=== PATIENT | female | born 1945 | race Caucasian/White ===

== ENCOUNTER → 2016-09-09 | Outpatient (REF) | payer MEDICARE, OTHER | LOC: M SFHCWAGY 13:25 | PROVIDERS: ATTEND Nurse Practitioner Women's Health | DX: Z12.4 Encounter for screening for malignant neoplasm of cervix (principal); Z12.12 Encounter for screening for malignant neoplasm of rectum; Z80.41 Family history of malignant neoplasm of ovary | CPT/HCPCS: 36415; 82270; 86304; G0101; G0123 ==

== ENCOUNTER → 2017-08-25 | Outpatient (CLI) | payer MEDICARE, OTHER | LOC: M WHC 11:07 | DX: Z80.41 Family history of malignant neoplasm of ovary (principal) | CPT/HCPCS: 76830 ==

== ENCOUNTER → 2017-12-23 | Outpatient (REF) | payer MEDICARE, OTHER | LOC: M SFHCWAGY 09:54 | DX: Z12.4 Encounter for screening for malignant neoplasm of cervix (principal); N95.2 Postmenopausal atrophic vaginitis ==

== ENCOUNTER → 2017-12-23 | Outpatient (CLI) | payer MEDICARE, OTHER ==
[2017-12-23 18:15] LABS: BASO # 0.1 10^3/uL (0.0-0.2); BASO % 0.7 % (0.0-1.0); EOS # 0.6 10^3/uL (0.0-0.50); EOS % 6.5 % (0.0-3.0); HEMATOCRIT 42.2 % (36.0-47.0); HEMOGLOBIN 13.3 g/dl (12.0-15.5); IMMATURE GRANULOCYTE % 0.3 % (0-3.0); LYMPH # 3.9 10^3/uL (1.5-4.5); LYMPH % 43.4 % (24.0-44.0); MEAN CORPUSCULAR HEMOGLOBIN 29.8 pg (27.0-33.0); MEAN CORPUSCULAR HGB CONC 31.5 g/dl (32.0-36.5); MEAN CORPUSCULAR VOLUME 94.4 fl (80.0-96.0); MONO # 0.8 10^3/uL (0.0-0.8); MONO % 8.7 % (0.0-5.0); NEUTROPHILS # 3.7 10^3/uL (1.8-7.7); NEUTROPHILS % 40.4 % (36.0-66.0); PLATELET COUNT, AUTOMATED 253 10^3/uL (150-450); RED BLOOD COUNT 4.47 10^6/uL (4.00-5.40); RED CELL DISTRIBUTION WIDTH 13.4 % (11.5-14.5); WHITE BLOOD COUNT 9.1 10^3/uL (4.0-10.0)
[2017-12-23 19:00] LABS: ALBUMIN 3.8 GM/DL (3.2-5.2); ALBUMIN/GLOBULIN RATIO 1.23 (1.00-1.93); ALKALINE PHOSPHATASE 81 U/L (45-117); ALT/SGPT 28 U/L (12-78); ANION GAP 6 MEQ/L (8-16); AST/SGOT 19 U/L (7-37); BILIRUBIN,TOTAL 0.2 MG/DL (0.2-1.0); BLOOD UREA NITROGEN 20 MG/DL (7-18); CALCIUM LEVEL 8.9 MG/DL (8.8-10.2); CARBON DIOXIDE LEVEL 28 MEQ/L (21-32); CHLORIDE LEVEL 107 MEQ/L (98-107); CREATININE FOR GFR 0.61 MG/DL (0.55-1.30); GLOMERULAR FILTRATION RATE > 60.0 (>39); GLUCOSE, FASTING 96 MG/DL (70-100); SODIUM LEVEL 141 MEQ/L (136-145); TOTAL PROTEIN 6.9 GM/DL (6.4-8.2)
== END ==
LOC: M RAD 16:30
DX: R22.42 Localized swelling, mass and lump, left lower limb (principal); M71.22 Synovial cyst of popliteal space [Baker], left knee (principal); M79.89 Other specified soft tissue disorders; E66.01 Morbid (severe) obesity due to excess calories; Z68.41 Body mass index [BMI] 40.0-44.9, adult; Z12.4 Encounter for screening for malignant neoplasm of cervix; N95.2 Postmenopausal atrophic vaginitis; E03.9 Hypothyroidism, unspecified; Z12.12 Encounter for screening for malignant neoplasm of rectum
CPT/HCPCS: 93971

== ENCOUNTER → 2018-01-06 | Outpatient (REF) | payer MEDICARE, OTHER ==
[2018-01-06 17:47] LABS: CHOLESTEROL LEVEL 233 MG/DL (<200); CHOLESTEROL RISK RATIO 5.177 (<5); HDL CHOLESTEROL 45 MG/DL (>40); LDL CHOLESTEROL 160 MG/DL (<100); NON-HDL-C 188 MG/DL; TRIGLYCERIDES LEVEL 142 MG/DL (<150)
[2018-01-06 18:39] LABS: TOTAL 25(OH) VITAMIN D 17.5 NG/ML (30.0-100.0)
[2018-01-08 10:47] LABS: CA 125 4.6 U/ML (<30.2)
== END ==
LOC: M SFHCCAPE 09:34
DX: E78.5 Hyperlipidemia, unspecified (principal); Z78.0 Asymptomatic menopausal state; M71.22 Synovial cyst of popliteal space [Baker], left knee; I83.10 Varicose veins of unspecified lower extremity with inflammation; M17.11 Unilateral primary osteoarthritis, right knee; Z68.41 Body mass index [BMI] 40.0-44.9, adult; Z80.41 Family history of malignant neoplasm of ovary
CPT/HCPCS: 86304

== ENCOUNTER → 2019-01-11 | Outpatient (REF) | payer MEDICARE, OTHER ==
[2019-01-13 14:07] LABS: HPV HYBRID CAPTURE II Negative (Negative)
== END ==
LOC: M SFHCWAGY 09:29
PROVIDERS: ATTEND Nurse Practitioner Women's Health
DX: Z12.4 Encounter for screening for malignant neoplasm of cervix (principal); Z80.41 Family history of malignant neoplasm of ovary; N95.8 Other specified menopausal and perimenopausal disorders
CPT/HCPCS: 36415; 86304; 87624; G0101; G0123

== ENCOUNTER → 2019-11-04 | Outpatient (CLI) | payer MEDICARE, OTHER ==
--- NOTE | 2020-01-02 08:19 | EEG ---
DATE: 11/04/2019 REFERRING PHYSICIAN: Dr. Rosendo Bazzi HISTORY: The patient is a 74-year-old woman with episodes of passing out. This EEG was done to rule out epileptic potential. MEDICATIONS: - Aspirin - Savanna - Albuterol - Multivitamin - Vitamin D3 TECHNICAL DESCRIPTION: This baseline EEG was recorded by 21-scalp, ear, and two EKG electrodes and was reviewed in bipolar and referential montages following reformatting in 10-20 international electrode placement system. INTERPRETATION: Patient was noted to be in awake and drowsy states during this EEG. Resting and awake background rhythm consisted of well-formed posterior dominant rhythm with anterior/posterior gradient comprising of 9 Hz alpha activity measuring 15-40 microvolts in amplitude which was symmetric and reactive to eye opening. Attenuation of posterior dominant rhythm was seen during transition to drowsiness. Stage 1 and 2 sleep were reviewed and were symmetric bilaterally. Hyperventilation with good effort remained unremarkable. Photic stimulation at 3-30 Hz elicited symmetric photic driving especially in mid frequencies. No focal, lateralizing, or epileptiform abnormalities were seen. No relevant clinical activity was noted. EKG lead revealed sinus rhythm with left bundle branch block and wide QRS complexes. CONCLUSION: This EEG in awake, drowsy states, stage 1 and 2 sleep is within normal limits. EKG revealed left bundle branch block pattern. Clinical correlation is recommended. MTDD
== END ==
LOC: M SLEEP 08:30
PROVIDERS: ATTEND Psychiatry & Neurology Clinical Neurophysiology
DX: R56.9 Unspecified convulsions (principal)

== ENCOUNTER → 2020-01-30 | Outpatient (REF) | payer MEDICARE, OTHER | LOC: M PLALAB 14:10 | PROVIDERS: ATTEND Nurse Practitioner Women's Health | DX: Z01.419 Encounter for gynecological examination (general) (routine) without abnormal findings (principal); Z80.41 Family history of malignant neoplasm of ovary | CPT/HCPCS: 36415; 86304; G0101; G0123 ==

== ENCOUNTER → 2020-02-02 | Outpatient (CLI) | payer MEDICARE, OTHER ==
--- NOTE | 2020-02-06 16:43 | ECWPNPC ---
PATIENT NAME: WOODROW CARNEY : 1945 GENDER: FEMALE VISIT DATE: 02/02/2020 DISCHARGE DATE: 02/02/20 1408 VISIT LOCKED DATE TIME: PHYSICIAN: MAEGAN PICKENS PHYSICIAN PAGER NO: ACTIVE RESOURCE: MAEGAN PICKENS REASON FOR APPOINTMENT 1. CHRONIC LOW BACK /KNEE HISTORY OF PRESENT ILLNESS DEPRESSION SCREENING: PHQ-2 (2015 EDITION) LITTLE INTEREST OR PLEASURE IN DOING THINGS?NOT AT ALL FEELING DOWN, DEPRESSED, OR HOPELESS?NOT AT ALL TOTAL SCORE0 GENERAL: 74-YEAR-OLD FEMALE REFERRED BY PRIMARY CARE AT [facility] TO EVALUATE CHRONIC LOW BACK PAIN. LONG HISTORY OF LOW BACK PAIN. PATIENT IS BASICALLY WHEELCHAIR DEPENDENT. STATES SHE IS FEARFUL OF WALKING DUE TO HISTORY OF SYNCOPAL EPISODES. SHE HAS A BAD RIGHT KNEE AND WAS OFFERED KNEE REPLACEMENT OR SURGERY AND PATIENT DID NOT WANT TO HAVE SURGERY. PAIN IN LOW BACK IS AGGRAVATED WITH STANDING OR LAYING DOWN. NO RECENT PHYSICAL THERAPY. DISCUSSED INTERVENTIONAL TREATMENT OPTIONS-. SHE REALLY ISN'T INTERESTED IN INJECTION THERAPY. SHE WAS HOPING WE COULD DO INJECTIONS INTO HER KNEE. IF SHE CHANGES HER MIND IN REGARDS TO INTERVENTIONAL THERAPY WE WOULD NEED AN MRI OF HER LUMBOSACRAL SPINE . I WOULD ONLY ORDER AN MRI IF SHE HAS ATTENDED PHYSICAL THERAPY FIRST.- -. FALL RISK SCREENING: SCREENING :ONE FALL WITHOUT INJURY IN THE PAST YEAR IN MAY PAIN SCREENING: PATIENT HAS A COMPLAINT OF ACUTE OR CHRONIC PAIN :YES LOCATION OF PAIN:LEFT HIP, KNEES INTENSITY OF PAIN (SCALE OF 1 TO 10):6 KNESS 5/6 WHEN WALKING BACK 5/6 WHEN WALKING WHAT DOES YOUR PAIN FEEL LIKE:ACHING DURATION:CONSTANT ONLY WHEN MOVING PAIN IS INCREASED BY:ACTIVITIES, PROLONGED STANDING PAIN IS DECREASED BY:USE OF PAIN MEDICATIONS, SITTING NURSING NOTE: - - -. PAIN CENTER INTAKE QUESTIONS: DO YOU HAVE A HISTORY OF MRSA? :NO DO YOU TAKE A BLOOD THINNERS? :YES DO YOU HAVE ANY BLEEDING DISORDERS? :NO ANY NEW NUMBNESS OR WEAKNESS IN YOUR LEGS OR ARMS? :NO ANY PACEMAKER,DEFIBRILLATOR, OR DORSAL COLUMN STIMULATOR? :NO DO YOU HAVE ANY RASHES OR OPEN SORES? :NO ARE YOU ALLERGIC TO IV DYE? :NO ARE YOU DIABETIC? :NO ANY NEW PROBLEMS WITH YOUR MEDICATIONS? :NO HAVE YOU RECEIVED A VACCINE IN THE PAST 30 DAYS? :NO DO YOU PLAN TO RECEIVE A VACCINE IN THE NEXT 21 DAYS? :YES FLU VAC IN THE NEXT FEW DAYS DO YOU NEED ANY PRESCRIPTION? :NO DO YOU TAKE ANY IMMUNOSUPPRESSIVE MEDICATIONS? :NO CURRENT MEDICATIONS TAKING FEXOFENADINE HCL 180MG TABLET 1 TAB(S) P.O. QHS TAKING ASPIRIN 325 MG TABLET 1 TABLET ORALLY ONCE A DAY TAKING CRANBERRY OTC TABLET 1 TAB ORALLY OCC TAKING IBUPROFEN 200 MG TABLET 1 TABLET NEEDED ORALLY EVERY 6 HRS TAKING MULTIVITAMINS - CAPSULE 1 CAP ORALLY DAILY TAKING KNEE BRACE - MISCELLANEOUS DIRECTED TAKING VITAMIN D 1000 UNIT TABLET 1 TABLET ORALLY ONCE A DAY TAKING WHEELCHAIR - MISCELLANEOUS DIRECTED TAKING KNEE BRACE - MISCELLANEOUS DIRECTED TAKING PROAIR HFA 108 (90 BASE) MCG/ACT AEROSOL SOLUTION 2 PUFFS NEEDED INHALATION QID PRN TAKING ALBUTEROL SULFATE (2.5 MG/3ML) 0.083% NEBULIZATION SOLUTION 3 ML NEEDED INHALATION FOUR TIMES A DAY NEEDED TAKING FISH OIL 1000 MG CAPSULE 1 CAPSULE ORALLY ONCE A DAY NOT-TAKING FLUCONAZOLE 150 MG TABLET 1 TABLET ORALLY DIRECTED NOT-TAKING CEPHALEXIN 500 MG TABLET 1 TABLET ORALLY EVERY 6 HRS NOT-TAKING HYDROCHLOROTHIAZIDE 25 25 MG TABLET 1 TAB(S) ORAL DAILY NOT-TAKING COQ10 10 MG CAPSULE 1 CAPSULE WITH A MEAL ORALLY ONCE A DAY NOT-TAKING AMOXICILLIN 500 MG TABLET 6 TABLETS (3 G) 1 HR PRIOR TO PROCEDURE AND 3 TABS (1.5 G) 6 HRS AFTER INITIAL DOSE ORALLY DIRECTED NOT-TAKING PROVENTIL HFA 108 (90 BASE) MCG/ACT AEROSOL SOLUTION 2 PUFFS NEEDED INHALATION EVERY 4 HRS NOT-TAKING COSAMIN ASU ADVANCED FORMULA CAPSULE ORALLY MEDICATION LIST REVIEWED AND RECONCILED WITH THE PATIENT PAST MEDICAL HISTORY ENVIROMENTAL ALLERGIES ASTHMA HIGH CHOLESTEROL ARTHRITIS HYPERTENSION VARICOSE VEINS ALLERGIES TETRACYCLINE HCL: CONFUSION HORSE SERUM: UNSURE TETANUS: UNSURE TYLENOL: RASH POLYSPORIN: RASH CELEBREX: RASH BANDAIDS: RASH SURGICAL HISTORY T&A BASAL CELL X2 LUMPECTOMY RIGHT BREAST-BENIGN 1991 ORAL SURGERY D + C X2 RIGHT HIP REPLACEMENT 01/10/10 1 UPPER AND 1 LOWER TOOTH EXTRACTION 02/24 FAMILY HISTORY FATHER: 49 YRS, [place] MOTHER: 58 YRS, CANCER ( OVARIAN) ; PASSED AFTER HER COLONOSCOPY SCREENING, AUTOPSY FOUND A LARGE ABDOMINAL MASS WITH METS TO HER BRAIN. PATERNAL GRAND MOTHER: BREAST CANCER MATERNAL GRAND MOTHER: OVARIAN CANCER 1 BROTHER(S) . 2DAUGHTER(S) - HEALTHY. SOCIAL HISTORY GENERAL: TOBACCO USE ARE YOU A:NONSMOKER LATEX QUESTIONNAIRE LATEX ALLERGY : HAVE YOU EVER DEVELOPED ANY TYPE OF REACTION AFTER HANDLING LATEX PRODUCTS SUCH RUBBER GLOVES, CONDOMS, DIAPHRAGMS, BALLOONS, SOCKS, OR UNDERWEAR?NO LATEX ALLERGY : HAVE YOU EVER DEVELOPED ANY TYPE OF REACTION DURING OR AFTER DENTAL APPOINTMENT, VAGINAL/RECTAL EXAMINATION, SURGICAL PROCEDURE, OR ANY OTHER EXPOSURE?NO LATEX RISK : HAVE YOU EVER HAD ANY DIFFICULTY BREATHING OR HIVES AFTER EATING OR HANDLING ANY FRUITS, OR VEGETABLES; SUCH KIWI, BANANAS, STONE FRUITS, OR CHESTNUTSNO LATEX RISK : DO YOU HAVE A PREVIOUS PERSONAL HISTORY OF MORE THAN NINE SURGERIES, SPINA BIFIDA, OR REPEATED CATHERIZATIONS? NO LATEX RISK : ARE YOU FREQUENTLY EXPOSED TO LATEX PRODUCTS IN YOUR OCCUPATION?NO DATE ASKED : 02/02/2020 BMI CARE GOAL FOLLOW-UP ABOVE NORMAL BMI FOLLOW-UPDIETARY MANAGEMENT EDUCATION, GUIDANCE, AND COUNSELING, WEIGHT MONITORING ALCOHOL SCREENING POINTS: 0, INTERPRETATION: NEGATIVE. RECREATIONAL DRUG USE DENIES. CAFFEINE 2-5/DAY. SEXUAL HX HAD SEX IN THE LAST 12 MONTHS (VAGINAL, ORAL, OR ANAL)?NO LMP:POST MENOPAUSE HAVE YOU EVER HAD AN STD?NO HIV / HEP-C SCREENING HIV TEST OFFERED TO PATIENT:YES DATE OFFERED:01/11/2019 TEST ACCEPTED:NO REASON:PATIENT DECLINED BROCHURE PROVIDED TO PATIENTNO FAITH ALEVISM. LANGUAGE AMERICAN. EDUCATION COLLEGE. LEARNING BARRIERS / SPECIAL NEEDS CHANGE FROM LAST VISIT?YES 05/26/2019 BARRIERS TO LEARNING?NO HEARING IMPAIRED?NO VISION IMPAIRED?YES FLOATERS COGNITIVELY IMPAIRED?NO :CORRECTIVE LENSES READINESS TO LEARN?YES LEARNING PREFERENCES?NO LEARNING CAPABILITIES PRESENT?YES EMOTIONAL BARRIERS?NO SPECIAL DEVICES?YES :CANE THIRD GRADE TEACHER NEEDED?NO DOMESTIC VIOLENCE DO YOU FEEL SAFE IN YOUR ENVIRONMENT?YES OCCUPATION: RETIRED. DIET: NO MILK, REGULAR. APPETITE GOOD. EXERCISE: NO REGULAR EXERCISE. MARITAL STATUS: . OTHERS AT HOME: CHILD. NEW PATIENT PAIN DIARY FROM 0-10, WHAT LEVEL IS YOUR PAIN TODAY? 08/20 PAIN CLINIC PFS, CLERGY, PUBLIC HEALTH REFERRALS HAS THE PATIENT BEEN EDUCATED REGARDING HIS/HER PLAN OF CARE?YES HAS THE PATIENT BEEN EDUCATED REGARDING PAIN, THE RISK FOR PAIN, THE IMPORTANCE OF EFFECTIVE PAIN MANAGEMENT, AND THE PAIN ASSESSMENT PROCESS?YES HOSPITALIZATION/MAJOR DIAGNOSTIC PROCEDURE SURGERIES REVIEW OF SYSTEMS CONSTITUTIONAL: ANY RECENT FEVER NO . CHILLS NO . WEIGHT CHANGE OF UNKNOWN REASONS NO . GASTROENTEROLOGY: NEW UNEXPLAINABLE CHANGES IN BOWEL CONTROL NO . CONSTIPATION NO . GENITOURINARY: ANY NEW CHANGE IN BLADDER CONTROL? NO . NEUROLOGY: NEW ONSET DIZZINESS OR NEUROLOGICAL CHANGES NOT MENTIONED NO . NEW NUMBNESS OR PAIN PATTERNS NOT MENTIONED AND PERTINENT TO TODAY'S VISIT NO . CARDIOLOGY: NEW CHEST PRESSURE NO . NEW CHEST PAIN NO . RESPIRATORY: UNEXPLAINABLE COUGH NO . NEW SHORTNESS OF BREATH NO . VITAL SIGNS WT 281.0 LBS, HT 65.5 IN, BMI 46.04 INDEX, BP 137/70 MM HG, HR 72 /MIN, RR 18 /MIN, TEMP 98.1 F, OXYGEN SAT % 98%, SAFE IN ENV? (Y/N) YES, NA INITIALS AW 1312, REVIEWED BY: BENJAMIN. EXAMINATION GENERAL EXAMINATION: GENERAL AWAKE,ALERT ,PLEASANT . PSYCH AFFECT NORMAL . LUNGS: LUNG DAVALOS ARE CLEAR TO AUSCULTATION BILATERALLY. GOOD MOVEMENT OF AIR . HEART: S1, S2 IN A REGULAR RATE AND RHYTHM. NO SIGNIFICANT MURMURS, RUBS OR GALLOPS NOTED . LUMBAR: PALPATION: + FOR PAIN OVER L/S SPINE. + FOR PAIN OVER L/S PARASPINALS . ASSESSMENTS LOW BACK PAIN AT MULTIPLE SITES - M54.5 (PRIMARY) TREATMENT LOW BACK PAIN AT MULTIPLE SITES NOTES: RECOMMEND PHYSICAL THERAPY 2 TIMES A WEEK X6 WEEKS. PATIENT IS ADVISED THAT SHE WOULD OBTAIN THIS PRESCRIPTION FROM PRIMARY CARE SHOULD SHE CHANGE HER MIND. I WILL SEE HER IN FOLLOW-UP IF SHE DECIDES ON PURSUING INTERVENTIONAL THERAPY. PROCEDURE CODES FA211 ESTABILISHED PATIENT [facility] CHARGE DISPOSITION & COMMUNICATION FOLLOW UP PATIENT WILL CALL US IF NEEDED (REASON: LOW BACK PAIN) ELECTRONICALLY SIGNED BY NARINDER HAWKINS ON 02/06/2020 AT 01:37 PM EDT DISCLAIMER : THIS IS A VISIT SUMMARY EXTRACTED FROM THE [employer] CHART. IT IS NOT A COPY OF THE [employer] PROGRESS NOTE. JARRED
== END ==
LOC: M PAIN 13:00
PROVIDERS: ATTEND Nurse Practitioner Family
DX: M54.5 Low back pain (principal); G89.29 Other chronic pain; J45.909 Unspecified asthma, uncomplicated; I10 Essential (primary) hypertension; Z96.641 Presence of right artificial hip joint; Z88.1 Allergy status to other antibiotic agents; Z88.6 Allergy status to analgesic agent; Z88.7 Allergy status to serum and vaccine; Z88.8 Allergy status to other drugs, medicaments and biological substances; Z91.09 Other allergy status, other than to drugs and biological substances; E66.01 Morbid (severe) obesity due to excess calories; Z68.42 Body mass index [BMI] 45.0-49.9, adult; Z79.82 Long term (current) use of aspirin; Z79.899 Other long term (current) drug therapy

== ENCOUNTER 2021-01-25 18:44 | Day surgery (SDC) | payer MEDICARE, OTHER ==
[~2021-01-25] VITALS: Ht 170.2 cm; Wt 136.4 kg
--- OUTSIDE RECORDS SUMMARY | 2021-01-25 18:49 | CCD | Continuity of Care Document ---
Author Author Emily SEPULVEDA F.N.P. Organization Unknown Address [address], [address] [place] [address] Phone [phone] Care Team Providers Care Marketing Analytics Analyst Name Role Phone Delmi Londono DO AUTM [phone] Problems Description No Information Available Social History Type Date Description Comments Sex Unknown Tobacco Use Start: Unknown Never Smoked Cigarettes ETOH Use Rarely consumes alcohol Tobacco Use Start: Unknown Patient has never smoked Sun Exposure moderate amount of sun exposure Sun Exposure Has experienced blistering from sunburns Sun Exposure Uses > 30 SPF Sun Exposure Has never used tanning bed Allergies, Adverse Reactions, Alerts Active Allergies Criticality Reaction | Severity Comments Date Tylenol Unable to assess criticality 06/23/2012 Celebrex Unable to assess criticality 06/23/2012 Tetracycline Unable to assess criticality 06/23/2012 Tape Unable to assess criticality 06/23/2012 Tetanus Toxoids Unable to assess criticality 06/23/2012 Horse Serum Unable to assess criticality 06/23/2012 Polysporin Unable to assess criticality 12/12/2019 Medications Active Medications SIG Qnty Indications Ordering Provide r Date Ciclopirox 8% Solution Apply to affected nail everyday, remove on Thursday with nail american remove and repeat 19.8ml B35.1 Soumya Akira'felecia, F.N.P. 12/05/2020 Nystatin 964427Nopd/GM Cream apply abdominal fold and inguinal folds twice a day x 2 weeks then prn for flares. 60gm B37.2 Soumya Akira'felecia, F.N.P. 12/05/2020 Fexofenadine HCL 90 MG Unknown Multivitamins Unknown Aspirin Unknown Ibuprofen Unknown Proair HFA Unknown Vitamin D Unknown Pulmicort Unknown Cranberry Unknown Immunizations Description No Information Available Vital Signs Date Vital Result Comment 12/05/2020 1:21pm BP Systolic 133 mmHg BP Diastolic 62 mmHg Weight 280.00 lb Height 67 inches 5'7" BMI (Body Mass Index) 43.8 kg/m2 12/28/2018 10:20am BP Systolic 160 mmHg BP Diastolic 62 mmHg Results Description No Information Available Procedures Date Code Description Status 12/05/2020 89281 Office/Outpatient Established Mo d MDM 30-39 Min Completed 12/05/2020 74839 Destruction Of Lesions 2-14 Comp leted 12/05/2020 12155 Destruction Of Lesion First Comp leted Medical Devices Description No Information Available Encounters Type Date Location Provider Dx Diagnosis Office Visit 12/05/2020 1:00p Main Office Soumya Champion'felecia, F.N.P. L57.0 Actinic keratosis R23.4 Changes in skin texture D23.72 Oth benign neoplasm skin/ le ft lower limb, including hip D18.01 Hemangioma of skin and subcu taneous tissue L82.1 Other seborrheic keratosis B35.1 Tinea unguium L21.8 Other seborrheic dermatitis B37.2 Candidiasis of skin and nail Z85.828 Personal history of other ma lignant neoplasm of skin Z08 Encntr for follow-up exam af ter trtmt for malignant neoplasm Assessments Date Code Description Provider 12/05/2020 L57.0 Actinic keratosis Soumya Champion'robert rivera, F.N.P. 12/05/2020 R23.4 Changes in skin texture Meenakshi Sepulveda, F.N.P. 12/05/2020 D23.72 Other benign neoplasm of skin of left lower limb, including Soumya Champion'felecia, F.N.P. 12/05/2020 D18.01 Hemangioma of skin and subcutane ous tissue Soumya Sepulveda, F.N.P. 12/05/2020 L82.1 Other seborrheic keratosis Digna Champion'felecia, F.N.P. 12/05/2020 B35.1 Tinea unguium Soumya Gallo n, F.N.P. 12/05/2020 L21.8 Other seborrheic dermatitis Hubert RosadoNGeraldineP. 12/05/2020 B37.2 Candidiasis of skin and nail Cat cassandra Hubert SepulvedaN.P. 12/05/2020 Z85.828 Personal history of other malign ant neoplasm of skin Ilan Smith 12/05/2020 Z08 Encounter for follow-up examinat ion after completed treatmen Precious Smith. Plan of Treatment Future Appointment(s):* 12/09/2021 1:00 pm - Precious Smith. at Main Office 12/05/2020 - Precious Smith.* L57.0 Actinic keratosis* Comments:* Discussed actinic keratoses are precancerous proliferations that occur within sun damaged skin. If untreated, a small subset of AK's can develop into SCC's. Discussed treatment options of [id number] LN2 in depth to include that the areas treated will get red, bubble up/blister, maybe get a little weepy, form a scab then heal. Discussed S/E to include scarring, risk of hypopigmentation, bleeding, infectionConsent signed todayLN2 to 2 AK's today. Wound care instructions given.Sunscreen use and sun protection discussed. Contact office if AK's fail to resolve despite treatment. Instructed to call with any problems * R23.4 Changes in skin texture* Comments:* See above. * D23.72 Other benign neoplasm of skin of left lower limb, including* Comments: * DF - Reassurance. Literature given on monthly self skin evaluations. Sunscreen and sun protection discussed. * D18.01 Hemangioma of skin and subcutaneous tissue* Comments:* Reassurance. * L82.1 Other seborrheic keratosis* Comments:* Reassurance Discussed seborrheic keratoses are benign warty growths on the skin that appear with age and that they are not contagious The precise cause of Simone K's is unknown although can run in families so genes may play a role Discussed if ever becomes irritated to call for a removal appointment * B35.1 Tinea unguium* New Medication:* Ciclopirox 8 % - Apply to affected nail everyday, remove on Thursday with nail american remove and repeat * Comments:* Discussed onychomycosis is a fungal infection of the nails that causes discoloration, thickening, and separation from the nail bed.Discussed treatment options (topical and oral antifungals, no treatment)Discussed Ciclopirox solution and that will need to use daily for 48 weeksStart Ciclopirox solution. Apply daily to affected toenails. Remove on Sundays with nail american remover and repeat for 48 weeksDiscussed to thoroughly dry feet and in between toes after showering/bathing because fungus thrives in dark, warm, moist places.Instructed to call with any problems * L21.8 Other seborrheic dermatitis* Comments:* Declines treatment at this time. * B37.2 Candidiasis of skin and nail* New Medication:* Nystatin [id number] Unit/GM - apply abdominal fold and inguinal folds twice a day x 2 weeks then prn for flares. * Comments:* Discussed diagnosis and treatment optionsWill apply Nystatin cream BID x 2 weeksDiscussed to be sure that drying thoroughly after showering Discussed to call if it does not resolve and I will send in a prescription for oral Diflucan. * Z85.828 Personal history of other malignant neoplasm of skin* Comments:* Continue to monitor for recurrence BCC's. * Z08 Encounter for follow-up examination after completed treatmen* Comments:* Reviewed sign and symptoms of skin cancer, including ABCDE's of melanoma.Discussed the importance of using a sunscreen with Zinc Oxide or Titanium Dioxide and to reapply every 2-3 hours.Discussed importance of avoidance of tanning beds and excessive UV exposure.Discussed the importance of monthly self skin examinations.Recommended a skin cancer screening on a yearly basis.Discussed increased risk of skin cancer due to sunburn. See above. * Follow up:* Yearly/PRN - [facility] Functional Status Description No Information Available Mental Status Description No Information Available Referrals Description No Information Available
--- OUTSIDE RECORDS SUMMARY | 2021-01-25 18:50 | CCD ---
Author Author [facility] Organization [facility] Address Unknown Phone Unavailable Care Team Providers [facility] Dean Name Role Phone Lobato, Charles PA Unavailable Unavailable Lobato, Charles PA Unavailable Unavailable Lobato, Charles PA Unavailable Unavailable Lobato, Charles PA Unavailable Unavailable Lobato, Charles PA Unavailable Unavailable Lobato, Charles PA Unavailable Unavailable Lobato, Charles PA Unavailable Unavailable Lobato, Charles PA Unavailable Unavailable Lobato, Charles PA Unavailable Unavailable Lobato, Charles PA Unavailable Unavailable Lobato, Charles PA Unavailable Unavailable Lobato, Charles PA Unavailable Unavailable Lobato, Charles PA Unavailable Unavailable Macsherry, Leatha COMMODITY SPECIALIST Unavailable Unavailable Macsherry, Leatha COMMODITY SPECIALIST Unavailable Unavailable Macsherry, Leatha COMMODITY SPECIALIST Unavailable Unavailable Macsherry, Leatha COMMODITY SPECIALIST Unavailable Unavailable Macsherry, Leatha COMMODITY SPECIALIST Unavailable Unavailable Macsherry, Leatha COMMODITY SPECIALIST Unavailable Unavailable Macsherry, Leatha COMMODITY SPECIALIST Unavailable Unavailable Macsherry, Leatha COMMODITY SPECIALIST Unavailable Unavailable Macsherry, Leatha COMMODITY SPECIALIST Unavailable Unavailable Macsherry, Leatha COMMODITY SPECIALIST Unavailable Unavailable Macsherry, Leatha COMMODITY SPECIALIST Unavailable Unavailable Macsherry, Leatha COMMODITY SPECIALIST Unavailable Unavailable Macsherry, Leatha COMMODITY SPECIALIST Unavailable Unavailable Macsherry, Leatha COMMODITY SPECIALIST Unavailable Unavailable Macsherry, Leatha COMMODITY SPECIALIST Unavailable Unavailable Macsherry, Leatha COMMODITY SPECIALIST Unavailable Unavailable Macsherry, Leatha COMMODITY SPECIALIST Unavailable Unavailable Macsherry, Leatha COMMODITY SPECIALIST Unavailable Unavailable Macsherry, Leatha COMMODITY SPECIALIST Unavailable Unavailable Macsherry, Leatha COMMODITY SPECIALIST Unavailable Unavailable Macsherry, Leatha COMMODITY SPECIALIST Unavailable Unavailable Macsherry, Leatha COMMODITY SPECIALIST Unavailable Unavailable Macsherry, Leatha COMMODITY SPECIALIST Unavailable Unavailable Macsherry, Leatha COMMODITY SPECIALIST Unavailable Unavailable Macsherry, Leatha COMMODITY SPECIALIST Unavailable Unavailable Rosendo Bazzi MD Unavailable Unavailable Rosendo Bazzi MD Unavailable Unavailable Rosendo Bazzi MD Unavailable Unavailable Rosendo Bazzi MD Unavailable Unavailable Rosendo Bazzi MD Unavailable Unavailable Rosendo Bazzi MD Unavailable Unavailable Rosendo Bazzi MD Unavailable Unavailable Rosendo Bazzi MD Unavailable Unavailable Rosendo Bazzi MD Unavailable Unavailable Rosendo Bazzi MD Unavailable Unavailable Rosendo Bazzi MD Unavailable Unavailable Rosendo Bazzi MD Unavailable Unavailable Rosendo Bazzi MD Unavailable Unavailable Rosendo Bazzi MD Unavailable Unavailable Rosendo Bazzi MD Unavailable Unavailable Rosendo Bazzi MD Unavailable Unavailable Rosendo Bazzi MD Unavailable Unavailable Rosendo Bazzi MD Unavailable Unavailable Rosendo Bazzi MD Unavailable Unavailable Rosendo Bazzi MD Unavailable Unavailable Rosendo Bazzi MD Unavailable Unavailable Rosendo Bazzi MD Unavailable Unavailable Rosendo Bazzi MD Unavailable Unavailable Rosendo Bazzi MD Unavailable Unavailable Rosendo Bazzi MD Unavailable Unavailable Rosendo Bazzi MD Unavailable Unavailable Rosendo Bazzi MD Unavailable Unavailable Rsoendo Bazzi MD Unavailable Unavailable Rosendo Bazzi MD Unavailable Unavailable Rosendo Bazzi MD Unavailable Unavailable Rosendo Bazzi MD Unavailable Unavailable Rosendo Bazzi MD Unavailable Unavailable Rosendo Bazzi MD Unavailable Unavailable Antonietta Rodriguez PA Unavailable Unavailable Antonietta Rodrigueze PA Unavailable Unavailable Antonietta Rodriguez Desiree PA Unavailable Unavailable Antonietta Rodriguez Desiree PA Unavailable Unavailable Rodriguez, Antonietta Desiree PA Unavailable Unavailable Rodriguez, Antonietta Desiree PA Unavailable Unavailable RodriguezAntonietta Desiree PA Unavailable Unavailable Michael Antonietta Desiree PA Unavailable Unavailable Rodriguez, Antonietta Desiree PA Unavailable Unavailable Rodriguez, Antonietta Desiree PA Unavailable Unavailable Rodriguez, Antonietta Desiree PA Unavailable Unavailable Rodriguez, Antonietta Desiree PA Unavailable Unavailable Rodriguez, Antonietta Desiree PA Unavailable Unavailable Rodriguez, Antonietta Desiree PA Unavailable Unavailable Rodriguez, Antonietta Desiree PA Unavailable Unavailable Rodriguez, Antonietta Desiree PA Unavailable Unavailable Rodriguez, Antonietta Desiree PA Unavailable Unavailable Rodriguez, Antonietta Desiree PA Unavailable Unavailable Rodriguez, Antonietta Desiree PA Unavailable Unavailable Rodriguez, Antonietta Desiree PA Unavailable Unavailable Rodriguez, Antonietta Desiree PA Unavailable Unavailable Rodriguez, Antonietta Desiree PA Unavailable Unavailable Rodriguez, Antonietta Desiree PA Unavailable Unavailable Rodriguez, Antonietta Desiree PA Unavailable Unavailable Rodriguez, Antonietta Desiree PA Unavailable Unavailable Rodriguez, Antonietta Desiree PA Unavailable Unavailable Rodriguez, Antonietta Desiree PA Unavailable Unavailable Rodriguez, Antonietta Desiree PA Unavailable Unavailable Rodriguez, Antnoietta Desiree PA Unavailable Unavailable Rodriguez, Antonietta Desiree PA Unavailable Unavailable Rodriguez, Antonietta Desiree PA Unavailable Unavailable Rodriguez, Antonietta Desiree PA Unavailable Unavailable Rodriguez, Antonietta Desiree PA Unavailable Unavailable Rodriguez, Antonietta Desiree PA Unavailable Unavailable Rodriguez, Antonietta Desiree PA Unavailable Unavailable Rodriguez, Antonietta Desiree PA Unavailable Unavailable Rodriguez, Antonietta Desiree PA Unavailable Unavailable Rodriguez, Antonietta Desiree PA Unavailable Unavailable Rodriguez, Antonietta Desiree PA Unavailable Unavailable Rodriguez, Antonietta Desiree PA Unavailable Unavailable Rodriguez, Antonietta Desiree PA Unavailable Unavailable Rodriguez, Antonietta Desiree PA Unavailable Unavailable Rodriguez, Antonietta Desiree PA Unavailable Unavailable Rodriguez, Antonietta Desiree PA Unavailable Unavailable Rodriguez, Antonietta Desiree PA Unavailable Unavailable Rodriguze, Antonietta Desiree PA Unavailable Unavailable Rodriguez, Antonietta Desiree PA Unavailable Unavailable Rodriguez, Antonietta Desiree PA Unavailable Unavailable Rodriguez, Antonietta Desiree PA Unavailable Unavailable CHRISTIANA, J APOLINAR PA Unavailable Unavailable CHRISTIANA, J APOLINAR PA Unavailable Unavailable CHRISTIANA, J APOLINAR PA Unavailable Unavailable CHRISTIANA, J APOLINAR PA Unavailable Unavailable CHRISTIANA, J APOLINAR PA Unavailable Unavailable CHRISTIANA, J APOLINAR PA Unavailable Unavailable CHRISTIANA, J APOLINAR PA Unavailable Unavailable CHRISTIANA, J APOLINAR PA Unavailable Unavailable CHRISTIANA, J APOLINAR PA Unavailable Unavailable CHRISTIANA, J APOLINAR PA Unavailable Unavailable CHRISTIANA, J APOLINAR PA Unavailable Unavailable CHRISTIANA, J APOLINAR PA Unavailable Unavailable CHRISTIANA, J APOLINAR PA Unavailable Unavailable CHRISTIANA, J APOLINAR PA Unavailable Unavailable CHRISTIANA, J APOLINAR PA Unavailable Unavailable CHRISTIANA, J APOLINAR PA Unavailable Unavailable CHRISTIANA, J APOLINAR PA Unavailable Unavailable CHRISTIANA, J APOLINAR PA Unavailable Unavailable CHRISTIANA, J APOLINAR PA Unavailable Unavailable CHRISTIANA, J APOLINAR PA Unavailable Unavailable CHRISTIANA, J APOLINAR PA Unavailable Unavailable CHRISTIANA, J APOLINAR PA Unavailable Unavailable CHRISTIANA, J APOLINAR PA Unavailable Unavailable CHRISTIANA, J APOLINAR PA Unavailable Unavailable CHRISTIANA, J APOLINAR PA Unavailable Unavailable CHRISTIANA, J APOLINAR PA Unavailable Unavailable CHRISTIANA, J APOLINAR PA Unavailable Unavailable CHRISTIANA, J APOLINAR PA Unavailable Unavailable CHRISTIANA, J APOLINAR PA Unavailable Unavailable CHRISTIANA, J APOLINAR PA Unavailable Unavailable CHRISTIANA, J APOLINAR PA Unavailable Unavailable CHRISTIANA, J APOLINAR PA Unavailable Unavailable CHRISTIANA, J APOLINAR PA Unavailable Unavailable CHRISTIANA, J APOLINAR PA Unavailable Unavailable Rosendo Bazzi MD Unavailable Unavailable Rosendo Bazzi MD Unavailable Unavailable Rosendo Bazzi MD Unavailable Unavailable Rosendo Bazzi MD Unavailable Unavailable Rosendo Bazzi MD Unavailable Unavailable Rosendo Bazzi MD Unavailable Unavailable Rosendo Bazzi MD Unavailable Unavailable Rosendo Bazzi MD Unavailable Unavailable Rosendo Bazzi MD Unavailable Unavailable Rosendo Bazzi MD Unavailable Unavailable Rosendo Bazzi MD Unavailable Unavailable Rosendo Bazzi MD Unavailable Unavailable Rosendo Bazzi MD Unavailable Unavailable Rosendo Bazzi MD Unavailable Unavailable Rosendo Bazzi MD Unavailable Unavailable Rosendo Bazzi MD Unavailable Unavailable Rosendo Bazzi MD Unavailable Unavailable Rosendo Bazzi MD Unavailable Unavailable Rosendo Bazzi MD Unavailable Unavailable Rosendo Bazzi MD Unavailable Unavailable Rosendo Bazzi MD Unavailable Unavailable Rosendo Bazzi MD Unavailable Unavailable Rosendo Bazzi MD Unavailable Unavailable Rosendo Bazzi MD Unavailable Unavailable Rosendo Bazzi MD Unavailable Unavailable Rosendo Bazzi MD Unavailable Unavailable Rosendo Bazzi MD Unavailable Unavailable Rosendo Bazzi MD Unavailable Unavailable Rosendo Bazzi MD Unavailable Unavailable Rosendo Bazzi MD Unavailable Unavailable Rosendo Bazzi MD Unavailable Unavailable Rosendo Bazzi MD Unavailable Unavailable Rosendo Bazzi MD Unavailable Unavailable [place], Sera SYSTEMS INTEGRATION ADVISOR Unavailable Unavailable [place], Sera SYSTEMS INTEGRATION ADVISOR Unavailable Unavailable [place], Sera SYSTEMS INTEGRATION ADVISOR Unavailable Unavailable [place], Sera SYSTEMS INTEGRATION ADVISOR Unavailable Unavailable [place], Sera SYSTEMS INTEGRATION ADVISOR Unavailable Unavailable [place], Sera SYSTEMS INTEGRATION ADVISOR Unavailable Unavailable [place], Sera SYSTEMS INTEGRATION ADVISOR Unavailable Unavailable [place], Sera SYSTEMS INTEGRATION ADVISOR Unavailable Unavailable [place], Sera SYSTEMS INTEGRATION ADVISOR Unavailable Unavailable [place], Sera SYSTEMS INTEGRATION ADVISOR Unavailable Unavailable [place], Sera SYSTEMS INTEGRATION ADVISOR Unavailable Unavailable [place], Sera SYSTEMS INTEGRATION ADVISOR Unavailable Unavailable [place], Sera SYSTEMS INTEGRATION ADVISOR Unavailable Unavailable [place], Sera SYSTEMS INTEGRATION ADVISOR Unavailable Unavailable [place], Sera SYSTEMS INTEGRATION ADVISOR Unavailable Unavailable [place], Sera SYSTEMS INTEGRATION ADVISOR Unavailable Unavailable [place], Sera SYSTEMS INTEGRATION ADVISOR Unavailable Unavailable [place], Sera SYSTEMS INTEGRATION ADVISOR Unavailable Unavailable [place], Sera SYSTEMS INTEGRATION ADVISOR Unavailable Unavailable [place], Sera SYSTEMS INTEGRATION ADVISOR Unavailable Unavailable [place], Sera SYSTEMS INTEGRATION ADVISOR Unavailable Unavailable [place], Sera SYSTEMS INTEGRATION ADVISOR Unavailable Unavailable [place], Sera SYSTEMS INTEGRATION ADVISOR Unavailable Unavailable [place], Sera SYSTEMS INTEGRATION ADVISOR Unavailable Unavailable [place], Sera SYSTEMS INTEGRATION ADVISOR Unavailable Unavailable [place], Sera SYSTEMS INTEGRATION ADVISOR Unavailable Unavailable [place], Sera SYSTEMS INTEGRATION ADVISOR Unavailable Unavailable [place], Sera SYSTEMS INTEGRATION ADVISOR Unavailable Unavailable [place], Sera SYSTEMS INTEGRATION ADVISOR Unavailable Unavailable [place], Sera SYSTEMS INTEGRATION ADVISOR Unavailable Unavailable [place], Sera SYSTEMS INTEGRATION ADVISOR Unavailable Unavailable [place], Sera SYSTEMS INTEGRATION ADVISOR Unavailable Unavailable [place], Inez Dooley SYSTEMS INTEGRATION ADVISOR Unavailable Unavailable [place], Inez Dooley SYSTEMS INTEGRATION ADVISOR Unavailable Unavailable [place], Inez Dooley SYSTEMS INTEGRATION ADVISOR Unavailable Unavailable [place], Inez Dooley SYSTEMS INTEGRATION ADVISOR Unavailable Unavailable Cristiano, M Alesha PA-C Unavailable Unavailable Cristiano, M Alesha PA-C Unavailable Unavailable Cristiano, M Alesha PA-C Unavailable Unavailable Cristiano, M Alesha PA-C Unavailable Unavailable Cristiano, M Alesha PA-C Unavailable Unavailable Cristiano, M Alesha PA-C Unavailable Unavailable Cristiano, M Alesha PA-C Unavailable Unavailable Cristiano, M Alesha PA-C Unavailable Unavailable Cristiano, M Alesha PA-C Unavailable Unavailable Cristiano, M Alesha PA-C Unavailable Unavailable Cristiano, M Alesha PA-C Unavailable Unavailable Cristiano, M Alesha PA-C Unavailable Unavailable Cristiano, M Alesha PA-C Unavailable Unavailable Cristiano, M Alesha PA-C Unavailable Unavailable Cristiano, M Alesha PA-C Unavailable Unavailable Cristiano, M Alesha PA-C Unavailable Unavailable Cristiano, M Alesha PA-C Unavailable Unavailable Cristiano, M Alesha PA-C Unavailable Unavailable Cristiano, M Alesha PA-C Unavailable Unavailable Cristiano, M Alesha PA-C Unavailable Unavailable Cristiano, M Alesha PA-C Unavailable Unavailable Cristiano, M Alesha PA-C Unavailable Unavailable Cristiano, M Alesha PA-C Unavailable Unavailable Cristiano, M Alesha PA-C Unavailable Unavailable Cristiano, M Alesha PA-C Unavailable Unavailable Cristiano, M Alesha PA-C Unavailable Unavailable Cristiano, M Alseha PA-C Unavailable Unavailable Cristiano, M Alesha PA-C Unavailable Unavailable Cristiano, M Alesha PA-C Unavailable Unavailable Cristiano, M Alesha PA-C Unavailable Unavailable Cristiano, M Alesha PA-C Unavailable Unavailable Cristiano, M Alesha PA-C Unavailable Unavailable Cristiano, M Alesha PA-C Unavailable Unavailable Cristiano, M Alesha PA-C Unavailable Unavailable Cristiano, M Alesha PA-C Unavailable Unavailable Marian AIKEN MD Unavailable Unavailable Marian AIKEN MD Unavailable Unavailable DARELL, S AYMAN MD Unavailable Unavailable DARELL, S AYMAN MD Unavailable Unavailable DARELL, S AYMAN MD Unavailable Unavailable DARELL, S AYMAN MD Unavailable Unavailable DARELL, S AYMAN MD Unavailable Unavailable DARELL, S AYMAN MD Unavailable Unavailable DARELL, S AYMAN MD Unavailable Unavailable DARELL, S AYMAN MD Unavailable Unavailable DARELL, S AYMAN MD Unavailable Unavailable DARELL, S AYMAN MD Unavailable Unavailable DARELL, S AYMAN MD Unavailable Unavailable DARELL, S AYMAN MD Unavailable Unavailable DARELL, S AYMAN MD Unavailable Unavailable DARELL, S AYMAN MD Unavailable Unavailable DARELL, S AYMAN MD Unavailable Unavailable DARELL, S AYMAN MD Unavailable Unavailable DARELL, S AYMAN MD Unavailable Unavailable DARELL, S AYMAN MD Unavailable Unavailable DARELL, S AYMAN MD Unavailable Unavailable DARELL, S AYMAN MD Unavailable Unavailable DARELL, S AYMAN MD Unavailable Unavailable DARELL, S AYMAN MD Unavailable Unavailable DARELL, S AYMAN MD Unavailable Unavailable DARELL, S AYMAN MD Unavailable Unavailable DARELL, S AYMAN MD Unavailable Unavailable DARELL, S AYMAN MD Unavailable Unavailable DARELL, S AYMAN MD Unavailable Unavailable DARELL, S AYMAN MD Unavailable Unavailable DARELL, S AYMAN MD Unavailable Unavailable DARELL, S AYMAN MD Unavailable Unavailable DARELL, S AYMAN MD Unavailable Unavailable DARELL, S AYMAN MD Unavailable Unavailable DARELL, S AYMAN MD Unavailable Unavailable DARELL, S AYMAN MD Unavailable Unavailable DARELL, S AYMAN MD Unavailable Unavailable DARELL, S AYMAN MD Unavailable Unavailable DARELL, S AYMAN MD Unavailable Unavailable DARELL, S AYMAN MD Unavailable Unavailable DARELL, S AYMAN MD Unavailable Unavailable DARELL, S AYMAN MD Unavailable Unavailable DARELL, S AYMAN MD Unavailable Unavailable DARELL, S AYMAN MD Unavailable Unavailable DARELL, S AYMAN MD Unavailable Unavailable DARELL, S AYMAN MD Unavailable Unavailable DARELL, S AYMAN MD Unavailable Unavailable DARELL, S AYMAN MD Unavailable Unavailable DARELL, S AYAILEEN VICENTE Unavailable Unavailable DARELL, S AYAILEEN VICENTE Unavailable Unavailable DARELL, S AYAILEEN VICENTE Unavailable Unavailable DARELL, S ALEJANDRO VICENTE Unavailable Unavailable DARELL, S AYAILEEN VICENTE Unavailable Unavailable DARELL, S AYAILEEN VICENTE Unavailable Unavailable DARELL, S AYAILEEN VICENTE Unavailable Unavailable DARELL, S AYAILEEN VICENTE Unavailable Unavailable DARELL, S ALEJANDRO VICENTE Unavailable Unavailable DARELL, S ALEJANDRO VICENTE Unavailable Unavailable DARELL, S ALEJANDRO VICENTE Unavailable Unavailable DARELL, S AYAILEEN VICENTE Unavailable Unavailable DARELL, S AYAILEEN VICENTE Unavailable Unavailable DARELL, S AYAILEEN VICENTE Unavailable Unavailable DARELL, S ALEJANDRO VICENTE Unavailable Unavailable DARELL, S ALEJANDRO VICENTE Unavailable Unavailable DARELL, S ALEJANDRO VICENTE Unavailable Unavailable DARELL, S ALEJANDRO VICENTE Unavailable Unavailable DARELL, S ALEJANDRO VICENTE Unavailable Unavailable DARELL S ALEJANDRO VICENTE Unavailable Unavailable DARELL, S ALEJANDRO VICENTE Unavailable Unavailable DARELL, S ALEJANDRO VICENTE Unavailable Unavailable DARELL, S ALEJANDRO VICENTE Unavailable Unavailable DARELL, S ALEJANDRO VICENTE Unavailable Unavailable DARELL, S ALEJANDRO VICENTE Unavailable Unavailable DARELL S ALEJANDRO VICENTE Unavailable Unavailable DARELL, S ALEJANDRO VICENTE Unavailable Unavailable DARELL, S ALEJANDRO VICENTE Unavailable Unavailable DARELL, S ALEJANDRO VICENTE Unavailable Unavailable DARELL, S ALEJANDRO VICENTE Unavailable Unavailable DARELL, S ALEJANDRO VICENTE Unavailable Unavailable DARELLMarian CEJA MD Unavailable Unavailable DARELL, S ALEJANDRO VICENTE Unavailable Unavailable DARELL, S ALEJANDRO VICENTE Unavailable Unavailable DARELL, S AYAILEEN VICENTE Unavailable Unavailable DARELL, S ALEJANDRO VICENTE Unavailable Unavailable DARELL, S AYAILEEN VICENTE Unavailable Unavailable DARELL, S ALEJANDRO VICENTE Unavailable Unavailable DARELL, S ALEJANDRO VICENTE Unavailable Unavailable NARAPUREDDY, LIZ Unavailable Unavailable HAMILTON, L MICHELLE PA Unavailable Unavailable HAMILTON, L MICHELLE PA Unavailable Unavailable HAMILTON, L MICHELLE PA Unavailable Unavailable HAMILTON, L MICHELLE PA Unavailable Unavailable HAMITLON, L MICHELLE PA Unavailable Unavailable HAMILTON, L MICHELLE PA Unavailable Unavailable HAMILTON, L MICHELLE PA Unavailable Unavailable HAMILTON, L MICHELLE PA Unavailable Unavailable HAMILTON, L MICHELLE PA Unavailable Unavailable HAMILTON, L IMCHELLE PA Unavailable Unavailable HAMILTON, L MICHELLE PA Unavailable Unavailable HAMILTON, L MICHELLE PA Unavailable Unavailable HAMILTON, L MICHELLE PA Unavailable Unavailable HAMILTON, L MICHELLE PA Unavailable Unavailable HAMILTON, L MICHELLE PA Unavailable Unavailable HAMILTON, L MICHELLE PA Unavailable Unavailable HAMILTON, L MICHELLE PA Unavailable Unavailable HAMILTON, L MICHELLE PA Unavailable Unavailable HAMILTON, L MICHELLE PA Unavailable Unavailable HAMILTON, L MICHELLE PA Unavailable Unavailable HAMILTON, L MICHELLE PA Unavailable Unavailable HAMILTON, L MICHELLE PA Unavailable Unavailable DARELLMarian CEJA MD Unavailable Unavailable DARELL, S ALEJANDRO VICENTE Unavailable Unavailable DARELL, S ALEJANDRO VICENTE Unavailable Unavailable DARELL S AYAILEEN VICENTE Unavailable Unavailable DARELL, S AYAILEEN VICENTE Unavailable Unavailable DARELL, S ALEJANDRO VICENTE Unavailable Unavailable DARELL, S ALEJANDRO VICENTE Unavailable Unavailable DARELL, S ALEJANDRO VICENTE Unavailable Unavailable DARELL, S ALEJANDRO VICENTE Unavailable Unavailable DARELL, S ALEJANDRO VICENTE Unavailable Unavailable DARELL, S ALEJANDRO VICENTE Unavailable Unavailable DARELL, S ALEJANDRO VICENTE Unavailable Unavailable DARELL, S ALEJANDRO VICENTE Unavailable Unavailable DARELL, S ALEJANDRO VICENTE Unavailable Unavailable DARELL, S ALEJANDRO VICENTE Unavailable Unavailable DARELL, S ALEJANDRO VICENTE Unavailable Unavailable DARELL, S ALEJANDRO VICENTE Unavailable Unavailable DARELL, S ALEJANDRO VICENTE Unavailable Unavailable DARELL, S ALEJANDRO VICENTE Unavailable Unavailable DARELL, S ALEJANDRO VICENTE Unavailable Unavailable DARELL, S ALEJANDRO VICENTE Unavailable Unavailable DARELL, S ALEJANDRO VICENTE Unavailable Unavailable DARELL, S ALEJANDRO VICENTE Unavailable Unavailable DARELL, S ALEJANDRO VICENTE Unavailable Unavailable DARELL, S ALEJANDRO VICENTE Unavailable Unavailable DARELL, S ALEJANDRO VICENTE Unavailable Unavailable DARELL, S ALEJANDRO VICENTE Unavailable Unavailable DARELL, S AYAILEEN VICENTE Unavailable Unavailable DARELL, S ALEJANDRO VICENTE Unavailable Unavailable DARELL, S ALEJANDRO VICENTE Unavailable Unavailable DARELL, S ALEJANDRO VICENTE Unavailable Unavailable DARELL, S AYAILEEN VICENTE Unavailable Unavailable DARELL, S AYAILEEN VICENTE Unavailable Unavailable DARELL, S AYAILEEN VICENTE Unavailable Unavailable DARELL, S ALEJANDRO VICENTE Unavailable Unavailable DARELL, S ALEJANDRO VICENTE Unavailable Unavailable DARELL, S AYMAN MD Unavailable Unavailable DARELL, S AYMAN MD Unavailable Unavailable DARELL, S AYMAN MD Unavailable Unavailable DARELL, S AYMAN MD Unavailable Unavailable DARELL, S AYMAN MD Unavailable Unavailable DARELL, S AYMAN MD Unavailable Unavailable DARELL, S AYMAN MD Unavailable Unavailable DARELL, S AYMAN MD Unavailable Unavailable DARELL, S AYMAN MD Unavailable Unavailable DARELL, S AYMAN MD Unavailable Unavailable DARELL, S AYMAN MD Unavailable Unavailable DARELL, S AYMAN MD Unavailable Unavailable DARELL, S AYMAN MD Unavailable Unavailable DARELL, S AYMAN MD Unavailable Unavailable DARELL, S AYMAN MD Unavailable Unavailable DARELL, S AYMAN MD Unavailable Unavailable DARELL, S AYMAN MD Unavailable Unavailable DARELL, S AYMAN MD Unavailable Unavailable DARELL, S AYMAN MD Unavailable Unavailable DARELL, S AYMAN MD Unavailable Unavailable DARELL, S AYMAN MD Unavailable Unavailable DARELL, S AYMAN MD Unavailable Unavailable DARELL, S AYMAN MD Unavailable Unavailable DARELL, S AYMAN MD Unavailable Unavailable DARELL, S AYMAN MD Unavailable Unavailable DARELL, S AYMAN MD Unavailable Unavailable DARELL, S AYMAN MD Unavailable Unavailable DARELL, S AYMAN MD Unavailable Unavailable DARELL, S AYMAN MD Unavailable Unavailable DARELL, S AYMAN MD Unavailable Unavailable DARELL, S AYMAN MD Unavailable Unavailable DARELL, S AYMAN MD Unavailable Unavailable DARELL, S AYMAN MD Unavailable Unavailable DARELL, S AYMAN MD Unavailable Unavailable DARELL, S AYMAN MD Unavailable Unavailable DARELL, S AYMAN MD Unavailable Unavailable DARELL, S AYMAN MD Unavailable Unavailable DARELL, S AYMAN MD Unavailable Unavailable DARELL, S AYMAN MD Unavailable Unavailable DARELL, S AYMAN MD Unavailable Unavailable DARELL, S AYMAN MD Unavailable Unavailable DARELL, S AYMAN MD Unavailable Unavailable DARELL, S AYMAN MD Unavailable Unavailable DARELL, S AYMAN MD Unavailable Unavailable DARELL, S AYMAN MD Unavailable Unavailable DARELL, S AYMAN MD Unavailable Unavailable DARELL, S AYMAN MD Unavailable Unavailable Marian AIKEN MD Unavailable Unavailable Marian AIKEN MD Unavailable Unavailable Marian AIKEN MD Unavailable Unavailable Marian AIKEN MD Unavailable Unavailable Re-disclosure Warning The records that you are about to access may contain information from federally-assisted alcohol or drug abuse programs. If such information is present, then the following federally mandated warning applies: This information has been disclosed to you from records protected by federal confidentiality rules (42 CFR part 2). The federal rules prohibit you from making any further disclosure of this information unless further disclosure is expressly permitted by the written consent of the person to whom it pertains or as otherwise permitted by 42 CFR part 2. A general authorization for the release of medical or other information is NOT sufficient for this purpose. The Federal rules restrict any use of the information to criminally investigate or prosecute any alcohol or drug abuse patient.The records that you are about to access may contain highly sensitive health information, the redisclosure of which is protected by Article 27-F of the [facility] Public Health law. If you continue you may have access to information: Regarding HIV / AIDS; Provided by facilities licensed or operated by the [facility] [facility]; or Provided by the [facility] Office for People With Developmental Disabilities. If such information is present, then the following [facility] mandated warning applies: This information has been disclosed to you from confidential records which are protected by state law. State law prohibits you from making any further disclosure of this information without the specific written consent of the person to whom it pertains, or as otherwise permitted by law. Any unauthorized further disclosure in violation of state law may result in a fine or fdc sentence or both. A general authorization for the release of medical or other information is NOT sufficient authorization for further disc losure. Allergies and Adverse Reactions Type Description Substance Reaction Status Data Source(s ) Propensity to adverse reactions ACETAMINOPHEN Acetaminophen Active [facility] Propensity to adverse reactions TETRACYCLINES & RELATED Tetracyc lines & Related Active [facility] Propensity to adverse reactions TETANUS TOXOIDS Tetanus Toxoids Active [facility] Propensity to adverse reactions BACITRACIN-POLYMYXIN B Bacitraci n-Polymyxin B Rash Low Active [facility] Low Propensity to adverse reactions CELECOXIB celecoxib Rash Low Acti ve [facility] Low Encounters Encounter Providers Location Date Indications Data Source(s ) Preadmit Attender: Charles DEE 01/25/2021 03:44:00 PM [facility] Outpatient Attender: Alesha Quinonez PA-C 01/16/2021 02:00 :00 PM [facility] Outpatient Attender: Soumya Ha [facility] Main Office 12/05/2020 01:00:00 PM EDT [facility] ([facility]) Outpatient Attender: Alesha Quinonez PA-C 06/07/2020 11:30 :00 AM [facility] Admission cancelled. Disregard status an d admitted date. Outpatient Attender: Alesha Stoneferrer: Alesha Quinonez PA-C 02/20/2020 11:10:00 AM [facility] - 02/20/2020 11:10:00 AM [facility] Outpatient [address] [facility] [id number] 02/02/2020 12:00:00 AM EDT eCW1 ([facility]) Outpatient Attender: Rosendo Bazzi MDReferrer: LIZ LEI 02/02/2020 12:00:00 AM EDT [facility] ( [facility]) 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 Outpatient Attender: ALEJANDRO AIKEN MDReferrer: Bonnie Quinonez PA-C EMERGENCY ROOM-LAB REF 12/28/2019 07:27:00 AM EDT - 12/28/2019 07:27:00 AM [facility] Admission cancelled. Disregard status an d admitted date. Outpatient Attender: Alesha Quinonez PA-C 12/15/2019 04:30 :00 PM [facility] Outpatient Attender: Alesha DEE-CReferrer: Desiree DEE EMERGENCY ROOM-LAB 12/02/2019 02:18:00 PM EDT - 12/02/2019 02:18:00 PM [facility] Outpatient Attender: APOLINAR VILLEDA PAReferrer: Tyshawn DEE EMERGENCY ROOM-LABOTHPROV 12/02/2019 02:10:00 PM EDT - 12/02/2019 02:10:00 PM [facility] Outpatient Attender: Alesha Quinonez PA-C 11/25/2019 03:00 :00 PM [facility] Outpatient Attender: Rosendo Bazzi MDConsultant: Leatha Rivera NP 11/08/2019 02:26:00 PM EDT - 11/08/2019 03:26:00 PM T [facility] Patient discharged. Emergency Attender: MICHELLE Bernsteiner: Tyshawn DEE EMERGENCY ROOM-ER 05/25/2019 11:14:00 AM EST - 05/25/2019 03:31:00 PM [facility] Patient discharged. Immunizations Vaccine Date Status Description Data Source(s) COVID-19 VACCINE Moderna 07/02/2020 12:00:00 AM EDT completed [facility] Vaccine Series Complete: YESThis Data wa s Submitted to [facility] Via [facility]. COVID-19 VACCINE, MRNA-1273, LNP-S (MODERNA)/PF 07/02/2020 1 2:00:00 AM EDT completed [facility] COVID-19 VACCINE, MRNA-1273, LNP-S (MODERNA)/PF 06/07/2020 1 2:00:00 AM EST completed [facility] Medications Medication Brand Name Start Date Product Form Dose Route Admi nistrative Instructions Pharmacy Instructions Status Indications Reaction Description Data Source(s) Nystatin 144909 UNT/ML Topical Cream Nystatin 12/05/2020 12:00:00 AM EDT active [facility] ([facility]) ciclopirox 80 MG/ML Topical Solution Ciclopirox 12/05/2020 12:00:00 A M EDT active [facility] ([facility]) 90 mcg/actuation 06/15/2020 12:00:00 AM EST aerosol powdr breath activated 3 INHALE TWO PUFFS BY MOUTH TWICE A DAY INHALE TWO PUFFS BY MO UTH TWICE A DAY SOLD: 06/18/2020 [facility] 20 mg 04/24/2020 12:00:00 AM EST tablet 10 TAKE TWO TABLETS BY MOUTH EVERY DAY IN THE MORNING WITH FOOD FOR 5 DAYS TAKE TWO TABLETS BY MOUTH EVERY DAY IN THE MORNING WITH FOOD FOR 5 DAYS SOLD: 04/24/2020 [facility] 875-125 mg 04/23/2020 12:00:00 AM EST tablet 14 TAKE ONE TABLET BY MOUTH EVERY 12 HOURS TAKE ONE TABLET BY MOUTH EVERY 12 HOURS SOLD: 04/24/2020 [facility] 20 mg 02/20/2020 12:00:00 AM EST tablet 14 TAKE TWO TABLETS BY MOUTH EVERY DAY IN THE MORNING WITH FOOD FOR 7 DAYS TAKE TWO TABLETS BY MOUTH EVERY DAY IN THE MORNING WITH FOOD FOR 7 DAYS SOLD: 02/21/2020 [facility] sodium chloride 0.9% (NS) infusion 9287-7775-33 01/02/2020 03:00:00 PM EDT 75 mL/h Intravenous active at 75 mL /hr, 75 mL/hr, Intravenous, Continuous, Starting Thu01/02/20 at 1500, For 2 hours, Post-op [facility] Medication administered onsite normal saline flush 0.9 % injection 3 mL [id number] 01/02/2020 02:00:00 PM EDT 3 mL Intravenous active 3 mL , Intravenous, Every 8 hours (scheduled), First dose on Thu01/02/20 at 1400, Pre-op
Rapid push positive pressure flushing shall be performed with a 10 cc normal saline syringe to check the PATENCY of a PIV site prior to any infusion therapy initiation unless resistance is met.
[facility] Medication administered onsite normal saline flush 0.9 % injection 3 mL [id number] 01/02/2020 02:00:00 PM EDT 3 mL Intravenous active 3 mL , Intravenous, PROTOCOL, First dose on Thu01/02/20 at 1400, Pre-op
flush per protocol, D/C Main IV fluid if appropriate
[facility] Medication administered onsite iopamidol (ISOVUE-370) 76 % 77701 01/02/2020 01:47:00 PM EDT active As needed, Starting 01/02/20 at 1347, Intra-Procedu re [facility] Medication administered onsite 1 ML heparin sodium, porcine 1000 UNT/ML Injection hep ara (porcine) injection heparin (porcine) injection 01/02/2020 01:41:31 PM EDT active As needed, Starting 01/02/20 at 1341, Intra-Procedure [facility] Medication administered onsite 4 ML Verapamil hydrochloride 2.5 MG/ML Injection verap akin (ISOPTIN) injection verapamil (ISOPTIN) injection 01/02/2020 01:41:22 PM EDT active As needed, Starting 01/02/20 at 1341, Intra-Procedure [facility] Medication administered onsite lidocaine 1 % injection 2257-4084-71 01/02/2020 01:40:38 PM EDT active As needed, Starting 01/02/20 at 1340, Intra-Procedure [facility] Medication administered onsite fentaNYL Citrate (PF) (SUBLIMAZE) injection 3456-9416-07 01/02/2020 01:30:55 PM EDT active As neede d, Starting Thu01/02/20 at 1330, Intra-Procedure [facility] Medication administered onsite 2 ML Midazolam 1 MG/ML Injection midazolam (VERSED) in jection midazolam (VERSED) injection 01/02/2020 01:30:41 PM EDT active As needed, Starting Thu01/02/20 at 1330, Intra-Procedure [facility] Medication administered onsite sodium chloride 0.9% (NS) infusion 1448-5170-03 01/02/2020 01:00:00 PM EDT 100 mL/h Intravenous active at 100 m L/hr, 100 mL/hr, Intravenous, Continuous, Starting Thu01/02/20 at 1300, Pre-op
Start two hours prior to scheduled start time
[facility] Medication administered onsite clopidogrel 75 MG Oral Tablet [Plavix] Plavix 12/14/2019 12:00:00 AM EDT ORAL completed [facility] ([facility]) Levetiracetam 1000 MG Oral Tablet levETIRAcetam 1000 M G Oral Tablet (KEPPRA) levETIRAcetam 1000 MG Oral Tablet (KEPPRA) 06/17/2019 12:00:00 AM EST Oral active Take 0.5 tablet s by mouth Two Times Daily for 7 days, THEN 1 tablet Two Times Daily.. [facility] clopidogrel 75 MG Oral Tablet clopidogrel (PLAVIX) 75 MG tablet clopidogrel (PLAVIX) 75 MG tablet 75 mg Oral aborted Take 75 mg by mouth daily 5 tabs pre procedure [facility] Insurance Providers Payer name Policy type / Coverage type Policy ID Covered libertarian ID Covered libertarian's relationship to potts Policy Potts Plan Information MEDICARE [id number] Christine [id number] U27 MEDICARE [id number] xxxxxxxxxxx [id number] MEDICARE A [id number] Self [id number] U27 Medicare P [id number] S [id number] A UMR [id number] Christine [id number] UMR U [id number] Self [id number] UMR [id number] xxxxxxxxx [id number] MEDICARE PART A -O/P [id number] 18 [id number] UMR -O/P [id number] 18 [id number] UMR -O/P [id number] 18 [id number] ANSI-Commercial [id number] ANSI-Medicare Part B [id number] ANSI-Medicare Part B [id number] ANSI-Commercial [id number] ANSI-Commercial [id number] ANSI-Medicare Part B [id number] ANSI-Commercial [id number] ANSI-Medicare Part B [id number] ANSI-Medicare Part B [id number] ANSI-Commercial [id number] ANSI-Medicare Part B [id number] ANSI-Commercial [id number] ANSI-Commercial [id number] ANSI-Medicare Part B [id number] R O [id number] S [id number] MEDICARE C [id number] S [id number] [id number] [employer] PPO O [id number] S [id number] MEDICARE C [id number] S [id number] A POMCO [id number] SP [id number] MEDICARE [id number] SP [id number] A Sliding Fee Scale P [id number] S [id number] POMCO [id number] SP [id number] UMR [id number] S [id number] Sliding Fee Scale P UNAVAILABLE S UNAVAILABLE [employer] [id number] S [id number] [place]ICARE - [place] [id number] S [id number] R [id number] S [id number] [employer] MED[employer] [id number] S [id number] [place]ICARE [place] [id number] S [id number] R [facility] [id number] SP [id number] MEDICARE [id number] SP [id number] U27 Problems, Conditions, and Diagnoses Code Display Name Description Problem Type Effective Dates Data Source(s) J45.20 Mild intermittent asthma, uncomplicated MILD INTERMITTENT ASTHMA, UNCOMPLICATED Diagnosis 06/07/2020 11:30:00 AM [facility] l R06.02 Shortness of breath SHORTNESS OF BREATH Diagnosis 1 04/21/2019 11:10:00 AM [facility] Z13.220 Encounter for screening for lipoid disor ders ENCOUNTER FOR SCREENING FOR LIPOID DISOR Diagnosis 02/20/2020 11:10:00 AM [facility] l R55 Syncope and collapse Syncope and collapse Diagnosis 01/02/2020 11:21:00 AM EDT [facility] R94.39 Abnormal result of other cardiovascular function study Abnormal result of other cardiovascular Diagnosis 01/02/2020 11:21:00 AM EDT [facility] Z01.818 Encounter for other preprocedural examin ation ENCOUNTER FOR OTHER PREPROCEDURAL EXAMIN Diagnosis 12/28/2019 [facility] Venous insufficiency (chronic) (peripher al) VENOUS INSUFFICIENCY (CHRONIC) (PERIPHERAL) Diagnosis 12/15/2019 04:30:00 [facility] Z11.59 Encounter for screening for other viral diseases ENCOUNTER FOR SCREENING FOR OTHER VIRAL DISEASES Diagnosis 12/15/2019 04:30:00 PM [facility] G89.29 Other chronic pain OTHER CHRONIC PAIN Diagnosis 06/2019 04:30:00 PM [facility] M54.5 Low back pain LOW BACK PAIN Diagnosis 12/15/2019 04:30:00 PM [facility] E55.9 Vitamin D deficiency, unspecified VITAMIN D DEFI CIENCY, UNSPECIFIED Diagnosis 12/02/2019 02:10:00 PM [facility] Z13.29 Encounter for screening for other suspec guillermo endocrine disorder ENCOUNTER FOR SCREENING FOR OTH SUSPECTED ENDOCRIN Diagnosis 12/02/2019 02:10:00 PM [facility] E78.49 OTHER HYPERLIPIDEMIA OTHER HYPERLIPIDEMIA Diagnosis 12/02/2019 02:10:00 PM [facility] Surgeries/Procedures Procedure Description Date Indications Data Source(s) DESTRUCTION PREMALIGNANT LESION 1ST 12/05/2020 12:00:0 0 AM EDT [facility] ([facility]) DESTRUCTION PREMALIGNANT LESION 2-14 EA 12/05/2020 12: 00:00 AM [facility] OFFICE OUTPATIENT VISIT 25 MINUTES 12/05/2020 12:00:00 AM [facility]) CARDIAC CATHETERIZATION <td>CARDIAC CATHETERIZATION</td><td>Routine</td><td>01/02/2020 1:46 PM EDT</td><td> Abnormal result of other cardiovascular function study Syncope</td><td> </td> 01/02/2020 05:46:50 PM EDT SyncopeAbnormal result of other cardiovascular functio n study [facility] Syncope Abnormal result of other cardiovascular function study ECG ROUTINE ECG W/LEAST 12 LDS TRCG ONLY W/O I&R <td>E CG 12- LEAD</td><td>Routine</td><td>01/02/2020 12:19 PM EDT</td><td></td><td></td> 01/02/2020 04:19:38 PM EDT [facility] BLOOD COUNT COMPLETE AUTOMATED <td>CBC</td><td>Routine </td><td>01/02/2020 12:00 PM EDT</td><td></td><td> </td> 01/02/2020 04:00:00 PM EDT [facility] Left Heart Cath W/Wo LV & Coronary Angiography 020 12:00:00 AM EDT [facility] ([facility]) LAB SCAN <td>LAB SCAN</td><td></td><td>12/28/2019 </td><td></td><td></td> 12/28/2019 12:00:00 AM EDT [facility] Results ID Date Data Source [id number] 02/22/2020 03:06:00 PM EST [facility] Name Value Range Interpretation Code Description Data Oksana rce(s) Supporting Document(s) SARS-CoV-2 Antibody, IgM Negative Negative [facility] This sample does not contain detectable SARS-CoV-2 IgM antibodies.This negative result does not rule out SARS-CoV-2 infection.Correlation with epidemiologic risk factors and other clinical andlaboratory findings is recommended. Serologic results should not beused as the sole basis to diagnose or exclude recent [id number]. ID Date Data Source [id number] 02/22/2020 03:06:00 PM EST [facility] Name Value Range Interpretation Code Description Data Oksana rce(s) Supporting Document(s) SARS-CoV-2 Antibody, IgG Negative [facility] See [employer] SARS-CoV-2 Ab, IgG ID Date Data Source [id number] 02/22/2020 03:06:00 PM EST [facility] Name Value Range Interpretation Code Description Data Oksana rce(s) Supporting Document(s) [employer] SARS-CoV-2 Ab, IgG Negative Negative [facility] This sample does not contain detectable SARS-CoV-2 IgG antibodies.This negative result does not rule out SARS-CoV-2 infection.Correlation with epidemiologic risk factors and other clinical andlaboratory findings is recommended. Serologic results should not beused as the sole basis to diagnose or exclude recent [id number].This assay was performed using the [employer] Liaison(R)SARS-CoV-2 S1/S2 IgG assay. ID Date Data Source [id number] 02/22/2020 03:06:00 PM EST [facility] Name Value Range Interpretation Code Description Data Oksana rce(s) Supporting Document(s) SARS-CoV-2 Antibody, IgA Negative Negative [facility] This sample does not contain detectable SARS-CoV-2 IgA antibodies.This negative result does not rule out SARS-CoV-2 infection.Correlation with epidemiologic risk factors and other clinical andlaboratory findings is recommended. Serologic results should not beused as the sole basis to diagnose or exclude recent [id number]. ID Date Data Source [id number] 02/20/2020 12:13:00 PM EST [facility] DATE OF EXAMINATION: 02/20/2020 11:54 EST CHEST 2 VIEWS HISTORY: Shortness of breath TECHNIQUE: PA and lateral radiographs of the chest COMPARISON: 05/25/2019 FINDINGS: No evidence of focal consolidation, pneumothorax or large pleural effusion.Lungs are clear. Mediastinal structures are unremarkable. No aggressive osseouslesions. IMPRESSION: No focal consolidation. Electronically signed in PS360 by: Stephen Stern M.D. 02/20/2020 12:08 EST Name Value Range Interpretation Code Description Data Oksana rce(s) Supporting Document(s) ID Date Data Source PAP REQUEST FOR SERVICE 01/31/2020 10:52:39 AM EDT eCW1 ([facility]) Name Value Range Interpretation Code Description Data Oksana rce(s) Supporting Document(s) Laboratory studies (set) PAP REQUEST FOR SERVICE eCW1 ([facility]) ID Date Data Source [id number] 01/31/2020 09:05:11 AM EDT eCW1 ([facility]) Name Value Range Interpretation Code Description Data Oksana rce(s) Supporting Document(s) 4.3 CA 125 eCW1 ([facility]) ID Date Data Source [id number] 01/02/2020 01:54:28 PM EDT [facility] Name Value Range Interpretation Code Description Data Oksana rce(s) Supporting Document(s) &PDF [facility] LWPATu3oRmIDQlPq03/MHLweQBDxt0ZrCTbyJUo5OZlpLPBwY4IdoKpxZQGUX3kIKygEUZKAAFGQYL1l oRX [file] UGKgBGupAFSZHo2D ID Date Data Source [id number] 01/02/2020 12:39:28 PM EDT [facility] Name Value Range Interpretation Code Description Data Oksana rce(s) Supporting Document(s) EKG [facility] GRUDAm3cVkZKPlTgq6DjUiDmOXLrRB4tgpg6Y9O4iLLoK0EvmQBgu0erP4WgF4GjFJWqNBDNRH6SkGVc jb2 [file] RDoyMDIwMDkyMTEyMzkpIAogICAgICAgICAgICAvVG a2vCOhHD0HN7BgXNHcFXGFKSVfweHiKv8gXPHDL8hCYjhwG4OETLvpWBFiOYOkIYz9SAKcE3QibcMpxU FwNNFAWLjdLwvlOLVmsJ4hlCjaD5BsBFQ8e7UwNV6XA6UtHXAbFNAEAVP2d8ZvPICbswlnohvtMhCtSK AzSYFqJJIqFF1Hyk5oaHKzwzNaQWCJCFlbUanoSB4n xHmpytgeW7OynLFsSJZ+GgRaZX9wwm4+DiEnQBHmHib5LLVdNZtmWQUsAQBvIMFmJ6dpQFAhWuZwLRQr WlTzLG4Ou8AdtRYuSz5figUdFtqJfWZoXbozHPAiQIDlWPCcEdHMGAQlHNHwTTWeTIQ9XLUbRJEmYAms SRHrLXO7HqrwFQXgUSBhIZ3iUnHpFIZxFMF2RAQjXO KbPGGwnaSMRDHpHLO0TbMmZBMpPMAjQQLuOJbsUTGpTAZkWYJaLKI6RWA7VLObWmTmAHJyPUDcGYOcDJ AmYSIihpCDVITaCBAzQZW8KERwEMDaNVDjXGxnLWLsEFJkXVbfRKPnMMQcKL6mVoMhJCItIXTtGMnsWR AwMDAgbiAKMDAwMDAwMDQwOSAwMDAwMCBuIAowMDAw NXKuJFLwHDXxYWKuKO7qFcItQPHeVKK5PNVzFZFbWJApxuGWAMXkDUNoLZu8QJOpKMAtCNVxCZasIGPu JPNdNUG2UMTyFPCnCG9fBjKlBNOjDMT9WbSoYUDuILWkeiRFHPVkTBOgBSN2GaRnGEMeIAQiFNgbMLXp EFRpGYohBNHcATRnIJ6qXaOoJKQeVCVhSBpcVANnFE LkmqNKXMYhLCHaVAIpCpLkUUUhGBEuMGrmNLEpQPE9HVZ2KPAlSRUvAB7hTwRbCICfPOH1MQitRPVaGS LsrjLMQWLqIXJqQReoCASrDRInCXVaINtnHXGuCIFzAZE0PTQrDXPyCL3qOtGzDIQtRAXwYWRqVeY8Ve LsCsQXcYPtsWaztpt6VGjvB5j3SOUfMYcsZQ8zeeLf MQEvYqlvBw1tyJD2FLLoYrvIZs0Ss6LjnhG6imDpGwM3DiK2MaKqFY9T ID Date Data Source [id number] 01/02/2020 12:26:41 PM EDT [facility] INFORMATIONPatient MRN Name Date of Age Gend*PT [id number] Woodrow Urban 1945 74 years F HOPPT Location Admission Date/Time Visit ID Attending [id number] 01/02/20 1121 --- Alejandro Aiken MD([id number]) EPI ID CSN Admitting Provider [id number] Alejandro Aiken MD([id number])Updated H&PPlease see the scanned/dictated outpatient note.I have reviewed the note, clinical history and physical exam findings. Therehave been no significant changes.Plan as outlined in the outpatient note.Risk/benifit/alternative of cardiac catheterization was discussed withpatient/family. Risks included, but not limited to; AR, CVA, , renalimpairment, vascular complication, and need for emergency surgery were discussedand accepted by patient.Alejandro Aiken MD, [facility]AI[facility] Organization Development Consultant Name Value Range Interpretation Code Description Data Oksana rce(s) Supporting Document(s) ID Date Data Source [id number] 01/02/2020 01:31:37 PM EDT [facility] Name Value Range Interpretation Code Description Data Oksana rce(s) Supporting Document(s) WBC 9.3 10*3/uL (4.1-11.0) [facility] RBC 4.68 10*6/uL (4.00-5.40) [facility] HGB 14.2 g/dL (12.0-16.0) [facility] HCT 43.9 % (36.0-47.0) [facility] [place] [address] [place] [address] MCV 93.8 fL (80.0-95.0) [facility] MCH 30.4 pg (27.0-32.0) [facility] MCHC 32.4 g/dL (32.0-36.0) [facility] RDW 14.1 % (10.5-14.5) [facility] PLT 230 10*3/uL (150-450) [facility]a MARVIN Y MPV 9.1 fL (7.1-10.7) Lab [facility] MARYELLEN ID Date Data Source [id number] 12/29/2019 02:05:00 PM EDT [facility] Name Value Range Interpretation Code Description Data Oksana rce(s) Supporting Document(s) SARS-CoV-2, NIXON Not Detected Not Detected [facility] This nucleic acid amplification test was developed and its performancecharacteristics determined by [facility]. Nucleic acidamplification tests include PCR and TMA. This test has not been FDAcleared or approved. This test has been authorized by FDA under anEmergency Use Authorization (EUA). This test is only authorized forthe duration of time the declaration that circumstances existjustifying the authorization of the emergency use of in vitrodiagnostic tests for detection of SARS-CoV-2 virus and/or diagnosisof COVID-19 infection under section 564(b)(1) of the Act, 21 U.S.C.360bbb-3(b) (1), unless the authorization is terminated or revokedsooner.When diagnostic testing is negative, the possibility of a falsenegative result should be considered in the context of a patient'srecent exposures and the presence of clinical signs and symptomsconsistent with COVID- 19. An individual without symptoms of COVID-19and who is not shedding SARS-CoV-2 virus would expect to have anegative (not detected) result in this assay. ID Date Data Source [id number] 12/28/2019 08:00:00 AM EDT [facility] Name Value Range Interpretation Code Description Data Oksana rce(s) Supporting Document(s) SARS coronavirus 2 RNA [facility] This lab was ordered by [facility] a nd reported by [facility]. ID Date Data Source [id number] 12/29/2019 02:05:00 PM EDT [facility] Name Value Range Interpretation Code Description Data Oksana rce(s) Supporting Document(s) Inpatient [facility] Received ID Date Data Source [id number] 12/29/2019 02:06:00 PM EDT [facility] Name Value Range Interpretation Code Description Data Oksana rce(s) Supporting Document(s) SARS COV2 Not Detected Not Detected [facility] This nucleic acid amplification test was developed and itsperformance characteristics determined by [facility]. Nucleic acid amplification tests include PCRand TMA. This test has not been FDA cleared or approved.This test has been authorized by FDA under an Emergency UseAuthorization (EUA). This test is only authorized forthe duration of time the declaration that circumstancesexist justifying the authorization of the emergency use ofin vitro diagnostic tests for detection of SARS-CoV-2 virusand/or diagnosis of COVID-19 infection under [id number](b)(1) of the Act, 21 U.S.C. 360bbb-3(b) (1), unless theauthorization is terminated or revoked sooner.When diagnostic testing is negative, the possibility of afalse negative result should be considered in the contextof a patient's recent exposures and the presence ofclinical signs and symptoms consistent with COVID-19. Anindividual without symptoms of COVID-19 and who is notshedding SARS-CoV-2 virus would expect to have a negative(not detected) result in this assay. ID Date Data Source [id number] 12/03/2019 08:06:00 AM EDT [facility] l Name Value Range Interpretation Code Description Data Oksana rce(s) Supporting Document(s) VITAMIN D, 25-HYDROXY 28.2 ng/mL 30.0-100.0 [facility] Vitamin D deficiency has been defined by the [place] of[employer] and an Endocrine Society practice guideline as alevel of serum 25-OH vitamin D less than 20 ng/mL (1,2).The Endocrine Society went on to further define vitamin Dinsufficiency as a level between 21 and 29 ng/mL (2).1. IOM ([place] of [employer]). 2010. Dietary reference intakes for calcium and D. [place]: The National Academies Press.2. Kristie MF, Gaby NC, Ilia SCHMIDT, et al. Evaluation, treatment, and prevention of vitamin D deficiency: an Endocrine Society clinical practice guideline. JCEM. 2010; 96(7):1911- 30.Performed at: - [facility] [address] [id number] Director: Radha Guadalupe MD, Phone: [phone] ID Date Data Source [id number] 12/03/2019 08:06:00 AM EDT [facility] Name Value Range Interpretation Code Description Data Oksana rce(s) Supporting Document(s) Vitamin D, 25-Hydroxy 28.2 ng/mL 30.0-100.0 Below low normal [facility] Vitamin D deficiency has been defined by the [place] [employer] and an Endocrine Society practice guideline as alevel of serum 25-OH vitamin D less than 20 ng/mL (1,2).The Endocrine Society went on to further define vitamin Dinsufficiency as a level between 21 and 29 ng/mL (2).1. IOM ([place] [employer]). 2010. Dietary reference intakes for calcium and D. [place]: The National Academies Press.2. Kristie MF, Gaby VILLATORO, Ilia SCHMIDT, et al. Evaluation, treatment, and prevention of vitamin D deficiency: an Endocrine Society clinical practice guideline. JCEM. 2010; 96(7):1911-30. ID Date Data Source [id number] 12/02/2019 03:41:00 PM EDT [facility] l Name Value Range Interpretation Code Description [facility] Supporting Document(s) GLUCOSE 89 mg/dL 74-106 [facility] BLOOD UREA NITROGEN 16 mg/dL 7-18 [facility] ital CREATININE 0.8 mg/dL 0.6-1.0 [facility] SODIUM 141 mmol/L 136-145 [facility] POTASSIUM 4.3 mmol/L 3.5-5.1 [facility] CHLORIDE 104 mmol/L 98-107 [facility] CO2 28 mmol/L 21-32 [facility] CALCIUM 9.0 mg/dL 8.5-10.1 [facility] ANION GAP 9.0 mmol/L 5-12 [facility] GLOMERULAR FILTRATION RATE 71 mL/min [facility] GFR IS CALCULATED IN mL/min/1.73m2 KUNAL L FUNCTION: >90MILDLY DECREASED: 60-89MILDY TO MODERATELY DECREASED: 45-59 MODERATELY TO SEVERELY DECREASED: 30-44SEVERELY DECREASED: 15-29RENAL FAILURE: <15 AST 21 U/L 15-37 [facility] ALT 29 U/L 12-78 [facility] ALKALINE PHOSPHATASE 74 U/L 46-116 [facility] pital TOTAL BILIRUBIN 0.4 mg/dL 0.2-1.0 [facility] TOTAL PROTEIN 6.8 g/dl 6.4-8.2 [facility] ALBUMIN 3.6 gm/dL 3.4-5.0 [facility] ID Date Data Source [id number] 12/02/2019 03:26:00 PM EDT [facility] Name Value Range Interpretation Code Description Data Oksana rce(s) Supporting Document(s) FREE T4 1.07 ng/dL 0.76-1.46 [facility] ID Date Data Source [id number] [facility]2019 [facility] Value Range Interpretation Code Description Data Oksana rce(s) Supporting Document(s) TSH 1.85 uIU/mL 0.36-3.74 [facility] ID Date Data Source [id number] 12/02/2019 02:37:00 PM EDT [facility] Name Value Range Interpretation Code Description Data Oksana rce(s) Supporting Document(s) WHITE BLOOD COUNT 8.4 K/mm3 4.0-10.0 [facility] al RED BLOOD COUNT 4.50 M/mm3 4.00-5.50 [facility] HEMOGLOBIN 13.6 gm/dL 12.0-16.0 [facility] HEMATOCRIT 42.0 % 36.0-48.8 [facility] MEAN CELL VOLUME 93.3 fl 80-96 [facility] MEAN CORPUSCULAR HEMOGLOBIN 30.2 pg 27.0-31.0 [facility] MEAN CORPUSCULAR HGB CONC 32.4 g/dl 32.0-36.0 [facility] RED CELL DISTRIBUTION WIDTH 13.3 % 10.0-14.5 [facility] PLATELET COUNT 236 K/mm3 172-450 [facility] ID Date Data Source [id number] 12/02/2019 03:17:00 PM EDT [facility] l FAX [phone] Name Value Range Interpretation Code Description Data Oksana rce(s) Supporting Document(s) CREATINE PHOSPHOKINASE 118 U/L 26-192 [facility] ospital ID Date Data Source [id number] 12/02/2019 03:17:00 PM EDT [facility] l FAX [phone] Name Value Range Interpretation Code Description Data Oksana rce(s) Supporting Document(s) CHOLESTEROL 235 mg/dL 0-200 H [facility] TRIGLYCERIDES 198 mg/dL 0-150 H [facility] LDL CHOLESTEROL 147 mg/dL 0-100 H [facility] HDL CHOLESTEROL 48 mg/dL 40-60 [facility] CHOL/HDL RATIO 4.9 0.0-5.0 [facility] Procedure Social History Code Duration Value Status Description Data Source(s ) Smoking 02/02/2020 12:00:00 AM EDT Never Smoker completed Never S moker eCW1 ([facility]) Smoking 02/02/2020 12:00:00 AM EDT Never Smoker completed Never S moker eCW1 ([facility]) Alcohol intake 01/02/2020 12:00:00 AM EDT Never completed [facility] Smoking 01/02/2020 12:00:00 AM EDT Never smoker completed Never [facility] Vital Signs ID Date Data Source UNK Name Value Range Interpretation Code Description Data Source(s) Systolic blood pressure 133 mm[Hg] 133 mm[Hg] M EDENT ([facility]) Diastolic blood pressure 62 mm[Hg] 62 mm[Hg] MEDENT ([facility]) Body weight 280.00 [lb_av] 280.00 [lb_av] MEDEN T ([facility]) Body height 67 [in_i] 67 [in_i] MEDENT ([facility]) 5'7" Body mass index (BMI) [Ratio] 43.8 kg/m2 43.8 k g/m2 MEDENT ([facility]) Body weight 281.0 [lb_av] 281.0 [lb_av] eCW1 ([facility]) Body height 65.5 [in_i] 65.5 [in_i] eCW1 ([facility]) Body mass index (BMI) [Ratio] 46.04 kg/m2 46.04 kg/m2 eCW1 ([facility]) Heart rate 72 /min 72 /min eCW1 ([facility]) Respiratory rate 18 /min 18 /min eCW1 ([facility]) Body temperature 98.1 [degF] 98.1 [degF] eCW1 ( [facility]) Systolic blood pressure 137 mm[Hg] 137 mm[Hg] e CW1 ([facility]) Diastolic blood pressure 70 mm[Hg] 70 mm[Hg] eCW1 ([facility]) Body weight 245 [lb_av] 245 [lb_av] eCW1 ([facility]) Body weight 111.13 kg 111.13 kg eCW1 ([facility]) Body height 65.5 [in_i] 65.5 [in_i] eCW1 ([facility]) Body mass index (BMI) [Ratio] 40.15 kg/m2 40.15 kg/m2 eCW1 ([facility]) Systolic blood pressure 148 mm[Hg] 148 mm[Hg] e CW1 ([facility]) Diastolic blood pressure 78 mm[Hg] 78 mm[Hg] eCW1 ([facility]) Heart rate 83 /min 83 /min MEDENT ([facility] Systolic blood pressure 130 mm[Hg] 130 mm[Hg] M EDENT ([facility]) Diastolic blood pressure 68 mm[Hg] 68 mm[Hg] MEDENT ([facility]) Body weight 270.00 [lb_av] 270.00 [lb_av] MEDEN T ([facility]) Body height 66 [in_i] 66 [in_i] MEDENT ([facility] 5'6" Body mass index (BMI) [Ratio] 43.6 kg/m2 43.6 k g/m2 MEDENT ([facility]) Oxygen saturation in Arterial blood by Pulse oximetry 98 % 98 % MEDENT ([facility]) Body surface area Derived from formula 2.27 m2 2.27 m2 MEDENT ([facility]) Systolic blood pressure 154 mm[Hg] 154 mm[Hg] [facility] Diastolic blood pressure 59 mm[Hg] 59 mm[Hg] [facility] Heart rate 82 /min 82 /min [facility] Body temperature 36.72 Sonya 36.72 Sonya [facility] Respiratory rate 18 /min 18 /min [facility] Oxygen saturation in Arterial blood by Pulse oximetry 97 % 97 % [facility] Body height 167.6 cm 167.6 cm [facility] Body weight 124.739 kg 124.739 kg [facility] Body mass index (BMI) [Ratio] 44.39 kg/m2 44.39 kg/m2 [facility] Patient Treatment Plan of Care Planned Activity Planned Date Details Description Data Source (s) Levetiracetam 1000 MG Oral Tablet 06/17/2019 12:00:00 AM [facility] clopidogrel 75 MG Oral Tablet [facility]
[2021-01-25] MEDS ORDERED: LIDOCAINE 1% SDV 30ML VIAL As Ordered ONE (18:58)
[2021-01-25] MEDS ORDERED: ISOVUE-300 61% 50ML VIAL As Ordered ONE (18:58)
[2021-01-25] MEDS ORDERED: AMIODARONE 150MG/3ML INJ (J0282) As Ordered ONE (18:59)
[2021-01-25] MEDS ORDERED: fentaNYL 100 MCG/2 ML INJECTION (J3010) As Ordered ONE (19:06)
[2021-01-25] MEDS ORDERED: LIDOCAINE 2% 100MG/5ML SDV (FOR ANES.) As Ordered ONE (19:06)
[2021-01-25] MEDS ORDERED: propofoL 200 MG/20 ML VIAL As Ordered ONE (19:06)
[2021-01-25] MEDS ORDERED: MIDAZOLAM INJ 2MG/2ML VIAL (J2250 PER 1MG) As Ordered ONE (19:06)
[2021-01-25] MEDS ORDERED: ceFAZolin 2 GM/D5W 50 ML IV BAG (J0690 PER 500MG) As Ordered ONE (19:13)
--- OUTSIDE RECORDS SUMMARY | 2021-01-25 19:13 | CCD ---
Author Author [facility] Organization [facility] Address Unknown Phone Unavailable Care Team Providers Care Lamination Operator Name Role Phone Lobato, Charles PA Unavailable [...] Lobato, Charles PA Unavailable Unavailable Macsherry, Leatha QUILTING MACHINE OPERATOR Unavailable Unavailable Macsherry, Leatha QUILTING MACHINE OPERATOR Unavailable Unavailable Macsherry, Leatha QUILTING MACHINE OPERATOR Unavailable Unavailable Macsherry, Leatha QUILTING MACHINE OPERATOR Unavailable Unavailable Macsherry, Leatha QUILTING MACHINE OPERATOR Unavailable Unavailable Macsherry, Leatha QUILTING MACHINE OPERATOR Unavailable Unavailable Macsherry, Leatha QUILTING MACHINE OPERATOR Unavailable Unavailable Macsherry, Leatha QUILTING MACHINE OPERATOR Unavailable Unavailable Macsherry, Leatha QUILTING MACHINE OPERATOR Unavailable Unavailable Macsherry, Leatha QUILTING MACHINE OPERATOR Unavailable Unavailable Macsherry, Leatha QUILTING MACHINE OPERATOR Unavailable Unavailable Macsherry, Leatha QUILTING MACHINE OPERATOR Unavailable Unavailable Macsherry, Leatha QUILTING MACHINE OPERATOR Unavailable Unavailable Macsherry, Leatha QUILTING MACHINE OPERATOR Unavailable Unavailable Macsherry, Leatha QUILTING MACHINE OPERATOR Unavailable Unavailable Macsherry, Leatha QUILTING MACHINE OPERATOR Unavailable Unavailable Macsherry, Leatha QUILTING MACHINE OPERATOR Unavailable Unavailable Macsherry, Leatha QUILTING MACHINE OPERATOR Unavailable Unavailable Macsherry, Leatha QUILTING MACHINE OPERATOR Unavailable Unavailable Macsherry, Leatha QUILTING MACHINE OPERATOR Unavailable Unavailable Macsherry, Leatha QUILTING MACHINE OPERATOR Unavailable Unavailable Macsherry, Leatha QUILTING MACHINE OPERATOR Unavailable Unavailable Macsherry, Leatha QUILTING MACHINE OPERATOR Unavailable Unavailable Macsherry, Leatha QUILTING MACHINE OPERATOR Unavailable Unavailable Macsherry, Leatha QUILTING MACHINE OPERATOR Unavailable Unavailable Rosendo Bazzi MD Unavailable Unavailable [...] Unavailable Rodriguez, Antonietta Desiree PA Unavailable Unavailable Ordriguez, Antonietta Desiree PA Unavailable Unavailable Rodriguez, Antonietta Desiree PA Unavailable Unavailable Rodriguez, Antonietta Desiree PA Unavailable Unavailable Rodriguez, Antonietta Desiree PA Unavailable Unavailable Rodriguez, Antonietta Desiree PA Unavailable Unavailable Rodriguez, Antonietta Desiree PA Unavailable Unavailable Rodriguez, Antonietta Desiree PA Unavailable Unavailable Rodriguez, Antonietta Desiree PA Unavailable Unavailable Rodriguez, Antonietta Desiree PA Unavailable Unavailable Rodrigeuz, Antonietta Desiree PA Unavailable Unavailable Rodriguez, Antonietta [...] Unavailable CHRISTIANA, J APOLINAR PA Unavailable Unavailable CHRISTIAAN, J APOLINAR PA Unavailable Unavailable CHRISTIANA, J [...] Unavailable Unavailable Rosendo Bazzi MD Unavailable Unavailable Rosnedo Bazzi MD Unavailable Unavailable Rosendo Bazzi MD Unavailable Unavailable Rosendo Bazzi MD Unavailable Unavailable Rosendo Bazzi MD Unavailable Unavailable Rosendo Bazzi MD Unavailable Unavailable Boardman, Sera SENIOR MARKET INTELLIGENCE CONSULTANT Unavailable Unavailable Boardman, Sera SENIOR MARKET INTELLIGENCE CONSULTANT Unavailable Unavailable Boardman, Sera SENIOR MARKET INTELLIGENCE CONSULTANT Unavailable Unavailable Boardman, Sera SENIOR MARKET INTELLIGENCE CONSULTANT Unavailable Unavailable Boardman, Sera SENIOR MARKET INTELLIGENCE CONSULTANT Unavailable Unavailable Boardman, Sera SENIOR MARKET INTELLIGENCE CONSULTANT Unavailable Unavailable Boardman, Sera SENIOR MARKET INTELLIGENCE CONSULTANT Unavailable Unavailable Boardman, Sera SENIOR MARKET INTELLIGENCE CONSULTANT Unavailable Unavailable Boardman, Sera SENIOR MARKET INTELLIGENCE CONSULTANT Unavailable Unavailable Boardman, Sera SENIOR MARKET INTELLIGENCE CONSULTANT Unavailable Unavailable Boardman, Sera SENIOR MARKET INTELLIGENCE CONSULTANT Unavailable Unavailable Boardman, Sera SENIOR MARKET INTELLIGENCE CONSULTANT Unavailable Unavailable Boardman, Sera SENIOR MARKET INTELLIGENCE CONSULTANT Unavailable Unavailable Boardman, Sera SENIOR MARKET INTELLIGENCE CONSULTANT Unavailable Unavailable Boardman, Sera SENIOR MARKET INTELLIGENCE CONSULTANT Unavailable Unavailable Boardman, Sera SENIOR MARKET INTELLIGENCE CONSULTANT Unavailable Unavailable Boardman, Sera SENIOR MARKET INTELLIGENCE CONSULTANT Unavailable Unavailable Boardman, Sera SENIOR MARKET INTELLIGENCE CONSULTANT Unavailable Unavailable Boardman, Sera SENIOR MARKET INTELLIGENCE CONSULTANT Unavailable Unavailable Boardman, Sera SENIOR MARKET INTELLIGENCE CONSULTANT Unavailable Unavailable Boardman, Sera SENIOR MARKET INTELLIGENCE CONSULTANT Unavailable Unavailable Boardman, Sera SENIOR MARKET INTELLIGENCE CONSULTANT Unavailable Unavailable Boardman, Sera SENIOR MARKET INTELLIGENCE CONSULTANT Unavailable Unavailable Boardman, Sera SENIOR MARKET INTELLIGENCE CONSULTANT Unavailable Unavailable Boardman, Sera SENIOR MARKET INTELLIGENCE CONSULTANT Unavailable Unavailable Boardman, Sera SENIOR MARKET INTELLIGENCE CONSULTANT Unavailable Unavailable Boardman, Sera SENIOR MARKET INTELLIGENCE CONSULTANT Unavailable Unavailable Boardman, Sera SENIOR MARKET INTELLIGENCE CONSULTANT Unavailable Unavailable Boardman, Sera SENIOR MARKET INTELLIGENCE CONSULTANT Unavailable Unavailable Boardman, Sera SENIOR MARKET INTELLIGENCE CONSULTANT Unavailable Unavailable Boardman, Sera SENIOR MARKET INTELLIGENCE CONSULTANT Unavailable Unavailable Boardman, Sera SENIOR MARKET INTELLIGENCE CONSULTANT Unavailable Unavailable Boardman, Inez Dooley SENIOR MARKET INTELLIGENCE CONSULTANT Unavailable Unavailable Boardman, Inez Dooley SENIOR MARKET INTELLIGENCE CONSULTANT Unavailable Unavailable Boardman, Inez Dooley SENIOR MARKET INTELLIGENCE CONSULTANT Unavailable Unavailable Boardman, Inez Dooley SENIOR MARKET INTELLIGENCE CONSULTANT Unavailable Unavailable Cristiano, M Alesha PA-C Unavailable [...] ALEJANDRO VICENTE Unavailable Unavailable DARELL, S ALEJANDRO IVCENTE Unavailable Unavailable DARELL, S ALEJANDRO VICENTE Unavailable [...] Unavailable HAMILTON, L IMCHELLE PA Unavailable Unavailable DARELLMarian CEJA MD Unavailable [...] is protected by Article 27-F of the [facility] Public Health law. If you continue you may have access to information: Regarding HIV / AIDS; Provided by facilities licensed or operated by the [facility] Office of Mental Health; or Provided by the [facility] Office for People With Developmental Disabilities. If such information is present, then the following [facility] mandated warning applies: This information has been [...] law may result in a fine or residential sentence or both. A general authorization for the release of medical or other information is NOT sufficient authorization for further disc losure. Allergies and Adverse Reactions Type Description Substance Reaction Status Data Source(s ) Propensity to adverse reactions ACETAMINOPHEN Acetaminophen Active [facility] Propensity to adverse reactions TETRACYCLINES & RELATED Tetracyc lines & Related Active [facility] Propensity to adverse reactions TETANUS TOXOIDS Tetanus Toxoids Active [facility] Propensity to adverse reactions BACITRACIN-POLYMYXIN B Bacitraci n-Polymyxin B Rash Low Active [facility] Low Propensity to adverse reactions CELECOXIB celecoxib Rash Low Acti ve [facility] Low Encounters Encounter Providers Location Date Indications Data Source(s ) Emergency Attender: Charles DEE 01/25/2021 03:44:00 PM [facility] Outpatient Attender: Alesha Quinonez PA-C 01/16/2021 02:00 :00 PM [facility] Outpatient Attender: Soumya Ha [facility] Main Office 12/05/2020 01:00:00 PM EDT [facility] ([facility]) Outpatient Attender: Alesha Quinonez PA-C 06/07/2020 11:30 :00 AM [facility] Admission cancelled. Disregard status an d admitted date. Outpatient Attender: Alesha Stoneferrer: Alesha Quinonez PA-C 02/20/2020 11:10:00 AM [facility] - 02/20/2020 11:10:00 AM [facility] Outpatient [address] [facility] [id number] 02/02/2020 12:00:00 AM EDT eCW1 ([facility]) Outpatient Attender: Rosendo Bazzi MDReferrer: LIZ LEI 02/02/2020 12:00:00 AM EDT [facility] ( [place]) [facility] Yearly [facility]UPOLA CHARGER Exam [address] [place] [address] 01/30/2020 12:00:00 AM EDT eCW1 (Critical access hospital) Outpatient Attender: APOLINAR DEE [facility] 01/17/2020 03:00:00 PM EDT [facility] ([facility]) Outpatient Attender: ALEJANDRO AIKEN MDAdmitter: ALEJANDRO AGUIRRE MD [email or web address].CVAU 01/02/2020 11:21:00 AM EDT - 01/02/2020 04:20:00 PM EDT [facility] Patient discharged. Outpatient Attender: ALEJANDRO AIKEN MDReferrer: Bonnie Quinonez PA-C EMERGENCY ROOM-LAB REF 12/28/2019 07:27:00 AM EDT - 12/28/2019 07:27:00 AM [facility] Admission cancelled. Disregard status an d admitted date. Outpatient Attender: Alesha Quinonez PA-C 12/15/2019 04:30 :00 PM [facility] Outpatient Attender: Alesha DEE-CReferrer: Desiree DEE EMERGENCY ROOM-LAB 12/02/2019 02:18:00 PM EDT - 12/02/2019 02:18:00 PM [facility] Outpatient Attender: APOLINAR VILLEDA PAReferrer: Tyshawn DEE EMERGENCY ROOM-LABOTHPROV 12/02/2019 02:10:00 PM EDT - 12/02/2019 02:10:00 PM [facility] Outpatient Attender: Alesha Quinonez PA-C 11/25/2019 03:00 :00 PM [facility] Outpatient Attender: Rosendo Bazzi MDConsultant: Leatha Rivera NP 11/08/2019 02:26:00 PM EDT - 11/08/2019 03:26:00 PM [facility] Patient discharged. Emergency Attender: MICHELLE Bernsteiner: Tyshawn DEE EMERGENCY ROOM-ER 05/25/2019 11:14:00 AM EST - 05/25/2019 03:31:00 PM [facility] Patient discharged. Immunizations Vaccine Date Status Description Data Source(s) COVID-19 VACCINE Moderna 07/02/2020 12:00:00 AM EDT completed [facility] Vaccine Series Complete: YESThis Data wa s Submitted to [facility] Via [facility]. COVID-19 VACCINE, MRNA-1273, LNP-S (MODERNA)/PF 07/02/2020 1 2:00:00 AM EDT completed [facility] COVID-19 VACCINE, MRNA-1273, LNP-S (MODERNA)/PF 06/07/2020 1 2:00:00 AM EST completed [facility] Medications Medication Brand Name Start Date Product Form Dose Route Admi nistrative Instructions Pharmacy Instructions Status Indications Reaction Description Data Source(s) Nystatin 899246 UNT/ML Topical Cream Nystatin 12/05/2020 12:00:00 AM [...] WITH FOOD FOR 5 DAYS SOLD: 04/24/2020 [facility] 875-125 mg 04/23/2020 12:00:00 AM EST tablet 14 TAKE ONE TABLET BY MOUTH EVERY 12 HOURS TAKE ONE TABLET BY MOUTH EVERY 12 HOURS SOLD: 04/24/2020 [facility] 20 mg 02/20/2020 12:00:00 AM EST tablet 14 TAKE TWO TABLETS BY MOUTH EVERY DAY IN THE MORNING WITH FOOD FOR 7 DAYS TAKE TWO TABLETS BY MOUTH EVERY DAY IN THE MORNING WITH FOOD FOR 7 DAYS SOLD: 02/21/2020 [facility] sodium chloride 0.9% (NS) infusion 9890-6162-56 01/02/2020 03:00:00 PM EDT 75 mL/h Intravenous active at 75 mL /hr, 75 mL/hr, Intravenous, Continuous, Starting Thu01/02/20 at 1500, For 2 hours, Post-op [facility] Medication administered onsite normal saline flush 0.9 % injection 3 mL 07603-298-47 01/02/2020 02:00:00 PM EDT 3 mL Intravenous active 3 mL , Intravenous, Every 8 hours (scheduled), First dose on Thu01/02/20 at 1400, Pre-op
Rapid push positive pressure flushing shall be performed with a 10 cc normal saline syringe to check the PATENCY of a PIV site prior to any infusion therapy initiation unless resistance is met.
[facility] Medication administered onsite normal saline flush 0.9 % injection 3 mL 09949-945-79 01/02/2020 02:00:00 PM EDT 3 mL Intravenous active 3 mL , Intravenous, PROTOCOL, First dose on Thu01/02/20 at 1400, Pre-op
flush per protocol, D/C Main IV fluid if appropriate
[facility] Medication administered onsite iopamidol (ISOVUE-370) 76 % 72628 01/02/2020 01:47:00 PM EDT active As needed, Starting 01/02/20 at 1347, Intra-Procedu re [facility] Medication administered onsite 1 ML heparin sodium, porcine 1000 UNT/ML Injection hep ara (porcine) injection heparin (porcine) injection 01/02/2020 01:41:31 PM EDT active As needed, Starting 01/02/20 at 1341, Intra-Procedure [facility] Medication administered onsite 4 ML Verapamil hydrochloride 2.5 MG/ML Injection verap akin (ISOPTIN) injection verapamil (ISOPTIN) injection 01/02/2020 01:41:22 PM EDT active As needed, Starting 01/02/20 at 1341, Intra-Procedure [facility] Medication administered onsite lidocaine 1 % injection 8360-4079-17 01/02/2020 01:40:38 PM EDT active As needed, Starting Thu01/02/20 at 1340, Intra-Procedure [facility] Medication administered onsite fentaNYL Citrate (PF) (SUBLIMAZE) injection 6550-4002-84 01/02/2020 01:30:55 PM EDT active As neede d, Starting Thu01/02/20 at 1330, Intra-Procedure [facility] Medication administered onsite 2 ML Midazolam 1 MG/ML Injection midazolam (VERSED) in jection midazolam (VERSED) injection 01/02/2020 01:30:41 PM EDT active As needed, Starting Thu01/02/20 at 1330, Intra-Procedure [facility] Medication administered onsite sodium chloride 0.9% (NS) infusion 7593-9731-76 01/02/2020 01:00:00 PM EDT 100 mL/h Intravenous active at 100 m L/hr, 100 mL/hr, Intravenous, Continuous, Starting Thu01/02/20 at 1300, Pre-op
Start two hours prior to scheduled start time
[facility] Medication administered onsite clopidogrel 75 MG Oral [...] days, THEN 1 tablet Two Times Daily.. [facility] clopidogrel 75 MG Oral Tablet clopidogrel (PLAVIX) 75 MG tablet clopidogrel (PLAVIX) 75 MG tablet 75 mg Oral aborted Take 75 mg by mouth daily 5 tabs pre procedure [facility] Insurance Providers Payer name Policy type / Coverage type Policy ID Covered democrat ID Covered democrat's relationship to potts Policy Potts Plan Information MEDICARE [id number] Christine [id number] U27 MEDICARE [id number] xxxxxxxxxxx [id number] MEDICARE A [id number] Self [id number] U27 Medicare P [id number] S [id number] A UMR [id number] Christine [id number] UMR U [id number] Self [id number] UMR [id number] xxxxxxxxx [id number] MEDICARE PART A -O/P [id number] 18 [id number] UMR -O/P [id number] 18 [id number] UMR -O/P [id number] 18 [id number] ANSI-Commercial [id number] ANSI-Medicare Part B [id number] ANSI-Medicare Part B [id number] ANSI-Commercial [id number] ANSI-Commercial [id number] ANSI-Medicare Part B [id number] ANSI-Commercial [id number] ANSI-Medicare Part B [id number] ANSI-Medicare Part B [id number] ANSI-Commercial [id number] ANSI-Medicare Part B [id number] ANSI-Commercial [id number] ANSI-Commercial [id number] ANSI-Medicare Part B [id number] R O [id number] S [id number] MEDICARE C [id number] S [id number] [employer] PPO O [id number] S [id number] MEDICARE C [id number] S [id number] A POMCO [id number] SP [id number] MEDICARE [id number] SP [id number] A Sliding Fee Scale P [id number] S [id number] [employer]OM[employer] [id number] SP [id number] UMR [id number] S [id number] Sliding Fee Scale P UNAVAILABLE S UNAVAILABLE [employer] [id number] S [id number] MEDICARE - [place] [id number] S [id number] R [id number] S [id number] [employer] MEDICARE DIVISION [id number] S [id number] [place]ICARE [place] [id number] S [id number] UMR [facility] [id number] SP [id number] MEDICARE [id number] SP [id number] U27 Problems, Conditions, and Diagnoses Code Display Name Description Problem Type Effective Dates Data Source(s) J45.20 Mild intermittent asthma, uncomplicated MILD INTERMITTENT ASTHMA, UNCOMPLICATED Diagnosis 06/07/2020 11:30:00 AM [facility] l R06.02 Shortness of breath SHORTNESS OF BREATH Diagnosis 1 04/21/2019 11:10:00 AM [facility] Z13.220 Encounter for screening for lipoid disor ders ENCOUNTER FOR SCREENING FOR LIPOID DISOR Diagnosis 02/20/2020 11:10:00 AM [facility] l R55 Syncope and collapse Syncope and collapse Diagnosis 01/02/2020 11:21:00 AM EDT [facility] R94.39 Abnormal result of other cardiovascular function study Abnormal result of other cardiovascular Diagnosis 01/02/2020 11:21:00 AM EDT [facility] Z01.818 Encounter for other preprocedural examin ation ENCOUNTER FOR OTHER PREPROCEDURAL EXAMIN Diagnosis [facility] Venous insufficiency (chronic) (peripher al) VENOUS INSUFFICIENCY (CHRONIC) (PERIPHERAL) Diagnosis 12/15/2019 04:30:[facility] Z[facility]59 Encounter for screening for other viral diseases ENCOUNTER FOR SCREENING FOR OTHER VIRAL DISEASES Diagnosis 12/15/2019 04:30:00 PM [facility] spital G89.29 Other chronic pain OTHER CHRONIC PAIN Diagnosis 06/2019 04:30:00 PM [facility] M54.5 Low back pain LOW BACK PAIN Diagnosis 12/15/2019 04:30:00 PM [facility] E55.9 Vitamin D deficiency, unspecified VITAMIN D DEFI CIENCY, UNSPECIFIED Diagnosis 12/02/2019 02:10:00 PM [facility] Z13.29 Encounter for screening for other suspec guillermo endocrine disorder ENCOUNTER FOR SCREENING FOR OTH SUSPECTED ENDOCRIN Diagnosis 12/02/2019 02:10:00 PM [facility] E78.49 OTHER HYPERLIPIDEMIA OTHER HYPERLIPIDEMIA Diagnosis 12/02/2019 02:10:00 PM [facility] Surgeries/Procedures Procedure Description Date Indications Data Source(s) DESTRUCTION PREMALIGNANT LESION 1ST 12/05/2020 12:00:[address] [facility] ([facility]) DESTRUCTION PREMALIGNANT LESION 2-14 EA 12/05/2020 12: [facility] OFFICE OUTPATIENT VISIT 25 MINUTES 12/05/2020 12:00:00 AM [facility] Nurse [facility]) CARDIAC CATHETERIZATION <td>CARDIAC CATHETERIZATION</td><td>Routine</td><td>01/02/2020 1:46 PM EDT</td><td> Abnormal result of other cardiovascular function study Syncope</td><td> </td> 01/02/2020 05:46:50 PM EDT SyncopeAbnormal result of other cardiovascular functio n study [facility] Syncope Abnormal result of other cardiovascular function study ECG ROUTINE ECG W/LEAST 12 LDS TRCG ONLY W/O I&R <td>E CG 12- LEAD</td><td>Routine</td><td>01/02/2020 12:19 PM EDT</td><td></td><td></td> 01/02/2020 04:19:38 PM EDT [facility] BLOOD COUNT COMPLETE AUTOMATED <td>CBC</td><td>Routine </td><td>01/02/2020 12:00 PM EDT</td><td></td><td> </td> 01/02/2020 04:00:00 PM EDT [facility] Left Heart Cath W/Wo LV & Coronary Angiography 020 12:00:00 AM EDT [facility] ([facility] LAB SCAN <td>LAB SCAN</td><td></td><td>12/28/2019 </td><td></td><td></td> 12/28/2019 12:00:00 AM EDT [facility] Results ID Date Data Source [id number] 02/22/2020 03:06:00 PM EST [facility] Name Value [...] sole basis to diagnose or exclude recent ILRQ-HnP-2loetszbvx. ID Date Data Source [id number] 02/22/2020 03:06:00 PM EST [facility] Name Value Range Interpretation Code Description Data Oksana rce(s) Supporting Document(s) SARS-CoV-2 Antibody, IgG Negative [facility] See [employer] SARS-CoV-2 Ab, IgG ID Date Data Source [id number] 02/22/2020 03:06:00 PM EST [facility] Name Value [...] sole basis to diagnose or exclude recent VNKW-[id number].This assay was performed using the [employer] Liaison(R)SARS-CoV-2 S1/S2 IgG assay. ID Date Data Source [id number] 02/22/2020 03:06:00 PM EST [facility] Name Value [...] sole basis to diagnose or exclude recent [id number]. ID Date Data Source [id number] 02/20/2020 12:13:00 PM EST [facility] [...] FOR SERVICE 01/31/2020 10:52:39 AM EDT eCW1 ([facility]) Name Value Range Interpretation Code Description Data Oksana rce(s) Supporting Document(s) Laboratory studies (set) PAP REQUEST FOR SERVICE eCW1 ([facility]) ID Date Data Source CA [id number] 01/31/2020 09:05:11 AM EDT eCW1 ([facility]) Name Value Range Interpretation Code Description Data Oksana rce(s) Supporting Document(s) 4.3 CA 125 eCW1 (Critical access hospital) ID Date Data Source [id number] 01/02/2020 01:54:28 PM EDT [facility] Name Value Range Interpretation Code Description Data Oksana rce(s) Supporting Document(s) &PDF [facility] QYTTOh1mIhEXBoTd79/HBXwgVVMcr0XbJLjyTCw7NUbqLHEhX2BzjPggBINGO6gKNflBGULKABTWFF8v oRX [file] ULJqGIzfRCDQHh5W ID Date Data Source [id number] 01/02/2020 12:39:28 PM EDT [facility] Name Value Range Interpretation Code Description Data Oksana rce(s) Supporting Document(s) EKG [facility] YGUILg0dPoQWOdRoi5AvPxEfAPWgBQ9dqau5O4Z6fOEaB1IglGVlq3asX0YvQ1FaSQGrCUCVMK7SyRVh jb2 [file] RDoyMDIwMDkyMTEyMzkpIAogICAgICAgICAgICAvVG b9lWZzFW8OE9TcCDHdFGEWZLStlsPsXk7qALAZC8zXEbxuF0TKRGiaCAKxRSGkYMp7JMGyI5SyzgTekE BsVFFGTDycPxoeDAFpxI9siWjwD3WuTPE9a0GnIJ2BX7JqOGXtVNTSDPA1h3GpXCNhwdmirslvOaEeOJ XlOSKfSPXwCW3Qxw2ozRYbytLzPCVYWBckTxmqBA9y iSbtocnmN5NvnPHsFBK+WrNqJC3ktn8+LmFzMSHaKzh0HXNmVGdfDXIkXRUyADFqG9mgHWFjNzIzPVLw PkIoEE2Lp6YntOTzKz6nqnSaDhrDsMKeYcsyRXAdKHLlKMVtJuGLNPSbQRIwELXlVZG2NYXwNISfFZpi IGDhQTO6ZptxKVZaNGTeEQ3vNiKhMUYjQMB3IMFrEF MkRTNvsbSYHAPuPLU7CoCxQVZzMXPcGTFjUKgyLEUvRRYwOVHaSLY4XDE7STCtHwPhQAIgRQByJGIdMR SaHFSfslIRNDBvMMPaBHG6IBQwIUBpPTJzVDodQBEhATRtVZzmMSBiZUFcXV3rMfGrWUOiLKXfXFpkOH AwMDAgbiAKMDAwMDAwMDQwOSAwMDAwMCBuIAowMDAw SHEgTEUjMETgVQZxIO1lEzEgIALjXTL4NYUiDCXaZJXjdxOHKGPrUNCkGVd1DIIeZCEuUZQwEOxeJOOc QNPsNEK0ARWiQCMeKY8mJtKbSYKwKTG1FlVoQGYhEYJadvTHMXHxYIAzWJK1TmGxXOLhSTAfKKvjUALh BZTwMYztQTIpPQGmKG7xXcFhPDUtPJNwBReqIYQwZC BgbqXWJQLbJDGzKDVbYaPjDVBaAFKtRMlrYRRsBNF9NZE8DWVwWXOrAA5hQhYqLXUxAOB8ATznYPWeWN GwtkFGEMHeBSSzMNcpWNNaPSRiXLCcPSwwYDSvASVbSON9EXYaJTBsCB7hVdFkWBQgCKOjGTFgOuA7Zh DiSsTYkXTtsZudftp3EBzoK7x3CYIqHLwvPH8xvqZx YJZoNgrzVz1mfRB9JFGtKuqXEh7Um6LahkI1plPnTlO2ViL5RpTlZU6R ID Date Data Source [id number] 01/02/2020 12:26:41 PM EDT [facility] INFORMATIONPatient MRN Name Date of Age Gend*PT [id number] Woodrow Urban 1945 74 years F HOPPT Location Admission Date/Time Visit ID Attending ProviderCV-[id number] 01/02/20 1121 --- Alejandro Aiken MD([id number]) EPI ID CSN Admitting Provider [id number] Alejandro Aiken MD([id number])Updated H&PPlease see the scanned/dictated outpatient note.I have reviewed the note, clinical history and physical exam findings. Therehave been no significant changes.Plan as outlined in the outpatient note.Risk/benifit/alternative of cardiac catheterization was discussed withpatient/family. Risks included, but not limited to; AK, CVA, , renalimpairment, vascular complication, and need for emergency surgery were discussedand accepted by patient.Alejandro Aiken MD, [facility] C[facility] Name Value Range Interpretation Code Description Data Oksana rce(s) Supporting Document(s) ID Date Data Source [id number] 01/02/2020 01:31:37 PM EDT [facility] Name Value Range Interpretation Code Description Data Oksana rce(s) Supporting Document(s) WBC 9.3 10*3/uL (4.1-11.0) [facility] RBC 4.68 10*6/uL (4.00-5.40) [facility] HGB 14.2 g/dL (12.0-16.0) [facility] HCT 43.9 % (36.0-47.0) [facility] [place]FORMED [place] [address] [place] [address] MCV 93.8 fL (80.0-95.0) [facility] MCH 30.4 pg (27.0-32.0) [facility] MCHC 32.4 g/dL (32.0-36.0) [facility] RDW 14.1 % (10.5-14.5) [facility] PLT 230 10*3/uL (150-450) [facility] MPV 9.1 fL (7.1-10.7) Lab [facility] MARYELLEN ID Date Data Source [id number] 12/29/2019 02:05:00 PM EDT [facility] Name Value [...] in this assay. ID Date Data Source [id number] 12/28/2019 08:00:00 AM EDT [facility] Name Value Range Interpretation Code Description Data Oksana rce(s) Supporting Document(s) SARS coronavirus 2 RNA [facility] This lab was ordered by [facility] a nd reported by [facility]. ID Date Data Source [id number] 12/29/2019 02:05:00 PM EDT [facility] Name Value Range Interpretation Code Description Data Oksana rce(s) Supporting Document(s) Inpatient [facility] Received ID Date Data Source [id number] 12/29/2019 02:06:00 PM EDT [facility] Name Value Range Interpretation Code Description Data Oksana rce(s) Supporting Document(s) SARS COV2 Not Detected Not Detected [facility] This nucleic acid amplification test was developed and itsperformance characteristics determined by [facility]. Nucleic acid amplification tests include PCRand TMA. This test has not been FDA cleared or approved.This test has been authorized by FDA under an Emergency UseAuthorization (EUA). This test is only authorized forthe duration of time the declaration that circumstancesexist justifying the authorization of the emergency use ofin vitro diagnostic tests for detection of SARS-CoV-2 virusand/or diagnosis of COVID-19 infection under [id number](b)(1) of the Act, 21 U.S.C. 360bbb-3(b) (1), [...] in this assay. ID Date Data Source [id number] 12/03/2019 08:06:00 AM EDT [facility] l Name Value Range Interpretation Code Description Data Oksana rce(s) Supporting Document(s) VITAMIN D, 25-HYDROXY 28.2 ng/mL 30.0-100.0 [facility] Vitamin D deficiency has been defined by the [place] of[place] and an Endocrine Society practice guideline as alevel of serum 25-OH vitamin D less than 20 ng/mL (1,2).The Endocrine Society went on to further define vitamin Dinsufficiency as a level between 21 and 29 ng/mL (2).1. IOM ([place] of [employer]). 2010. Dietary reference intakes for calcium and D. [place]: The National Academies Press.2. Kristie MF, Gaby [place], Ilia SCHMIDT, et al. Evaluation, treatment, and prevention of vitamin D deficiency: an Endocrine Society clinical practice guideline. JCEM. 2010; 96(7):1911- 30.Performed at: - [facility] [id number] Director: Radha Guadalupe MD, Phone: [phone] ID Date Data Source [id number] 12/03/2019 08:06:00 AM EDT [facility] Name Value Range Interpretation Code Description Data Oksana rce(s) Supporting Document(s) Vitamin D, 25-Hydroxy 28.2 ng/mL 30.0-100.0 Below low normal [facility] Vitamin D deficiency has been defined by the [place] of[place] and an Endocrine Society practice guideline as alevel of serum 25-OH vitamin D less than 20 ng/mL (1,2).The Endocrine Society went on to further define vitamin Dinsufficiency as a level between 21 and 29 ng/mL (2).1. IOM ([place] of [place]). 2010. Dietary reference intakes for calcium and D. [place]: The National Academies Press.2. Kristie MF, Gaby VILLATORO, Ilia SCHMIDT, et al. Evaluation, treatment, and prevention of vitamin D deficiency: an Endocrine Society clinical practice guideline. JCEM. 2010; 96(7):1911-30. ID Date Data Source [id number] 12/02/2019 03:41:00 PM EDT [facility] l Name Value Range Interpretation Code Description Data [facility] Supporting Document(s) GLUCOSE 89 mg/dL 74-106 [facility] BLOOD UREA NITROGEN 16 mg/dL 7-18 [facility] ital CREATININE 0.8 mg/dL 0.6-1.0 [facility] SODIUM 141 mmol/L 136-145 [facility] POTASSIUM 4.3 mmol/L 3.5-5.1 [facility] CHLORIDE 104 mmol/L 98-107 [facility] CO2 28 mmol/L 21-32 [facility] CALCIUM 9.0 mg/dL 8.5-10.1 [facility] ANION GAP 9.0 mmol/L 5-12 [facility] GLOMERULAR FILTRATION RATE 71 mL/min [facility] GFR IS CALCULATED IN mL/min/1.73m2 KUNAL L FUNCTION: >90MILDLY DECREASED: 60-89MILDY TO MODERATELY DECREASED: 45-59 MODERATELY TO SEVERELY DECREASED: 30-44SEVERELY DECREASED: 15-29RENAL FAILURE: <15 AST 21 U/L 15-37 [facility] ALT 29 U/L 12-78 [facility] ALKALINE PHOSPHATASE 74 U/L 46-116 [facility] pital TOTAL BILIRUBIN 0.4 mg/dL 0.2-1.0 [facility] TOTAL PROTEIN 6.8 g/dl 6.4-8.2 [facility] ALBUMIN 3.6 gm/dL 3.4-5.0 [facility] ID Date Data Source [id number] 12/02/2019 03:26:00 PM EDT [facility] Name Value Range Interpretation Code Description Data Oksana rce(s) Supporting Document(s) FREE T4 1.07 ng/dL 0.76-1.46 [facility] ID Date Data Source [id number] 12/02/2019 03:26:00 PM EDT [facility] Name Value Range Interpretation Code Description Data Oksana rce(s) Supporting Document(s) TSH 1.85 uIU/mL 0.36-3.74 [facility] ID Date Data Source [id number] 12/02/2019 02:37:00 PM EDT [facility] Name Value Range Interpretation Code Description Data Oksana rce(s) Supporting Document(s) WHITE BLOOD COUNT 8.4 K/mm3 4.0-10.0 [facility] al RED BLOOD COUNT 4.50 M/mm3 4.00-5.50 [facility] HEMOGLOBIN 13.6 gm/dL 12.0-16.0 [facility] HEMATOCRIT 42.0 % 36.0-48.8 [facility] MEAN CELL VOLUME 93.3 fl 80-96 [facility] MEAN CORPUSCULAR HEMOGLOBIN 30.2 pg 27.0-31.0 [facility] MEAN CORPUSCULAR HGB CONC 32.4 g/dl 32.0-36.0 [facility] RED CELL DISTRIBUTION WIDTH 13.3 % 10.0-14.5 [facility] PLATELET COUNT 236 K/mm3 172-450 [facility] ID Date Data Source [id number] 12/02/2019 03:17:00 PM EDT [facility] FAX [phone] Name Value Range Interpretation Code Description Data Oksana rce(s) Supporting Document(s) CREATINE PHOSPHOKINASE 118 U/L 26-192 [facility] ospital ID Date Data Source [id number] 12/02/2019 03:17:00 PM EDT [facility] l FAX [phone] Name Value Range Interpretation Code Description Data Oksana rce(s) Supporting Document(s) CHOLESTEROL 235 mg/dL 0-200 [facility] TRIGLYCERIDES 198 mg/dL 0-150 [facility] LDL CHOLESTEROL 147 mg/dL 0-100 [facility] HDL CHOLESTEROL 48 mg/dL 40-60 [facility] CHOL/HDL RATIO 4.9 0.0-5.0 [facility] Procedure Social History Code Duration Value Status Description Data Source(s ) Smoking 02/02/2020 12:00:00 AM EDT Never Smoker completed Never S moker eCW1 ([facility]) Smoking 02/02/2020 12:00:00 AM EDT Never Smoker completed Never S moker eCW1 ([facility]) Alcohol intake 01/02/2020 12:00:00 AM EDT Never completed [facility] Smoking 01/02/2020 12:00:00 AM EDT Never smoker completed Never [facility] Vital Signs ID Date Data Source UNK Name Value Range Interpretation Code Description Data Source(s) Systolic blood pressure 133 mm[Hg] 133 mm[Hg] M EDENT ([facility]) Diastolic blood pressure 62 mm[Hg] 62 mm[Hg] MEDENT ([facility]) Body weight 280.00 [lb_av] 280.00 [lb_av] MEDEN T ([facility]) Body height 67 [in_i] 67 [in_i] MEDENT ([facility]) 5'7" Body mass index (BMI) [Ratio] 43.8 kg/m2 43.8 k g/m2 MEDENT ([facility]) Body weight 281.0 [lb_av] 281.0 [lb_av] eCW1 ([facility]) Body height 65.5 [in_i] 65.5 [in_i] eCW1 ([facility]) Body mass index (BMI) [Ratio] 46.04 kg/m2 46.04 kg/m2 eCW1 ([facility]) Heart rate 72 /min 72 /min eCW1 ([facility]) Respiratory rate 18 /min 18 /min eCW1 ([facility]) Body temperature 98.1 [degF] 98.1 [degF] eCW1 ( [facility]) Systolic blood pressure 137 mm[Hg] 137 mm[Hg] e CW1 ([facility]) Diastolic blood pressure 70 mm[Hg] 70 mm[Hg] eCW1 ([facility]) Body weight 245 [lb_av] 245 [lb_av] eCW1 ([facility]) Body weight 111.13 kg 111.13 kg eCW1 [facility] Body height 65.5 [in_i] 65.5 [in_i] eCW1 ([facility]) Body mass index (BMI) [Ratio] 40.15 kg/m2 40.15 kg/m2 eCW1 ([facility]) Systolic blood pressure 148 mm[Hg] 148 mm[Hg] e CW1 ([facility]) Diastolic blood pressure 78 mm[Hg] 78 mm[Hg] eCW1 ([facility]) Heart rate 83 /min 83 /min MEDENT ([facility] Systolic blood pressure 130 mm[Hg] 130 mm[Hg] M EDENT ([facility]) Diastolic blood pressure 68 mm[Hg] 68 mm[Hg] MEDENT ([facility] Body weight 270.00 [lb_av] 270.00 [lb_av] MEDEN T ([facility] Body height 66 [in_i] 66 [in_i] MEDENT ([facility] 5'6" Body mass index (BMI) [Ratio] 43.6 kg/m2 43.6 k g/m2 MEDENT ([facility]) Oxygen saturation in Arterial blood by Pulse oximetry 98 % 98 % MEDENT ([facility]) Body surface area Derived from formula 2.27 m2 2.27 m2 MEDENT ([facility]) Systolic blood pressure 154 mm[Hg] 154 mm[Hg] [facility] Diastolic blood pressure 59 mm[Hg] 59 mm[Hg] [facility] Heart rate 82 /min 82 /min [facility] Body temperature 36.72 Sonya 36.72 Sonya [facility] Respiratory rate 18 /min 18 /min [facility] Oxygen saturation in Arterial blood by Pulse oximetry 97 % 97 % [facility] Body height 167.6 cm 167.6 cm [facility] Body weight 124.739 kg 124.739 kg [facility] Body mass index (BMI) [Ratio] 44.39 kg/m2 44.39 kg/m2 [facility] Patient Treatment Plan of Care Planned Activity Planned Date Details Description Data Source (s) Levetiracetam 1000 MG Oral Tablet 06/17/2019 12:00:00 AM [facility] clopidogrel 75 MG Oral Tablet [facility]
--- OUTSIDE RECORDS SUMMARY | 2021-01-25 19:14 | CCD ---
Author Author [facility] Organization [facility] Address Unknown Phone Unavailable Care Team Providers Care Cd Reactor Operator Name Role Phone Lobato, Charles PA [...] Lobato, Charles PA Unavailable Unavailable Macsherry, Leatha CARTRIDGE ASSEMBLER Unavailable Unavailable Macsherry, Leatha CARTRIDGE ASSEMBLER Unavailable Unavailable Macsherry, Leatha CARTRIDGE ASSEMBLER Unavailable Unavailable Macsherry, Leatha CARTRIDGE ASSEMBLER Unavailable Unavailable Macsherry, Leatha CARTRIDGE ASSEMBLER Unavailable Unavailable Macsherry, Leatha CARTRIDGE ASSEMBLER Unavailable Unavailable Macsherry, Leatha CARTRIDGE ASSEMBLER Unavailable Unavailable Macsherry, Leatha CARTRIDGE ASSEMBLER Unavailable Unavailable Macsherry, Leatha CARTRIDGE ASSEMBLER Unavailable Unavailable Macsherry, Leatha CARTRIDGE ASSEMBLER Unavailable Unavailable Macsherry, Leatha CARTRIDGE ASSEMBLER Unavailable Unavailable Macsherry, Leatha CARTRIDGE ASSEMBLER Unavailable Unavailable Macsherry, Leatha CARTRIDGE ASSEMBLER Unavailable Unavailable Macsherry, Leatha CARTRIDGE ASSEMBLER Unavailable Unavailable Macsherry, Leatha CARTRIDGE ASSEMBLER Unavailable Unavailable Macsherry, Leatha CARTRIDGE ASSEMBLER Unavailable Unavailable Macsherry, Leatha CARTRIDGE ASSEMBLER Unavailable Unavailable Macsherry, Leatha CARTRIDGE ASSEMBLER Unavailable Unavailable Macsherry, Leatha CARTRIDGE ASSEMBLER Unavailable Unavailable Macsherry, Leatha CARTRIDGE ASSEMBLER Unavailable Unavailable Macsherry, Leatha CARTRIDGE ASSEMBLER Unavailable Unavailable Macsherry, Leatha CARTRIDGE ASSEMBLER Unavailable Unavailable Macsherry, Leatha CARTRIDGE ASSEMBLER Unavailable Unavailable Macsherry, Leatha CARTRIDGE ASSEMBLER Unavailable Unavailable Macsherry, Leatha CARTRIDGE ASSEMBLER Unavailable Unavailable Rosendo Bazzi MD Unavailable Unavailable [...] J APOLINAR PA Unavailable Unavailable CHRISTIANA, J APOLINRA PA Unavailable Unavailable CHRISTIANA, J APOLINAR PA [...] Unavailable Unavailable Rosendo Bazzi MD Unavailable Unavailable Roesndo Bazzi MD Unavailable Unavailable Rosendo Bazzi MD Unavailable Unavailable Rosendo Bazzi MD Unavailable Unavailable Rosendo Bazzi MD Unavailable Unavailable Oglesby, Sera ANIMAL GENETICIST Unavailable Unavailable Oglesby, Sera ANIMAL GENETICIST Unavailable Unavailable Oglesby, Sera ANIMAL GENETICIST Unavailable Unavailable Oglesby, Sera ANIMAL GENETICIST Unavailable Unavailable Oglesby, Sera ANIMAL GENETICIST Unavailable Unavailable Oglesby, Sera ANIMAL GENETICIST Unavailable Unavailable Oglesby, Sera ANIMAL GENETICIST Unavailable Unavailable Oglesby, Sera ANIMAL GENETICIST Unavailable Unavailable Oglesby, Sera ANIMAL GENETICIST Unavailable Unavailable Oglesby, Sera ANIMAL GENETICIST Unavailable Unavailable Oglesby, Sera ANIMAL GENETICIST Unavailable Unavailable Oglesby, Sera ANIMAL GENETICIST Unavailable Unavailable Oglesby, Sera ANIMAL GENETICIST Unavailable Unavailable Oglesby, Sera ANIMAL GENETICIST Unavailable Unavailable Oglesby, Sera ANIMAL GENETICIST Unavailable Unavailable Oglesby, Sera ANIMAL GENETICIST Unavailable Unavailable Oglesby, Sera ANIMAL GENETICIST Unavailable Unavailable Oglesby, Sera ANIMAL GENETICIST Unavailable Unavailable Oglesby, Sera ANIMAL GENETICIST Unavailable Unavailable Oglesby, Sera ANIMAL GENETICIST Unavailable Unavailable Oglesby, Sera ANIMAL GENETICIST Unavailable Unavailable Oglesby, Sera ANIMAL GENETICIST Unavailable Unavailable Oglesby, Sera ANIMAL GENETICIST Unavailable Unavailable Oglesby, Sera ANIMAL GENETICIST Unavailable Unavailable Oglesby, Sera ANIMAL GENETICIST Unavailable Unavailable Oglesby, Sera ANIMAL GENETICIST Unavailable Unavailable Oglesby, Sera ANIMAL GENETICIST Unavailable Unavailable Oglesby, Sera ANIMAL GENETICIST Unavailable Unavailable Oglesby, Sera ANIMAL GENETICIST Unavailable Unavailable Oglesby, Sera ANIMAL GENETICIST Unavailable Unavailable Oglesby, Sera ANIMAL GENETICIST Unavailable Unavailable Oglesby, Sera ANIMAL GENETICIST Unavailable Unavailable Oglesby, Inez Dooley ANIMAL GENETICIST Unavailable Unavailable Oglesby, Inez Dooley ANIMAL GENETICIST Unavailable Unavailable Oglesby, Inez Dooley ANIMAL GENETICIST Unavailable Unavailable Oglesby, Inez Dooley ANIMAL GENETICIST Unavailable Unavailable Cristiano, M Alesha PA-C Unavailable Unavailable Cristiano, M Alesha PA-C Unavailable Unavailable Cristiano, M Alesha PA-C Unavailable Unavailable Cristiano, M Alesha PA-C Unavailable Unavailable Cristiano, M Alesha PA-C Unavailable Unavailable Cristiano, M Alesha PA-C Unavailable Unavailable Cristiano, M Alesha PA-C Unavailable Unavailable Cristiano, M Alesha PA-C Unavailable Unavailable Cristiano, M Alesha PA-C Unavailable Unavailable Cristiano, M Alesha PA-C Unavailable Unavailable Crsitiano, M Alesha PA-C Unavailable Unavailable Cristiano, M [...] M Alesha PA-C Unavailable Unavailable Cristiano, M Alehsa PA-C Unavailable Unavailable Cristiano, M Alesha PA-C [...] is protected by Article 27-F of the [facility] Public Health law. If you continue you may have access to information: Regarding HIV / AIDS; Provided by facilities licensed or operated by the [facility] Office of Mental Health; or Provided by the [facility] Office for People With Developmental Disabilities. If such information is present, then the following [facility] mandated warning applies: This information has [...] law may result in a fine or long-term sentence or both. A general authorization for the release of medical or other information is NOT sufficient authorization for further disc losure. Allergies and Adverse Reactions Type Description Substance Reaction Status Data Source(s ) Propensity to adverse reactions ACETAMINOPHEN Acetaminophen Active [facility] Propensity to adverse reactions TETRACYCLINES & RELATED Tetracyc lines & Related Active [facility] Propensity to adverse reactions TETANUS TOXOIDS Tetanus Toxoids Active [facility] Propensity to adverse reactions BACITRACIN-POLYMYXIN B Bacitraci n-Polymyxin B Rash Low Active [facility] Low Propensity to adverse reactions CELECOXIB celecoxib Rash Low Acti ve [facility] Low Encounters Encounter Providers Location Date Indications Data Source(s ) Emergency Attender: Charles DEE 01/25/2021 03:44:00 PM [facility] Outpatient Attender: Alesha Quinonez PA-C 01/16/2021 02:00 :00 PM [facility] Outpatient Attender: Soumya Ha [facility] Main Office 12/05/2020 01:00:00 PM EDT [facility]) Outpatient Attender: Alesha Quinonez PA-C 06/07/2020 11:30 :00 AM [facility] Admission cancelled. Disregard status an d admitted date. Outpatient Attender: Alesha Stoneferrer: Alesha Quinonez PA-C 02/20/2020 11:10:00 AM [facility] - 02/20/2020 11:10:00 AM [facility] [address] [facility] [address] 02/02/2020 12:00:00 AM EDT eCW1 ([facility]) Outpatient Attender: Rosendo Bazzi MDReferrer: LIZ LEI 02/02/2020 12:00:00 AM EDT [facility] ( [facility] Yearly HVAC SERVICE TECHNICIAN Exam [address] [place] [address] 01/30/2020 12:00:00 AM EDT eCW1 ([facility]) Outpatient Attender: APOLINAR DEE [facility] 01/17/2020 03:00:00 PM EDT [facility] ([facility]) Outpatient Attender: ALEJANDRO AIKEN MDAdmitter: ALEJANDRO AGUIRRE MD [email or web address].CVAU 01/02/2020 11:21:00 AM EDT - 01/02/2020 04:20:[address] [facility] Patient discharged. Outpatient Attender: ALEJANDRO AIKEN MDReferrer: Bonnie Quinonez PA-C EMERGENCY ROOM-LAB REF 12/28/2019 07:27:00 AM EDT - 12/28/2019 07:27:00 AM [facility] Admission cancelled. Disregard status an d admitted date. Outpatient Attender: Alesha Quinonez PA-C 12/15/2019 04:30 :00 PM [facility] Outpatient Attender: Alesha DEE-CReferrer: Desiree DEE EMERGENCY ROOM-LAB 12/02/2019 02:18:00 PM EDT - 12/02/2019 02:18:00 PM [facility] Outpatient Attender: APOLINAR VILLEDA PAReferrer: Tyshawn DEE EMERGENCY ROOM-LABOTHPROV 12/02/2019 02:10:00 PM EDT - 12/02/2019 02:10:00 PM [facility] Outpatient Attender: Alesha Quinonez PA-C 11/25/2019 03:00 :00 PM [facility] Outpatient Attender: Rosendo Bazzi MDConsultant: Leatha Rivera NP 11/08/2019 02:26:00 PM EDT - 11/08/2019 03:26:00 PM [facility] Patient discharged. Emergency Attender: MICHELLE Bernsteiner: Tyshawn DEE EMERGENCY ROOM-ER 05/25/2019 11:14:00 AM EST - 05/25/2019 03:31:00 PM [facility] Patient discharged. Immunizations Vaccine Date Status Description Data Source(s) COVID-19 VACCINE Moderna 07/02/2020 12:00:00 AM EDT completed [employer] Vaccine Series Complete: YESThis Data wa s Submitted to [facility] Via [employer]. COVID-19 VACCINE, MRNA-1273, LNP-S (MODERNA)/PF 07/02/2020 1 2:00:00 AM EDT completed [facility] COVID-19 VACCINE, MRNA-1273, LNP-S (MODERNA)/PF 06/07/2020 1 2:00:00 AM EST completed [facility] Medications Medication Brand Name Start Date Product Form Dose Route Admi nistrative Instructions Pharmacy Instructions Status Indications Reaction Description Data Source(s) Nystatin 212066 UNT/ML Topical Cream Nystatin 12/05/2020 12:00:00 AM [...] WITH FOOD FOR 7 DAYS SOLD: 02/21/2020 [facility] sodium chloride 0.9% (NS) infusion 8630-1725-45 01/02/2020 03:00:00 PM EDT 75 mL/h Intravenous active at 75 mL /hr, 75 mL/hr, Intravenous, Continuous, Starting Thu01/02/20 at 1500, For 2 hours, Post-op [facility] Medication administered onsite normal saline flush 0.9 % injection 3 mL [id number] 01/02/2020 02:00:00 PM EDT 3 mL Intravenous active 3 mL , Intravenous, Every 8 hours (scheduled), First dose on Thu01/02/20 at 1400, Pre-op
Rapid push positive pressure flushing shall be performed with a 10 cc normal saline syringe to check the PATENCY of a PIV site prior to any infusion therapy initiation unless resistance is met.
[facility] Medication administered onsite normal saline flush 0.9 % injection 3 mL [id number] 01/02/2020 02:00:00 PM EDT 3 mL Intravenous active 3 mL , Intravenous, PROTOCOL, First dose on Thu01/02/20 at 1400, Pre-op
flush per protocol, D/C Main IV fluid if appropriate
[facility] Medication administered onsite iopamidol (ISOVUE-370) 76 % 26058 01/02/2020 01:47:00 PM EDT active As needed, Starting 01/02/20 at 1347, Intra-Procedu re [facility] Medication administered onsite 1 ML heparin sodium, porcine 1000 UNT/ML Injection hep ara (porcine) injection heparin (porcine) injection 01/02/2020 01:41:31 PM EDT active As needed, Starting 01/02/20 at 1341, Intra-Procedure [facility] Medication administered onsite 4 ML Verapamil hydrochloride 2.5 MG/ML Injection verap akin (ISOPTIN) injection verapamil (ISOPTIN) injection 01/02/2020 01:41:22 PM EDT active As needed, Starting 01/02/20 at 1341, Intra-Procedure [facility] Medication administered onsite lidocaine 1 % injection [id number] 01/02/2020 01:40:38 PM EDT active As needed, Starting Thu01/02/20 at 1340, Intra-Procedure [facility] Medication administered onsite fentaNYL Citrate (PF) (SUBLIMAZE) injection 1112-8467-80 01/02/2020 01:30:55 PM EDT active As neede d, Starting Thu01/02/20 at 1330, Intra-Procedure [facility] Medication administered onsite 2 ML Midazolam 1 MG/ML Injection midazolam (VERSED) in jection midazolam (VERSED) injection 01/02/2020 01:30:41 PM EDT active As needed, Starting Thu01/02/20 at 1330, Intra-Procedure [facility] Medication administered onsite sodium chloride 0.9% (NS) infusion 9171-4805-32 01/02/2020 01:00:00 PM EDT 100 mL/h Intravenous active at 100 m L/hr, 100 mL/hr, Intravenous, Continuous, Starting Thu01/02/20 at 1300, Pre-op
Start two hours prior to scheduled start time
[facility] Medication administered onsite clopidogrel 75 MG Oral [...] days, THEN 1 tablet Two Times Daily.. [facility]op[facility]rel 75 MG Oral Tablet clopidogrel (PLAVIX) 75 MG tablet clopidogrel (PLAVIX) 75 MG tablet 75 mg Oral aborted Take 75 mg by mouth daily [address] [facility] Insurance Providers Payer name Policy type / Coverage type Policy ID Covered libertarian ID Covered libertarian's relationship to potts Policy Potts Plan Information MEDICARE [id number] Christine [id number] U27 MEDICARE [id number] xxxxxxxxxxx [id number] MEDICARE A [id number] Self [id number] U27 Medicare P [id number] S [id number] A UMR [id number] Christine [id number] UMR U [id number] Self [id number] UMR [id number] xxxxxxxxx [id number] MEDICARE PART A -O/P [id number] 18 [id number] UMR -O/P [id number] 18 [id number] UMR -O/P [id number] 18 [id number] ANSI-Commercial [id number] ANSI-Medicare Part B [id number] ANSI-Medicare Part B [id number] ANSI-Commercial [id number] ANSI-Commercial [id number] ANSI-Medicare Part B [id number] ANSI-Commercial [id number] ANSI-Medicare Part B [id number] ANSI-Medicare Part B [id number] ANSI-Commercial [id number] ANSI-Medicare Part B [id number] ANSI-Commercial [id number] ANSI-Commercial [id number] ANSI-Medicare Part B [id number] R O [id number] S [id number] MEDICARE C [id number] S [id number] [employer] PPO O [id number] S [id number] MEDICARE C [id number] S [id number] A POMCO [id number] SP [id number] MEDICARE [id number] SP [id number] A Sliding Fee Scale P [id number] S [id number] POMCO [id number] SP [id number] UMR [id number] S [id number] Sliding Fee Scale P UNAVAILABLE S UNAVAILABLE [place] MED[employer]ARE DIVISION [id number] S [id number] MEDICARE - [place] [id number] S [id number] R [id number] S [id number] [employer] MEDICARE DIVISION [id number] S [id number] MEDICARE - [place] [id number] S [id number] UMR [facility] [id number] SP [id number] MEDICARE [id number] SP [id number] Problems, Conditions, and Diagnoses Code Display Name Description Problem Type Effective Dates Data Source(s) J45.20 Mild intermittent asthma, uncomplicated MILD INTERMITTENT ASTHMA, UNCOMPLICATED Diagnosis 06/07/2020 11:30:00 AM [facility] l R06.02 Shortness of breath SHORTNESS OF BREATH Diagnosis 1 04/21/2019 11:10:00 AM [facility] Z13.220 Encounter for screening for lipoid disor ders ENCOUNTER FOR SCREENING FOR LIPOID DISOR Diagnosis 02/20/2020 11:10:00 AM [facility] l R55 Syncope and collapse Syncope and collapse Diagnosis 01/02/2020 11:21:[address] [facility] R94.39 Abnormal result of other cardiovascular function study Abnormal result of other cardiovascular Diagnosis 01/02/2020 11:21:00 AM EDT [facility] Z01.818 Encounter for other preprocedural examin ation ENCOUNTER FOR OTHER PREPROCEDURAL EXAMIN Diagnosis 12/28[facility]2019 [facility] Venous insufficiency (chronic) (peripher al) VENOUS INSUFFICIENCY (CHRONIC) (PERIPHERAL) Diagnosis 12/15/2019 04:30:[facility].59 Encounter for screening for other viral diseases ENCOUNTER FOR SCREENING FOR OTHER VIRAL DISEASES Diagnosis 12/15/2019 04:30:00 PM [facility] G89.29 Other chronic pain OTHER CHRONIC PAIN Diagnosis 06/2019 04:30:00 PM [facility] M54.5 Low back pain LOW BACK PAIN Diagnosis 12/15/2019 04:30:00 PM [facility] E55.9 Vitamin D deficiency, unspecified VITAMIN D DEFI CIENCY, UNSPECIFIED Diagnosis 12/02/2019 02:10:00 PM [facility] Z13.29 Encounter for screening for other suspec guillermo endocrine disorder ENCOUNTER FOR SCREENING FOR OTH SUSPECTED ENDOCRIN Diagnosis 12/02/2019 02:10:00 PM [facility] E78.49 OTHER HYPERLIPIDEMIA OTHER HYPERLIPIDEMIA Diagnosis 12/02/2019 02:10:00 PM [facility] Surgeries/Procedures Procedure Description Date Indications Data Source(s) DESTRUCTION PREMALIGNANT LESION 1ST 12/05/2020 12:00:0 0 AM EDT [facility] ([facility]) DESTRUCTION PREMALIGNANT LESION 2-14 EA [facility] OFFICE OUTPATIENT VISIT 25 MINUTES 12/05[facility] CARDIAC CATHETERIZATION <td>CARDIAC CATHETERIZATION</td><td>Routine</td><td>01/02/2020 1:46 PM EDT</td><td> Abnormal result of other cardiovascular function study Syncope</td><td> </td> 01/02/2020 05:46:50 PM EDT SyncopeAbnormal result of other cardiovascular functio n study [facility] Syncope Abnormal result of other cardiovascular function study ECG ROUTINE ECG W/LEAST 12 LDS TRCG ONLY W/O I&R <td>E CG 12- LEAD</td><td>Routine</td><td>01/02/2020 12:19 PM EDT</td><td></td><td></td> 01/02/2020 04:19:38 PM EDT [facility] BLOOD COUNT COMPLETE AUTOMATED <td>CBC</td><td>Routine </td><td>01/02/2020 12:00 PM EDT</td><td></td><td> </td> 01/02/2020 04:00:[address] [facility] Left Heart Cath W/Wo LV & Coronary Angiography 020 12:00:00 AM EDT [facility] ([facility]) LAB SCAN <td>LAB SCAN</td><td></td><td>12/28/2019 </td><td></td><td></td> 12/28/2019 12:00:00 AM EDT [facility] Results ID Date Data Source [id number] 02/22/2020 03:06:00 PM EST [facility] Name Value [...] sole basis to diagnose or exclude recent TXLB-JbR-0xdnsoegna. ID Date Data Source [id number] 02/22/2020 03:06:00 PM EST [facility] Name Value Range Interpretation Code Description Data Oksana rce(s) Supporting Document(s) SARS-CoV-2 Antibody, IgG Negative [facility] See [employer] SARS-CoV-2 Ab, IgG ID Date Data Source [id number] 02/22/2020 03:06:00 PM EST [facility] Name Value [...] sole basis to diagnose or exclude recent YNWK-RsU-9epweeonab.This assay was performed using the [employer] Liaison(R)SARS-CoV-2 S1/S2 IgG assay. ID Date Data Source [id number] 02/22/2020 03:06:00 PM EST [facility] Name Value [...] sole basis to diagnose or exclude recent CKIJ-SkT-1gixbfoqde. ID Date Data Source [id number] 02/20/2020 12:13:00 PM EST [facility] [...] FOR SERVICE 01/31/2020 10:52:39 AM EDT eCW1 ([facility]) Name Value Range Interpretation Code Description Data Oksana rce(s) Supporting Document(s) Laboratory studies (set) PAP REQUEST FOR SERVICE eCW1 ([facility]) ID Date Data Source [id number] 01/31/2020 09:05:11 AM EDT eCW1 ([facility]) Name Value Range Interpretation Code Description Data Oksana rce(s) Supporting Document(s) 4.3 CA 125 [facility] ID Date Data Source [id number] 01/02/2020 01:54:[address] [facility] Name Value Range Interpretation Code Description Data Oksana rce(s) Supporting Document(s) &PDF [facility] LNRRLy5dOhBMPpNp03/IEKeeKOBty9AuYQqwTTz1IErcSBNmR3OyyMrlPWIJR4vFBqzRYQKGXPJJFW4n oRX [file] WDIrLChxAQDERz0V ID Date Data Source [id number] 01/02/2020 12:39:[address] [facility] Name Value Range Interpretation Code Description Data Oksana rce(s) Supporting Document(s) EKG [facility] ZJCWYl5gNnGWMaAag1KyTbAkPWRxJF2ccfs4T2X6fSNrY0StrVJcb4ucE1SkZ3CiFYOhEBOBHC1LcSRb jb2 [file] RDoyMDIwMDkyMTEyMzkpIAogICAgICAgICAgICAvVG s8uICgKI0RU5KdTTWsVCDBRKOcjfFoYs8wTDQPK8eBLtaiF7SRFYegUESmURZcDGv0REGwG2XabyRpsX SbTPRRPAyfGpbeZZUidA8alNtoA5ZjFAJ5y5CiCM9RJ4YaSURcMKDNKHH6p6DeBBThwbhnlnyeMtSgLU LaMHMtEWQeOL1Jdj6ulLBasbPkOCBHYKtuVgdeEQ6a vSygaduyH1RsdONyLDA+FhCbYZ5qvn9+BhOxODUsRab7KLPjJLbcYIEzPCHmRACvF2fbJBHaFvBrZHLt LpQeIM6Lj3FvvANvWg1bdpBqNnmNgVZaIiqkVOLvELAdRQGnHqGOSWQuGHDzNVGnAIZ8HTAqGJNmGEyc VURtVCN2CxhoPDFeKGXjRA5sXbAuILNrNWX7SMTwYJ GnHIOvvhPHNEQyHYT0EtSlOIHoZNQuQVGyCLccUVVzVTCfVRUqAJZ6KMM6FRXpShKsZHDeNHEwLNUhFZ RdKDThnkMTOZDvYUZdOTR0EJOnCXDvYYFbPXaxRDXkSWYuBThpRDFtENHdIM9iZoOyMURqMIPkGOfhCP AwMDAgbiAKMDAwMDAwMDQwOSAwMDAwMCBuIAowMDAw YUWoURFlFZLgQKGhIF5zYeHwZQTuRDO5VRFfVLZvRROyauWNRLWeAGFrHLg2YNInHWMqXJGpZXbpXXKf QZGmZTQ9ISIoBLXqWG4jXdZeYFAtTHK9RjEiFCIbHRBdqnPIONWoGSLrHMD8SwEaYAPdFTCkISwqSYLh TCMjVOjkSBRgOVVrTI9gZeWfTOEvHVEmQNmkKQHjWZ UjlqLAZXNeHYLzLFZgMjYdGHHkUYUpKRwmFMUlYHH1SHD1UWKiILWxFQ9mAmTnVKUfLMJ3TTsvZWKiMW ZhckJFLVKoKXHeBHxaZMVhOXJaCBJgXCxwISRkVPArSSY1XQXxXPVvEO0hGtRyNTRxBZYuZZZcTgQ7Ci IaSzTTlXXscNqzfss2ZSaqT7t8FHQxMIguDQ1ajpSf MENxTcwlVq1jkRQ7YIIbHbnQKd1Rf9KeukC0cxAkTyT5ReX6HwZyMZ0F ID Date Data Source [id number] 01/02/2020 12:26:41 PM [facility]T [facility] INFORMATIONPatient MRN Name Date of Age Gend*PT [id number] Woodrow Urban 1945 74 years F HOPPT Location Admission Date/Time Visit ID Attending ProviderCV-[id number] 01/02/20 1121 --- Alejandro Aiken MD([id number]) EPI ID CSN Admitting Provider [id number] Alejandro Aiken MD([id number])Updated H&PPlease see the scanned/dictated outpatient note.I have reviewed the note, clinical history and physical exam findings. Therehave been no significant changes.Plan as outlined in the outpatient note.Risk/benifit/alternative of cardiac catheterization was discussed withpatient/family. Risks included, but not limited to; AK, CVA, , renalimpairment, vascular complication, and need for emergency surgery were discussedand accepted by patient.Alejandro Aiken MD, [facility], [facility] Care Advocate Name Value Range Interpretation Code Description Data Oksana rce(s) Supporting Document(s) ID Date Data Source [id number] 01/02/2020 01:31:37 PM EDT [facility] Name Value Range Interpretation Code Description Data Oksana rce(s) Supporting Document(s) WBC 9.3 10*3/uL (4.1-11.0) [facility] RBC 4.68 10*6/uL (4.00-5.40) [facility] HGB 14.2 g/dL (12.0-16.0) [facility] HCT 43.9 % (36.0-47.0) [facility] [place]FOR[place] [address] [place] [address] MCV 93.8 fL (80.0-95.0) [facility] MCH 30.4 pg (27.0-32.0) [facility] MCHC 32.4 g/dL (32.0-36.0) [facility] RDW 14.1 % (10.5-14.5) [facility] PLT 230 10*3/uL (150-450) [facility] MPV 9.1 fL (7.1-10.7) Lab [facility] MARYELLEN ID Date Data Source [id number] 12/29/2019 02:05:00 PM EDT [facility] Name Value [...] in this assay. ID Date Data Source [id number] 12/28/2019 08:00:00 AM EDT [facility] Name Value Range Interpretation Code Description Data Oksana rce(s) Supporting Document(s) SARS coronavirus 2 RNA [facility] This lab was ordered by [facility] a nd reported by [facility]. ID Date Data Source [id number] 12/29/2019 02:05:00 PM EDT [facility] Name Value Range Interpretation Code Description Data Oksana rce(s) Supporting Document(s) Inpatient [facility] Received ID Date Data Source [id number] 12/29/2019 02:06:00 PM EDT [facility] Name Value Range Interpretation Code Description Data Oksana rce(s) Supporting Document(s) SARS COV2 Not Detected Not Detected [facility] This nucleic acid amplification test was developed [...] SARS-CoV-2 virusand/or diagnosis of COVID-19 infection under [id number](b)(1) of the Act, 21 U.S.C. 360bbb-3(b) (1), [...] in this assay. ID Date Data Source [id number] 12/03/2019 08:06:00 AM EDT [facility] l Name Value Range Interpretation Code Description Data Oksana rce(s) Supporting Document(s) VITAMIN D, 25-HYDROXY 28.2 ng/mL 30.0-100.0 [facility] Vitamin D deficiency has been defined by the [place] of[employer] and an Endocrine Society practice guideline as alevel of serum 25-OH vitamin D less than 20 ng/mL (1,2).The Endocrine Society went on to further define vitamin Dinsufficiency as a level between 21 and 29 ng/mL (2).1. IOM ([place] of [employer]). 2010. Dietary reference intakes for calcium and D. [place]: The National Academies Press.2. Kristie MF, Gaby NC, Ilia SCHMIDT, et al. Evaluation, treatment, and prevention of vitamin D deficiency: an Endocrine Society clinical practice guideline. JCEM. 2010; 96(7):1911- 30.Performed at: - [id number] [id number] Director: Radha Guadalupe MD, Phone: [phone] ID Date Data Source [id number] 12/03/2019 08:06:00 AM EDT [facility] Name Value Range Interpretation Code Description Data Oksana rce(s) Supporting Document(s) Vitamin D, 25-Hydroxy 28.2 ng/mL 30.0-100.0 Below low normal [facility] Vitamin D deficiency has been defined by the [place] of[employer] and an Endocrine Society practice guideline as alevel of serum 25-OH vitamin D less than 20 ng/mL (1,2).The Endocrine Society went on to further define vitamin Dinsufficiency as a level between 21 and 29 ng/mL (2).1. IOM ([place] of [employer]). 2010. Dietary reference intakes for calcium and D. [place]: The National Academies Press.2. Kristie MF, Gaby VILLATORO, Ilia SCHMIDT, et al. Evaluation, treatment, and prevention of vitamin D deficiency: an Endocrine Society clinical practice guideline. JCEM. 2010; 96(7):1911-30. ID Date Data Source [id number] 12/02/2019 03:41:00 PM EDT [facility] l Name Value Range Interpretation Code Description Data [facility] Supporting Document(s) GLUCOSE 89 mg/dL 74-106 [facility] BLOOD UREA NITROGEN 16 mg/dL 7-18 [facility] ital CREATININE 0.8 mg/dL 0.6-1.0 [facility] SODIUM 141 mmol/L 136-145 [facility] POTASSIUM 4.3 mmol/L 3.5-5.1 [facility] CHLORIDE 104 mmol/L 98-107 [facility] CO2 28 mmol/L 21-32 [facility] CALCIUM 9.0 mg/dL 8.5-10.1 [facility] ANION GAP 9.0 mmol/L 5-12 [facility] GLOMERULAR FILTRATION RATE 71 mL/min [facility] GFR IS CALCULATED IN mL/min/1.73m2 KUNAL L FUNCTION: >90MILDLY DECREASED: 60-89MILDY TO MODERATELY DECREASED: 45-59 MODERATELY TO SEVERELY DECREASED: 30-44SEVERELY DECREASED: 15-29RENAL FAILURE: <15 AST 21 U/L 15-37 [facility] ALT 29 U/L 12-78 [facility] ALKALINE PHOSPHATASE 74 U/L 46-116 [facility] pital TOTAL BILIRUBIN 0.4 mg/dL 0.2-1.0 [facility] TOTAL PROTEIN 6.8 g/dl 6.4-8.2 [facility] ALBUMIN 3.6 gm/dL 3.4-5.0 [facility] ID Date Data Source [id number] 12/02/2019 03:26:00 PM EDT [facility] Name Value Range Interpretation Code Description Data Oksana rce(s) Supporting Document(s) FREE T4 1.07 ng/dL 0.76-1.46 [facility] ID Date Data Source [id number] 12/02/2019 03:26:00 PM EDT [facility] Name Value Range Interpretation Code Description Data Oksana rce(s) Supporting Document(s) TSH 1.85 uIU/mL 0.36-3.74 [facility] ID Date Data Source [id number] 12/02/2019 02:37:00 PM EDT [facility] Name Value Range Interpretation Code Description Data Oksana rce(s) Supporting Document(s) WHITE BLOOD COUNT 8.4 K/mm3 4.0-10.0 [facility] RED BLOOD COUNT 4.50 M/mm3 4.00-5.50 [facility] HEMOGLOBIN 13.6 gm/dL 12.0-16.0 [facility] HEMATOCRIT 42.0 % 36.0-48.8 [facility] MEAN CELL VOLUME 93.3 fl 80-96 [facility] MEAN CORPUSCULAR HEMOGLOBIN 30.2 pg 27.0-31.0 [facility] MEAN CORPUSCULAR HGB CONC 32.4 g/dl 32.0-36.0 [facility] RED CELL DISTRIBUTION WIDTH 13.3 % 10.0-14.5 [facility] PLATELET COUNT 236 K/mm3 172-450 [facility] ID Date Data Source [id number] 12/02/2019 03:17:00 PM EDT [facility] FAX [phone] Name Value Range Interpretation Code Description Data Oksana rce(s) Supporting Document(s) CREATINE PHOSPHOKINASE 118 U/L 26-192 [facility] ospital ID Date Data Source [id number] 12/02/2019 03:17:00 PM EDT [facility] l FAX [phone] Name Value Range Interpretation Code Description Data Oksana rce(s) Supporting Document(s) CHOLESTEROL 235 mg/dL 0-200 H [facility] TRIGLYCERIDES 198 mg/dL 0-150 H [facility] LDL CHOLESTEROL 147 mg/dL 0-100 H [facility] HDL CHOLESTEROL 48 mg/dL 40-60 [facility] CHOL/HDL RATIO 4.9 0.0-5.0 [facility] Procedure Social History Code Duration Value Status Description Data Source(s ) Smoking 02/02/2020 12:00:00 AM EDT Never Smoker completed Never S moker eCW1 ([facility]) Smoking 02/02/2020 12:00:00 AM EDT Never Smoker completed Never S moker eCW1 ([facility]) Alcohol intake 01/02/2020 12:00:00 AM EDT Never completed [facility] Smoking 01/02/2020 12:00:00 AM EDT Never smoker completed Never [facility] Vital Signs ID Date Data Source UNK [...] Body height 67 [in_i] 67 [in_i] MEDENT ([facility]) 5'7" Body mass index (BMI) [Ratio] 43.8 kg/m2 43.8 k g/m2 [facility] ([facility]) Body weight 281.0 [lb_av] 281.0 [lb_av] eCW1 ([facility]) Body height 65.5 [in_i] 65.5 [in_i] eCW1 ([facility]) Body mass index (BMI) [Ratio] 46.04 kg/m2 46.04 kg/m2 eCW1 ([facility]) Heart rate 72 /min 72 /min eCW1 ([facility]) Respiratory rate 18 /min 18 /min eCW1 ([facility]) Body temperature 98.1 [degF] 98.1 [degF] eCW1 ( [facility]) Systolic blood pressure 137 mm[Hg] 137 mm[Hg] e CW1 ([facility]) Diastolic blood pressure 70 mm[Hg] 70 mm[Hg] eCW1 ([facility]) Body weight 245 [lb_av] 245 [lb_av] eCW1 ([facility]) Body weight 111.13 kg 111.13 kg eCW1 ([facility]) Body height 65.5 [in_i] 65.5 [in_i] eCW1 ([facility]) Body mass index (BMI) [Ratio] 40.15 kg/m2 40.15 kg/m2 eCW1 ([facility]) Systolic blood pressure 148 mm[Hg] 148 mm[Hg] e CW1 ([facility]) Diastolic blood pressure 78 mm[Hg] 78 mm[Hg] eCW1 ([facility]) Heart rate 83 /min 83 /min MEDENT ([facility] Systolic blood pressure 130 mm[Hg] 130 mm[Hg] M EDENT ([facility]) Diastolic blood pressure 68 mm[Hg] 68 mm[Hg] MEDENT ([facility]) Body weight 270.00 [lb_av] 270.00 [lb_av] MEDEN T ([facility]) Body height 66 [in_i] 66 [in_i] MEDENT ([facility]) 5'6" Body mass index (BMI) [Ratio] 43.6 kg/m2 43.6 k g/m2 MEDENT ([facility]) Oxygen saturation in Arterial blood by Pulse oximetry 98 % 98 % MEDENT ([facility]) Body surface area Derived from formula 2.27 m2 2.27 m2 MEDENT ([facility]) Systolic blood pressure 154 mm[Hg] 154 mm[Hg] [facility] Diastolic blood pressure 59 mm[Hg] 59 mm[Hg] [facility] Heart rate 82 /min 82 /min [facility] Body temperature 36.72 Sonya 36.72 Sonya [facility] Respiratory rate 18 /min 18 /min [facility] Oxygen saturation in Arterial blood by Pulse oximetry 97 % 97 % [facility] Body height 167.[address] [facility] Body weight 124.[address] [facility] Body mass index (BMI) [Ratio] 44.39 kg/m2 44.39 kg/m2 [facility] Patient Treatment Plan of Care Planned Activity Planned Date Details Description Data Source (s) Levetiracetam 1000 MG Oral Tablet 06/17/2019 12:00:00 AM [facility] clopidogrel [address] [facility]
[2021-01-25] MEDS ORDERED: ONDANSETRON 4MG/2ML VIAL As Ordered ONE (20:21)
[2021-01-25] MEDS ORDERED: traMADol 50 MG TAB PO PRN (21:25)
[2021-01-25] MEDS ORDERED: ALBUTEROL SULFATE 2.5 MG/0.5 ML INH NEB SOLN INH PRN (21:25)
[2021-01-25] MEDS ORDERED: LR 1,000 ML IV SCH (21:30)
[2021-01-25] MEDS ORDERED: ONDANSETRON 4MG/2ML VIAL IV PRN (21:30)
[2021-01-25] MEDS ORDERED: fentaNYL 100 MCG/2 ML INJECTION (J3010) IV PRN (21:30)
[2021-01-25] MEDS ORDERED: CHLORTHALIDONE 12.5MG PER 1/2 TABLET PO ONE (21:45)
[2021-01-25 22:15] VITALS: BP 150/71
--- OUTSIDE RECORDS SUMMARY | 2021-01-25 22:16 | CCD ---
Author Author [facility] Organization [facility] Address Unknown Phone Unavailable Care Team Providers Care Line Technician Name Role Phone Lobato, Charles PA Unavailable [...] Lobato, Charles PA Unavailable Unavailable Macsherry, Leatha IRRIGATION SYSTEM OPERATOR Unavailable Unavailable Macsherry, Leatha IRRIGATION SYSTEM OPERATOR Unavailable Unavailable Macsherry, Leatha IRRIGATION SYSTEM OPERATOR Unavailable Unavailable Macsherry, Leatha IRRIGATION SYSTEM OPERATOR Unavailable Unavailable Macsherry, Leatha IRRIGATION SYSTEM OPERATOR Unavailable Unavailable Macsherry, Leatha IRRIGATION SYSTEM OPERATOR Unavailable Unavailable Macsherry, Leatha IRRIGATION SYSTEM OPERATOR Unavailable Unavailable Macsherry, Leatha IRRIGATION SYSTEM OPERATOR Unavailable Unavailable Macsherry, Leatha IRRIGATION SYSTEM OPERATOR Unavailable Unavailable Macsherry, Leatha IRRIGATION SYSTEM OPERATOR Unavailable Unavailable Macsherry, Leatha IRRIGATION SYSTEM OPERATOR Unavailable Unavailable Macsherry, Leatha IRRIGATION SYSTEM OPERATOR Unavailable Unavailable Macsherry, Leatha IRRIGATION SYSTEM OPERATOR Unavailable Unavailable Macsherry, Leatha IRRIGATION SYSTEM OPERATOR Unavailable Unavailable Macsherry, Leatha IRRIGATION SYSTEM OPERATOR Unavailable Unavailable Macsherry, Leatha IRRIGATION SYSTEM OPERATOR Unavailable Unavailable Macsherry, Leatha IRRIGATION SYSTEM OPERATOR Unavailable Unavailable Macsherry, Leatha IRRIGATION SYSTEM OPERATOR Unavailable Unavailable Macsherry, Leatha IRRIGATION SYSTEM OPERATOR Unavailable Unavailable Macsherry, Leatha IRRIGATION SYSTEM OPERATOR Unavailable Unavailable Macsherry, Leatha IRRIGATION SYSTEM OPERATOR Unavailable Unavailable Macsherry, Leatha IRRIGATION SYSTEM OPERATOR Unavailable Unavailable Macsherry, Leatha IRRIGATION SYSTEM OPERATOR Unavailable Unavailable Macsherry, Leatha IRRIGATION SYSTEM OPERATOR Unavailable Unavailable Macsherry, Leatha IRRIGATION SYSTEM OPERATOR Unavailable Unavailable Rosendo Bazzi MD Unavailable [...] Unavailable Rosendo Bazzi MD Unavailable Unavailable Antonietta Rodrigueze PA Unavailable Unavailable Antonietta Rodrigueze PA Unavailable Unavailable Rodriguez Antonietta Desiree PA Unavailable Unavailable Rodriguez Antonietta Desiree PA Unavailable Unavailable Rodriguez, Antonietta Desiree PA Unavailable Unavailable Rodriguez, Antonietta Desiree PA Unavailable Unavailable Rodriguez, Antonietta Desiree PA Unavailable Unavailable Rodriguez Antonietta Desiree PA Unavailable Unavailable Rodriguez, Antonietta [...] Rodriguez, Antonietta Desiree PA Unavailable Unavailable Rodriguez, Antoniteta Desiree PA Unavailable Unavailable Rodriguez, Antonietta Desiree [...] Unavailable Unavailable Rosendo Bazzi MD Unavailable Unavailable Rake, Sera PREPARED FOODS TEAM LEADER Unavailable Unavailable Rake, Sera PREPARED FOODS TEAM LEADER Unavailable Unavailable Rake, Sera PREPARED FOODS TEAM LEADER Unavailable Unavailable Rake, Sera PREPARED FOODS TEAM LEADER Unavailable Unavailable Rake, Sera PREPARED FOODS TEAM LEADER Unavailable Unavailable Rake, Sera PREPARED FOODS TEAM LEADER Unavailable Unavailable Rake, Sera PREPARED FOODS TEAM LEADER Unavailable Unavailable Rake, Sera PREPARED FOODS TEAM LEADER Unavailable Unavailable Rake, Sera PREPARED FOODS TEAM LEADER Unavailable Unavailable Rake, Sera PREPARED FOODS TEAM LEADER Unavailable Unavailable Rake, Sera PREPARED FOODS TEAM LEADER Unavailable Unavailable Rake, Sera PREPARED FOODS TEAM LEADER Unavailable Unavailable Rake, Sera PREPARED FOODS TEAM LEADER Unavailable Unavailable Rake, Sera PREPARED FOODS TEAM LEADER Unavailable Unavailable Rake, Sera PREPARED FOODS TEAM LEADER Unavailable Unavailable Rake, Sera PREPARED FOODS TEAM LEADER Unavailable Unavailable Rake, Sera PREPARED FOODS TEAM LEADER Unavailable Unavailable Rake, Sera PREPARED FOODS TEAM LEADER Unavailable Unavailable Rake, Sera PREPARED FOODS TEAM LEADER Unavailable Unavailable Rake, Sera PREPARED FOODS TEAM LEADER Unavailable Unavailable Rake, Sera PREPARED FOODS TEAM LEADER Unavailable Unavailable Rake, Sera PREPARED FOODS TEAM LEADER Unavailable Unavailable Rake, Sera PREPARED FOODS TEAM LEADER Unavailable Unavailable Rake, Sera PREPARED FOODS TEAM LEADER Unavailable Unavailable Rake, Sera PREPARED FOODS TEAM LEADER Unavailable Unavailable Rake, Sera PREPARED FOODS TEAM LEADER Unavailable Unavailable Rake, Sera PREPARED FOODS TEAM LEADER Unavailable Unavailable Rake, Sera PREPARED FOODS TEAM LEADER Unavailable Unavailable Rake, Srea PREPARED FOODS TEAM LEADER Unavailable Unavailable Rake, Sera PREPARED FOODS TEAM LEADER Unavailable Unavailable Rake, Sera PREPARED FOODS TEAM LEADER Unavailable Unavailable Rake, Sera PREPARED FOODS TEAM LEADER Unavailable Unavailable Rake, Sera PREPARED FOODS TEAM LEADER Unavailable Unavailable Rake, Inez Dooley PREPARED FOODS TEAM LEADER Unavailable Unavailable Rake, Inez Dooley PREPARED FOODS TEAM LEADER Unavailable Unavailable Rake, Sera PREPARED FOODS TEAM LEADER Unavailable Unavailable Cristiano, M Alesha PA-C Unavailable [...] S AYMAN MD Unavailable Unavailable DARELL, S ALEJANDRO VICENTE [...] Unavailable DARELL, S ALEJANDRO VICENTE Unavailable Unavailable DARLEL, S AYAILEEN VICENTE Unavailable Unavailable DARELL, S ALEJANDRO VICENTE Unavailable Unavailable DARELL, S ALEJANDRO VICENTE Unavailable Unavailable DARELL, S ALEJANDRO VICENTE Unavailable Unavailable DARELL, S ALEJANDRO VICENTE Unavailable Unavailable DARELL, S ALEJANDRO VICENTE Unavailable Unavailable DARELL, S ALEJANDRO VICENTE Unavailable Unavailable Marian AIKEN MD Unavailable Unavailable Marian AIKEN MD Unavailable Unavailable DARELL, S ALEJANDRO VICENTE Unavailable Unavailable Marian AIKEN MD Unavailable Unavailable DARELL, S ALEJANDRO VICENTE Unavailable Unavailable DARELLMarian CEJA MD Unavailable Unavailable DARELL S ALEJANDRO VICENTE Unavailable Unavailable DARELLMarian CEJA [...] Unavailable Unavailable DARELLMarian CEJA MD Unavailable Unavailable DARELLMarian CEJA MD Unavailable Unavailable DARELLMarian CEJA MD Unavailable Unavailable DARELL, S ALEJANDRO VICENTE Unavailable Unavailable DARELL, S ALEJANDRO VICENTE Unavailable Unavailable DARELL, S ALEJANDRO VICENTE Unavailable Unavailable DARELLMarian CEJA MD Unavailable Unavailable DARELLMarian CEJA MD Unavailable Unavailable DARELLMarian CEJA MD Unavailable Unavailable DARELLMarian CEJA MD Unavailable Unavailable DARELL, S ALEJANDRO VICENTE Unavailable Unavailable DARELLMarian CEJA MD Unavailable Unavailable DARELLMarian CEJA MD Unavailable Unavailable DARELLMarian CEJA MD Unavailable Unavailable [...] S AYAILEEN VICENTE Unavailable Unavailable DARELL, S AYMAN MD [...] is protected by Article 27-F of the [facility] Public Health law. If you continue you may have access to information: Regarding HIV / AIDS; Provided by facilities licensed or operated by the [facility] Office of Mental Health; or Provided by the [facility] Office for People With Developmental Disabilities. If such information is present, then the following [facility] mandated warning applies: This information has [...] law may result in a fine or nursing home sentence or both. A general authorization for the release of medical or other information is NOT sufficient authorization for further disc losure. Allergies and Adverse Reactions Type Description Substance Reaction Status Data Source(s ) Propensity to adverse reactions ACETAMINOPHEN Acetaminophen Active [facility] Propensity to adverse reactions TETRACYCLINES & RELATED Tetracyc lines & Related Active [facility] Propensity to adverse reactions TETANUS TOXOIDS Tetanus Toxoids Active [facility] Propensity to adverse reactions BACITRACIN-POLYMYXIN B Bacitraci n-Polymyxin B Rash Low Active [facility] Low Propensity to adverse reactions CELECOXIB celecoxib Rash Low Acti ve [facility] Low Encounters Encounter Providers Location Date Indications Data Source(s ) Emergency Attender: Charles Lobato PAReferrer: Alesha pettit PA-C 01/25/2021 04:31:00 PM EDT - 01/25/2021 04:31:00 PM EDT [facility] Patient discharged. Outpatient Attender: Alesha Quinonez PA-C 01/16/2021 02:00 :00 PM EDT [facility] Outpatient Attender: Soumya Ha PREPARED FOODS TEAM LEADER Main Office 12/05/2020 01:00:00 PM EDT [facility] Outpatient Attender: Alesha Quinonez PA-C 06/07/2020 11:30 :00 AM [facility] Admission cancelled. Disregard status an d admitted date. Outpatient Attender: Alesha LERMACReferrer: Alesha Quinonez PA-C 02/20/2020 11:10:00 AM [facility] - 02/20/2020 11:10:00 AM [facility] Outpatient [address] [facility] [address] 02/02/2020 12:00:00 AM EDT eCW1 ([facility]) Outpatient Attender: Rosendo Bazzi MDReferrer: LIZ LEI 02/02/2020 12:00:00 AM EDT [facility] ( [place]) [facility] Yearly X RAY TECH Exam [address] [place] [address] 01/30/2020 12:00:00 AM EDT eCW1 ([facility]) Outpatient Attender: APOLINAR DEE [facility] 01/17/2020 03:00:00 PM EDT [facility] ([facility]) Outpatient Attender: ALEJANDRO AIKEN MDAdmitter: ALEJANDRO AGUIRRE MD ES1-SJ.CVAU 01/02/2020 11:21:00 AM EDT - 01/02/2020 04:20:00 PM EDT [facility] Patient discharged. Outpatient Attender: ALEJANDRO AIKEN MDReferrer: Bonnie Quinonez PA-C EMERGENCY ROOM-LAB REF 12/28/2019 07:27:00 AM EDT - 12/28/2019 07:27:00 AM [facility] Admission cancelled. Disregard status an d admitted date. Outpatient Attender: Alesha Quinonez PA-C 12/15/2019 04:30 :00 PM [facility] Outpatient Attender: Alesha DEE-CReferrer: Desiree DEE EMERGENCY ROOM-LAB 12/02/2019 02:18:00 PM EDT - 12/02/2019 02:18:00 PM [facility] Outpatient Attender: APOLINAR VILLEDA PAReferrer: Tyshawn DEE EMERGENCY ROOM-LABOTHPROV 12/02/2019 02:10:00 PM EDT - 12/02/2019 02:10:00 PM [facility] Outpatient Attender: Alesha Quinonez PA-C 11/25/2019 03:00 :00 PM [facility] Outpatient Attender: Rosendo Bazzi MDConsultant: Leatha Rivera NP 11/08/2019 02:26:00 PM EDT - 11/08/2019 03:26:00 PM T [facility] Patient discharged. Emergency Attender: MICHELLE Paganerrer: Tyshawn DEE EMERGENCY ROOM-ER 05/25/2019 11:14:00 AM EST - 05/25/2019 03:31:00 PM [facility] Patient discharged. Immunizations Vaccine Date Status Description Data Source(s) COVID-19 VACCINE Moderna 07/02/2020 12:00:00 AM EDT completed [employer] Vaccine Series Complete: YESThis Data wa s Submitted to [facility] Via [employer]. COVID-19 VACCINE, MRNA-1273, LNP-S (MODERNA)/PF 07/02/2020 1 2:00:00 AM EDT completed [facility] COVID-19 VACCINE, MRNA-1273, LNP-S (MODERNA)/PF 06/07/2020 1 2:00:00 AM EST completed [facility] Medications Medication Brand Name Start Date Product Form Dose Route Admi nistrative Instructions Pharmacy Instructions Status Indications Reaction Description Data Source(s) Nystatin 278720 UNT/ML Topical Cream Nystatin 12/05/2020 12:00:00 AM [...] WITH FOOD FOR 7 DAYS SOLD: 02/21/2020 [facility] sodium chloride 0.9% (NS) infusion 2679-7714-42 01/02/2020 03:00:00 PM EDT 75 mL/h Intravenous active at 75 mL /hr, 75 mL/hr, Intravenous, Continuous, Starting Thu01/02/20 at 1500, For 2 hours, Post-op [facility] Medication administered onsite normal saline flush 0.9 % injection 3 mL 33410-080-10 01/02/2020 02:00:00 PM EDT 3 mL Intravenous active 3 mL , Intravenous, Every 8 hours (scheduled), First dose on Thu01/02/20 at 1400, Pre-op
Rapid push positive pressure flushing shall be performed with a 10 cc normal saline syringe to check the PATENCY of a PIV site prior to any infusion therapy initiation unless resistance is met.
[facility] Medication administered onsite normal saline flush 0.9 % injection 3 mL 28201-931-78 01/02/2020 02:00:00 PM EDT 3 mL Intravenous active 3 mL , Intravenous, PROTOCOL, First dose on Thu01/02/20 at 1400, Pre-op
flush per protocol, D/C Main IV fluid if appropriate
[facility] Medication administered onsite iopamidol (ISOVUE-370) 76 % 26768 01/02/2020 01:47:00 PM EDT active As needed, Starting Thu01/02/20 at 1347, Intra-Procedu re [facility] Medication administered onsite 1 ML heparin sodium, porcine 1000 UNT/ML Injection hep ara (porcine) injection heparin (porcine) injection 01/02/2020 01:41:31 PM EDT active As needed, Starting Thu01/02/20 at 1341, Intra-Procedure [facility] Medication administered onsite 4 ML Verapamil hydrochloride 2.5 MG/ML Injection verap akin (ISOPTIN) injection verapamil (ISOPTIN) injection 01/02/2020 01:41:22 PM EDT active As needed, Starting Thu01/02/20 at 1341, Intra-Procedure [facility] Medication administered onsite lidocaine 1 % injection 7731-8763-58 01/02/2020 01:40:38 PM EDT active As needed, Starting Thu01/02/20 at 1340, Intra-Procedure [facility] Medication administered onsite fentaNYL Citrate (PF) (SUBLIMAZE) injection 4595-4862-25 01/02/2020 01:30:55 PM EDT active As neede d, Starting Thu01/02/20 at 1330, Intra-Procedure [facility] Medication administered onsite 2 ML Midazolam 1 MG/ML Injection midazolam (VERSED) in jection midazolam (VERSED) injection 01/02/2020 01:30:41 PM EDT active As needed, Starting Thu01/02/20 at 1330, Intra-Procedure [facility] Medication administered onsite sodium chloride 0.9% (NS) infusion 3127-3013-03 01/02/2020 01:00:00 PM EDT 100 mL/h Intravenous active at 100 m L/hr, 100 mL/hr, Intravenous, Continuous, Starting Thu01/02/20 at 1300, Pre-op
Start two hours prior to scheduled start time
[facility] Medication administered onsite clopidogrel 75 MG Oral [...] days, THEN 1 tablet Two Times Daily.. [facility] clopidogrel 75 MG Oral Tablet clopidogrel (PLAVIX) 75 MG tablet clopidogrel (PLAVIX) 75 MG tablet 75 mg Oral aborted Take 75 mg by mouth daily 5 tabs pre procedure [facility] Insurance Providers Payer name Policy type / Coverage type Policy ID Covered republican ID Covered republican's relationship to potts Policy Potts Plan Information MEDICARE [id number] Christine [id number] U27 MEDICARE [id number] xxxxxxxxxxx [id number] MEDICARE A [id number] Self [id number] U27 Medicare P [id number] S [id number] A UMR [id number] Christine [id number] UMR U [id number] Self [id number] UMR [id number] xxxxxxxxx [id number] MEDICARE PART A -O/P [id number] 18 [id number] UMR -O/P [id number] 18 [id number] UMR -O/P [id number] 18 [id number] ANSI-Commercial [id number] [facility]-Medicare Part B [id number] [facility] [id number] ANSI-Commercial [id number] ANSI-Commercial [id number] ANSI-Medicare Part B [id number] ANSI-Commercial [id number] ANSI-Medicare Part B [id number] ANSI-Medicare Part B [id number] ANSI-Commercial [id number] ANSI-Medicare Part B [id number] ANSI-Commercial [id number] ANSI-Commercial [id number] ANS-Medicare Part B [id number] UMR O [id number] S [id number] MEDICARE [id number] S [id number] U27 [employer] PPO O [id number] S [id number] MEDICARE C [id number] S [id number] A [employer] [id number] SP [id number] MEDICARE [id number] SP [id number] A Sliding Fee Scale P [id number] S [id number] [employer] [id number] SP [id number] UMR [facility] [id number] SP [id number] Sliding Fee Scale P UNAVAILABLE S UNAVAILABLE MEDICARE [id number] SP [id number] [id number] UMR [id number] S [id number] [employer] [id number] S [id number] MEDICARE - [place] [id number] S [id number] UMR [id number] S [id number] [employer] [id number] S [id number] MEDICARE - [place] [id number] S [id number] Problems, Conditions, and Diagnoses Code Display Name Description Problem Type Effective Dates Data Source(s) J45.20 Mild intermittent asthma, uncomplicated MILD INTERMITTENT ASTHMA, UNCOMPLICATED Diagnosis 06/07/2020 11:30:00 AM [facility] l R06.02 Shortness of breath SHORTNESS OF BREATH Diagnosis 1 04/21/2019 11:10:00 AM [facility] Z13.220 Encounter for screening for lipoid disor ders ENCOUNTER FOR SCREENING FOR LIPOID DISOR Diagnosis 02/20/2020 11[facility]10:[facility] Syncope and collapse Syncope and collapse Diagnosis 01/02/2020 11:21:00 AM EDT [facility] R94.39 Abnormal result of other cardiovascular function study Abnormal result of other cardiovascular Diagnosis 01/02/2020 11:21:00 AM EDT [facility] Z01.818 Encounter for other preprocedural examin ation ENCOUNTER FOR OTHER PREPROCEDURAL EXAMIN Diagnosis 12/28/2019 07:27[facility]ous insufficiency (chronic) (peripher al) VENOUS INSUFFICIENCY (CHRONIC) (PERIPHERAL) Diagnosis 12/15[facility]2019 [facility] Encounter for screening for other viral diseases ENCOUNTER FOR SCREENING FOR OTHER VIRAL DISEASES Diagnosis 12/15/2019 04:30:00 PM [facility] G89.29 Other chronic pain OTHER CHRONIC PAIN Diagnosis 06/2019 04:30:00 PM [facility] M54.5 Low back pain LOW BACK PAIN Diagnosis 12/15/2019 04:30:00 PM [facility] E55.9 Vitamin D deficiency, unspecified VITAMIN D DEFI CIENCY, UNSPECIFIED Diagnosis 12/02/2019 02:10:00 PM [facility] Z13.29 Encounter for screening for other suspec guillermo endocrine disorder ENCOUNTER FOR SCREENING FOR OTH SUSPECTED ENDOCRIN Diagnosis 12/02/2019 02:10:00 PM [facility] E78.49 OTHER HYPERLIPIDEMIA OTHER HYPERLIPIDEMIA Diagnosis 12/02/2019 02:10:00 PM [facility] Surgeries/Procedures Procedure Description Date Indications Data Source(s) DESTRUCTION PREMALIGNANT LESION 1ST 12/05/2020 12:00:0 0 AM EDT [facility] ([facility]) DESTRUCTION PREMALIGNANT LESION 2-14 [facility]2020 [facility] OFFICE OUTPATIENT VISIT 25 MINUTES 12/05/2020 12:00:00 AM EDT [facility] ([facility]) CARDIAC CATHETERIZATION <td>CARDIAC CATHETERIZATION</td><td>Routine</td><td>01/02/2020 1:46 PM EDT</td><td> Abnormal result of other cardiovascular function study Syncope</td><td> </td> 01/02/2020 05:46:50 PM EDT SyncopeAbnormal result of other cardiovascular functio n study [facility] Syncope Abnormal result of other cardiovascular function study ECG ROUTINE ECG W/LEAST 12 LDS TRCG ONLY W/O I&R <td>E CG 12- LEAD</td><td>Routine</td><td>01/02/2020 12:19 PM EDT</td><td></td><td></td> 01/02/2020 04:19:38 PM EDT [facility] BLOOD COUNT COMPLETE AUTOMATED <td>CBC</td><td>Routine </td><td>01/02/2020 12:00 PM EDT</td><td></td><td> </td> 01/02/2020 04:00:00 PM EDT [facility] Left Heart Cath W/Wo LV & Coronary Angiography 020 12:00:00 AM EDT [facility] ([facility]) LAB SCAN <td>LAB SCAN</td><td></td><td>12/28/2019 </td><td></td><td></td> 12/28/2019 12:00:00 AM EDT [facility] Results ID Date Data Source [id number] 01/25/2021 06:17:00 PM EDT [facility] Patient: WOODROW URBAN Rep ort - [facility]VisitID: [id number] [place] [address] [phone], FRegistration Date/Time: 01/25/2021 15:44 Weight:127 kg (S). Height/Length:67 inches (S). BMI:43.9 FAMILY HISTORY(non contributory). (Electronically signed by Charles Lobato PA-C 01/25/2021 17:41) Name Value Range Interpretation Code Description Data Oksana rce(s) Supporting Document(s) ID Date Data Source [id number] 02/22/2020 03:06:00 PM EST [facility] Name Value [...] sole basis to diagnose or exclude recent [id number]. ID Date Data Source [id number] 02/22/2020 03:06:00 PM EST [facility] Name Value Range Interpretation Code Description Data Oksana rce(s) Supporting Document(s) SARS-CoV-2 Antibody, IgG Negative [facility] See [employer] SARS-CoV-2 Ab, IgG ID Date Data Source [id number] 02/22/2020 03:06:00 PM EST [facility] Name Value [...] sole basis to diagnose or exclude recent [id number].This assay was performed using the [employer] Liaison(R)SARS-CoV-2 S1/S2 IgG assay. ID Date Data Source [id number] 02/22/2020 03:06:00 PM EST [facility] Name Value [...] sole basis to diagnose or exclude recent [id number]. ID Date Data Source [id number] 02/20/2020 12:13:00 PM EST [facility] [...] FOR SERVICE 01/31/2020 10:52:39 AM EDT eCW1 ([facility]) Name Value Range Interpretation Code Description Data Oksana rce(s) Supporting Document(s) Laboratory studies (set) PAP REQUEST FOR SERVICE eCW1 ([facility]) ID Date Data Source [id number] 01/31/2020 09:05:11 AM EDT eCW1 ([facility]) Name Value Range Interpretation Code Description Data Oksana rce(s) Supporting Document(s) 4.3 CA 125 eCW1 (Count includes the [facility]) ID Date Data Source [id number] 01/02/2020 01:54:28 PM EDT [facility] Name Value Range Interpretation Code Description Data Oksana rce(s) Supporting Document(s) &PDF [facility] [id number]/ZFNfbOGLiq0NpVUneFUq8TEepCTQrS3CjzHuxMJZQN3nQWutHFJXDSUWRUD8y oRX [file] [id number] ID Date Data Source [id number] 01/02/2020 12:39:28 PM EDT [facility] Name Value Range Interpretation Code Description Data Oksana rce(s) Supporting Document(s) EKG [facility] [id number]VjOL7ciie8X2U5jFNqT2BuxGWpn6yuQ0IeC3EfSJFiQSLNIL1TnKDg jb2 [file] RDoyMDIwMDkyMTEyMzkpIAogICAgICAgICAgICAvVG k3jNQpMZ8QB8YyKIDwEUASLQBnlrTdSu8fFIXAI6oNRtrzW2XYCAkoTCDsGKHoUWx6SRWlC8VtzwBvgU UvMHBLLTtdKxsgFJQroR4feTxpG5UiAAN1p6OoHU1ZE0OmSQGiZULUCPO1m2MsAQMwlmcnnfgwEcVxMV TzJOHfVAYyJZ0Xfc4kcEAassYvYJDIZJtrWaxgBH4k eGzeuveiG3ZrqHKnSZS+UvAzMB7atp9+BaUmTZMpRoj6FYYdROjkTYUeTDInOSMkA1umKWNeZzEyCIOw IeQbSJ9Zs7RzbDTxRa9zasWsQjiVeKAaIwezBDGcCWVkKBEpWjAULRRdHYTuASUuFCS2AOIjDSYfAZov OUUxMCH7HjlnFBPrIGZpEC0oDdPzXPNfJTW5PREkIV IjQVJbeyALPKJbLOH7EzDwJLWoSUKtJDTfRCbgGMCaEWMpIYCgPUO8MJU6CMUjLeOkIWQiFYCaDJBaZT StRMVrydDDVAEsAGDeIZW6DWGdNIBkYRGmGCbeIGHfBWLtAMxeHVGzNVYxVV1kGoQlQNPtLCGpQUtmCI AwMDAgbiAKMDAwMDAwMDQwOSAwMDAwMCBuIAowMDAw IMWwNXPxKXWeOOXqPX5mXbNoAKQpQPS1XBYoTFDzVVLjfvUURVKwNAIoSQp3KDUwXVKmSIZaGCxfBRGl ZYKyKGD1YDWpLPUsEP9jOmVtODJiDEG3RyQtREOhTFPuwwHJRCWaZXJhCBJ4BrFcTKPpAMIlPMcyRYPu NTAtBXjvBIXdCBDnUH4lCqNcNPScIQMaJXdrKQYmBT RguxPUKFGfMBWwBLJjKbRfXTSpZBGsHHrlRMGxIQH6DHU2RXUiIXCzKJ5uPvYtDFUrPOT8LNieULRaJF DlskBFFADnQMDcHUtqIEJdXRBaVWGcQLvcAOXnDRUzQZP4EEPgUSNfQJ4zIeWfVUYzVFEhHKSmWzR5Bp UpDcFYqTLjtRwxqrh6YEnjJ6p5STStHTnvPD9atfXl IUPsXpyjOy5egLD5ZQAjUqeNGa6Kz9BydqS5qgWrHvN5SpE2DpXaEJ6S ID Date Data Source [id number] 01/02/2020 12:26:[address] INFORMATIONPatient MRN Name Date of Age Gend*PT [id number] Woodrow Urban F 1945 74 years F HOPPT Location Admission Date/Time Visit ID Attending [id number] 01/02/20 1121 --- Alejandro Aiken MD([id number]) EPI ID CSN Admitting Provider [id number] Alejandro Aiken MD([id number])Updated H&PPlease see the scanned/dictated outpatient note.I have reviewed the note, clinical history and physical exam findings. Therehave been no significant changes.Plan as outlined in the outpatient note.Risk/benifit/alternative of cardiac catheterization was discussed withpatient/family. Risks included, but not limited to; AK, CVA, , renalimpairment, vascular complication, and need for emergency surgery were discussedand accepted by patient.Alejandro Aiken MD, [facility], [facility] FAIRVIEWAIInterventional Rental Representative Name Value Range Interpretation Code Description Data Oksana rce(s) Supporting Document(s) ID Date Data Source [id number] 01/02/2020 01:31:37 PM EDT [facility] MARVINY Name Value Range Interpretation Code Description Data Oksana rce(s) Supporting Document(s) WBC 9.3 10*3/uL (4.1-11.0) [facility] [place] RBC 4.68 10*6/uL (4.00-5.40) [facility] [place] HGB 14.2 g/dL (12.0-16.0) [facility] HCT 43.9 % (36.0-47.0) [facility] [place] [address] [place] [address] MCV 93.8 fL (80.0-95.0) [facility] MCH 30.4 pg (27.0-32.0) [facility] MCHC 32.4 g/dL (32.0-36.0) [facility] RDW 14.1 % (10.5-14.5) [facility] PLT 230 10*3/uL (150-450) [facility] MPV 9.1 fL (7.1-10.7) [facility] [place] ID Date Data Source [id number] 12/29/2019 02:05:00 PM EDT [facility] Name Value Range Interpretation Code Description Data Oksana rce(s) Supporting Document(s) SARS-CoV-2, NIXON Not Detected Not Detected [facility] This nucleic acid amplification test was developed and its performancecharacteristics determined by [employer]. Nucleic acidamplification tests include PCR and TMA. [...] in this assay. ID Date Data Source [id number] 12/28/2019 08:00:00 AM EDT [facility] Name Value Range Interpretation Code Description Data Oksana rce(s) Supporting Document(s) SARS coronavirus 2 RNA [facility] This lab was ordered by [facility] a nd reported by [facility]. ID Date Data Source [id number] 12/29/2019 02:05:00 PM EDT [facility] Name Value Range Interpretation Code Description Data Oksana rce(s) Supporting Document(s) Inpatient [facility] Received ID Date Data Source [id number] 12/29/2019 02:06:00 PM EDT [facility] Name Value Range Interpretation Code Description Data Oksana rce(s) Supporting Document(s) SARS COV2 Not Detected Not Detected [facility] This nucleic acid amplification test was developed [...] SARS-CoV-2 virusand/or diagnosis of COVID-19 infection under waivpuc159(b)(1) of the Act, 21 U.S.C. 360bbb-3(b) (1), [...] in this assay. ID Date Data Source [id number] 12/03/2019 08:06:00 AM EDT [facility] Name Value Range Interpretation Code Description Data Oksana rce(s) Supporting Document(s) VITAMIN D, 25-HYDROXY 28.2 ng/mL 30.0-100.0 [facility] Vitamin D deficiency has been defined by the [place] [employer] and an Endocrine Society practice guideline as alevel of serum 25-OH vitamin D less than 20 ng/mL (1,2).The Endocrine Society went on to further define vitamin Dinsufficiency as a level between 21 and 29 ng/mL (2).1. IOM ([place] [employer]). 2010. Dietary reference intakes for calcium and D. [place]: The National Academies Press.2. Gaby Torres, Ilia SCHMIDT, et al. Evaluation, treatment, and prevention of vitamin D deficiency: an Endocrine Society clinical practice guideline. JCEM. 2010; 96(7):1911- 30.Performed at: RN - [facility] [address] [id number] Director: Radha Guadalupe MD, Phone: [phone] ID Date Data Source [id number] 12/03/2019 08:06:00 AM EDT [facility] Name Value Range Interpretation Code Description Data Oksana rce(s) Supporting Document(s) Vitamin D, 25-Hydroxy 28.2 ng/mL 30.0-100.0 Below low normal [facility] Vitamin D deficiency has been defined by the [place] [employer] and an Endocrine Society practice guideline as alevel of serum 25-OH vitamin D less than 20 ng/mL (1,2).The Endocrine Society went on to further define vitamin Dinsufficiency as a level between 21 and 29 ng/mL (2).1. IOM ([place] [employer]). 2010. Dietary reference intakes for calcium and D. [place]: The National Academies Press.2. Gaby Torres, Ilia SCHMIDT, et al. Evaluation, treatment, and prevention of vitamin D deficiency: an Endocrine Society clinical practice guideline. JCEM. 2010; 96(7):1911-30. ID Date Data Source [id number] 12/02/2019 03:41:00 PM EDT [facility] l Name Value Range Interpretation Code Description Data Oksana rce(s) Supporting Document(s) GLUCOSE 89 mg/dL 74-106 [facility] BLOOD UREA NITROGEN 16 mg/dL 7-18 [facility] ital CREATININE 0.8 mg/dL 0.6-1.0 [facility] SODIUM 141 mmol/L 136-145 [facility] POTASSIUM 4.3 mmol/L 3.5-5.1 [facility] CHLORIDE 104 mmol/L 98-107 [facility] CO2 28 mmol/L 21-32 [facility] CALCIUM 9.0 mg/dL 8.5-10.1 [facility] ANION GAP 9.0 mmol/L 5-12 [facility] GLOMERULAR FILTRATION RATE 71 mL/min [facility] GFR IS CALCULATED IN mL/min/1.73m2 KUNAL L FUNCTION: >90MILDLY DECREASED: 60-89MILDY TO MODERATELY DECREASED: 45-59 MODERATELY TO SEVERELY DECREASED: 30-44SEVERELY DECREASED: 15-29RENAL FAILURE: <15 AST 21 U/L 15-37 [facility] ALT 29 U/L 12-78 [facility] ALKALINE PHOSPHATASE 74 U/L 46-116 [facility] pital TOTAL BILIRUBIN 0.4 mg/dL 0.2-1.0 [facility] TOTAL PROTEIN 6.8 g/dl 6.4-8.2 [facility] ALBUMIN 3.6 gm/dL 3.4-5.0 [facility] ID Date Data Source [id number] 12/02/2019 03:26:00 PM EDT [facility] Name Value Range Interpretation Code Description Data Oksana rce(s) Supporting Document(s) FREE T4 1.07 ng/dL 0.76-1.46 [facility] ID Date Data Source [id number] 12/02/2019 03:26:00 PM EDT [facility] Name Value Range Interpretation Code Description Data Oksana rce(s) Supporting Document(s) TSH 1.85 uIU/mL 0.36-3.74 [facility] ID Date Data Source [id number] 12/02/2019 02:37:00 PM EDT [facility] l Name Value Range Interpretation Code Description Data Okasna rce(s) Supporting Document(s) WHITE BLOOD COUNT 8.4 K/mm3 4.0-10.0 [facility]LOOD [facility] 4.50 M/mm3 4.00-5.50 [facility] HEMOGLOBIN 13.6 gm/dL 12.0-16.0 [facility] HEMATOCRIT 42.0 % 36.0-48.8 [facility] MEAN CELL VOLUME 93.3 fl 80-96 [facility] MEAN CORPUSCULAR HEMOGLOBIN 30.2 pg 27.0-31.0 [facility] MEAN CORPUSCULAR HGB CONC 32.4 g/dl 32.0-36.0 [facility] RED CELL DISTRIBUTION WIDTH 13.3 % 10.0-14.5 [facility] PLATELET COUNT 236 K/mm3 172-450 [facility] ID Date Data Source [id number] 12/02/2019 03:17:00 PM EDT [facility] FAX [phone] Name Value Range Interpretation Code Description Data Oksana rce(s) Supporting Document(s) CREATINE PHOSPHOKINASE 118 U/L 26-192 [facility] ospital ID Date Data Source [id number] 12/02/2019 03:17:00 PM EDT [facility] FAX [phone] Name Value Range Interpretation Code Description Data Oksana rce(s) Supporting Document(s) CHOLESTEROL 235 mg/dL 0-200 H [facility] TRIGLYCERIDES 198 mg/dL 0-150 H [facility] LDL CHOLESTEROL 147 mg/dL 0-100 H [facility] HDL CHOLESTEROL 48 mg/dL 40-60 [facility] CHOL/HDL RATIO 4.9 0.0-5.0 [facility] Procedure Social History Code Duration Value Status Description Data Source(s ) Smoking 02/02/2020 12:00:00 AM EDT Never Smoker completed Never S frederick eCW1 ([facility]) Smoking 02/02/2020 12:00:00 AM EDT Never Smoker completed Never S sdihsan eC1 ([facility]) Alcohol intake 01/02/2020 12:00:00 AM EDT Never completed [facility] Smoking 01/02/2020 12:00:00 AM EDT Never smoker completed Never s [facility] Vital Signs ID Date Data Source UNK Name Value Range Interpretation Code Description Data Source(s) Systolic blood pressure 133 mm[Hg] 133 mm[Hg] M EDRUEL ([facility]) Diastolic blood pressure 62 mm[Hg] 62 mm[Hg] MEDRUEL ([facility]) Body weight 280.00 [lb_av] 280.00 [lb_av] MEDEN T ([facility]) Body height 67 [in_i] 67 [in_i] TATY ([facility]) 5'7" Body mass index (BMI) [Ratio] 43.8 kg/m2 43.8 k g/m2 MEDENT ([facility]) Body weight 281.0 [lb_av] 281.0 [lb_av] eCW1 ([facility]) Body height 65.5 [in_i] 65.5 [in_i] eCW1 ([facility]) Body mass index (BMI) [Ratio] 46.04 kg/m2 46.04 kg/m2 eCW1 ([facility]) Heart rate 72 /min 72 /min eCW1 ([facility]) Respiratory rate 18 /min 18 /min eCW1 ([facility]) Body temperature 98.1 [degF] 98.1 [degF] eCW1 ( [facility]) Systolic blood pressure 137 mm[Hg] 137 mm[Hg] e CW1 ([facility]) Diastolic blood pressure 70 mm[Hg] 70 mm[Hg] eCW1 ([facility]) Body weight 245 [lb_av] 245 [lb_av] eCW1 ([facility]) Body weight 111.13 kg 111.13 kg eCW1 ([facility]) Body height 65.5 [in_i] 65.5 [in_i] eCW1 ([facility]) Body mass index (BMI) [Ratio] 40.15 kg/m2 40.15 kg/m2 eCW1 ([facility]) Systolic blood pressure 148 mm[Hg] 148 mm[Hg] e CW1 ([facility]) Diastolic blood pressure 78 mm[Hg] 78 mm[Hg] eCW1 ([facility]) Heart rate 83 /min 83 /min MEDENT ([facility] Systolic blood pressure 130 mm[Hg] 130 mm[Hg] M EDENT ([facility]) Diastolic blood pressure 68 mm[Hg] 68 mm[Hg] MEDENT ([facility]) Body weight 270.00 [lb_av] 270.00 [lb_av] MEDEN T ([facility]) Body height 66 [in_i] 66 [in_i] MEDENT ([facility] 5'6" Body mass index (BMI) [Ratio] 43.6 kg/m2 43.6 k g/m2 MEDENT ([facility]) Oxygen saturation in Arterial blood by Pulse oximetry 98 % 98 % MEDENT ([facility]) Body surface area Derived from formula 2.27 m2 2.27 m2 MEDENT ([facility]) Systolic blood pressure 154 mm[Hg] 154 mm[Hg] [facility] Diastolic blood pressure 59 mm[Hg] 59 mm[Hg] [facility] Heart rate 82 /min 82 /min [facility] Body temperature 36.72 Sonya 36.72 Sonya [facility] Respiratory rate 18 /min 18 /min [facility] Oxygen saturation in Arterial blood by Pulse oximetry 97 % 97 % [facility] Body height 167.6 cm 167.6 cm [facility] Body weight 124.739 kg 124.739 kg [facility] Body mass index (BMI) [Ratio] 44.39 kg/m2 44.39 kg/m2 [facility] Patient Treatment Plan of Care Planned Activity Planned Date Details Description Data Source (s) Levetiracetam 1000 MG Oral Tablet 06/17/2019 12:00:00 AM [facility] clopidogrel 75 MG Oral Tablet [facility]
[2021-01-25 22:45] VITALS: BP 160/90
[2021-01-25 23:15] VITALS: BP 145/70
[2021-01-25] MEDS ORDERED: PROAAER10 INH (23:55)
[2021-01-25] MEDS ORDERED: ASPI-1 PO (23:55)
[2021-01-25] MEDS ORDERED: PRED10TA2 PO (23:55)
[2021-01-25] MEDS ORDERED: ALBU83IN NEB (23:55)
[2021-01-25] MEDS ORDERED: PULM90IN INH (23:55)
[2021-01-25] MEDS ORDERED: FISH1000 PO (23:55)
[2021-01-26] VITALS (9 sets, daily range): BP systolic 119–158; BP diastolic 58–73
[2021-01-26] MEDS ORDERED: HOME MED LIST COMPLETE! XX SCH
[2021-01-26] MEDS: ALBUTEROL SULFATE 2.5 MG/0.5 ML INH NEB SOLN INH SCH ×5 (00:11→15:29)
[2021-01-26] MEDS: ceFAZolin SOD 1 GM in D5W MINI-BAG PLUS 50 ML IV SCH ×2 (02:54→11:28)
[2021-01-26] MEDS: IBUPROFEN 400MG TAB PO PRN ×2 (05:52→13:39)
--- NOTE | 2021-01-26 07:59 | REP ---
INDICATION: Post pacemaker implant COMPARISON: None. TECHNIQUE: Portable AP view of the chest FINDINGS: Newly placed pacemaker with leads overlying right atrium and right ventricle. Right hemithorax is well aerated and clear. Left hemithorax is limited in evaluation due to technique/positioning and trace left basilar atelectasis cannot be excluded. No significant effusion or focal consolidation. No pneumothorax. Skeletal structures are intact. IMPRESSION: Limited evaluation cannot exclude trace left basilar atelectasis. No pneumothorax. <Electronically signed by Andrés Isaacs > 01/26/21 0083
[2021-01-26] MEDS ORDERED: BUDESONIDE 0.5 MG/2 ML INHALATION SUSPENSION INH SCH (08:00)
--- NOTE | 2021-01-26 08:23 | REP ---
INDICATION: Post pacemaker implant COMPARISON: 01/25/2021 TECHNIQUE: PA and lateral. FINDINGS: The mediastinum and cardiac silhouette are normal. Recently placed pacemaker in stable satisfactory position. The lung rubin are clear and without acute consolidation, effusion, or pneumothorax. The skeletal structures are intact and normal. IMPRESSION: No acute cardiopulmonary process. Pacemaker in stable position. <Electronically signed by Andrés Isaacs > 01/26/21 0819
[2021-01-26] MEDS ORDERED: ASPIRIN ENTERIC 325 MG TAB PO SCH (09:00)
--- NOTE | 2021-01-26 10:21 | RO ---
OPERATIVE NOTE DATE OF OPERATION: 01/25/2021 PREOPERATIVE DIAGNOSIS: 1. Complete heart block. POSTOPERATIVE DIAGNOSIS: 1. Complete heart block. PROCEDURE: Implantation of dual-chamber permanent pacemaker. IMPLANTING GRAPHIC ARTS TECHNICIAN: Toby Rodney M.D. SERIALS LIBRARIAN: ANESTHESIOLOGIST: Dr. Aung Pringle ANESTHESIA: Monitored local anesthesia. CLINICAL SUMMARY: This 75-year-old, mother of two grown children, resident of [place], [place] is followed by the [facility] medical clinic for multiple problems includng morbid obesity, asthmatic bronchitis, gastroesophageal reflux disease, degenerative joint disease and for "intermittent seizures." For the past year, these episodes have been fairly sporadic, unpredictable. Previous investigation of potential cardiac origin was apparently negative including cardiac catheterization which showed no obstructive coronary disease. In the past three days, she has had increasing weakness and shortness of breath and she was taken to [facility] ER this afternoon. Initial vital signs demonstrated a profoundly slow heart rate. EKG confirmed complete heart block with a venticular escape rhythm of 24 beats per minute. The patient was given atropine IV without response followed by external transcutaneous pacing system which fortunately worked well. Established a rhythm at 70 beats per minute. Systolic BP was approximately 100 mmHg. O2 saturation of 96% on room air. Portable upright chest x-ray showed nomal appearing heart size for this technique with normal greater vessels and normal pulmonary vasculature. Lung rubin were clear with no infiltrate, pleural effusion or pneumthorax. No significant bony abnormality. EKG showed underlying snus rhythm at approximately 100 beats per minute with complete heart block and escape QRS complexes showing a marked rightward axis and right bundle branch block morphology. No sign of prior infarction. No hyperacute ST/T wave abnormality. Blood work showed hemoglobin of 12.5 with a leukocytosis of 14.5, normal platelet count. PT/PTT were normal. Electrolytes were normal with BUN 29, creatinine 1.15, estimated glumeroinfiltration rate 46 mL per minute. Random glucose was 107. SGOT and SGPT were minimally increased, normal alkaline phosphatase, normal albumin of 3.4. Ultrasensitive TSH was not performed but troponin I level was within normal limits. The primary physician in the emergency room at [facility] ER contacted me to arrange for urgent transfer and permanent dual chamber pacemaker implant. Upon her arrival in our emergency room, she was seemngly comfortable supine position wearing supplemental oxygen by nasal prongs, morbidly obese, stocky, elderly lady, bright and alert and gave a lucid history. Heart rate was 70 beats per minute and regular with irregularities, blood pressure 148/76 supine position, respiratory rate 16, O2 saturation 96% on supplemental oxygen by nasal prongs and two liters per minute. She was afebrile. Weight 127 kilograms, height 67 inches, BMI 43.9. No obviuos pallor or cyanosis. Trachea was midline. Neck veins appear to be elevated 3 cm above the sternal angle. Increased anterior-posterior chest diameter with adequate chest expansion and good air entry of both lung rubin with no current abnormal adventious sounds. Her apical pulse was not palpable. Heart sounds were very distant. No audible murmur. Carotid upstrokes were normal with a reduced volume but no bruits. Upper extremity pulses were normal. Her abdominal aorta was not palpable because of obesity and with her femoral pulses. Pedal pulses were difficult to palpate because of pedal edema. Pitting edema up to the level of her knees bilaterally. Obese and soft abdomen, unable to assess her organomegaly. Normal bowel sounds. DESCRIPTION OF PROCEDURE: The patient has been fasting since 12:30. Followng informed consent and Ancef 2 gm IV premedication, she was taken to the operating theater. Numerous skin electrodes were applied to facilitate continuous electrocardiograph monitoring. The transcutaneous pacing patches remained in position with a bedside pacing device. The left subclavian region was prepped and draped in the usual fashion and the skin was infiltrated with 1% Xylocaine. We attempted to catheterize the left axillary and left subclavian vein with some difficulty. We ultimately used 10 mL of isopaque contrast to assist our venipuncture which was ultimately successful. Clearly more difficult because of her obesity and significant chest wall thickness. A 5 cm linear incision was then made several cm below and parallel to the left clavicle. Dissection was carried down to the level of the pectoralis fascia and a pocket was fashioned below the level of the incision line. Two bipolar screw-in active fixation steroid-eluting pacing leads were then advanced to the distal right ventricular septum and high right atrial appendage under fluoroscopic electrocardiographic control. The venticular lead ([employer], model #LPA 1200M/52, serial number [id number]) were focal in stimulation of 0.8 V/0.4 ms/impedance 634 ohms. Her initial R wave amplitude measured 10 mV. Her atrial lead ([employer], model number [id number], serial number [id number]) measrements were focal and simulation threshold 1.0 V/0.4 ms/impedance 468 ohms. Her P wave amplitude initially was 1.8 mV. Each lead was secured in position with a sleeve suture at their insertion site. They were then connected to a dual chamber pulse generator ([employer] MRI compatible, model number PM 2272, serial number [id number]) and appropriate DDD pacing was documented. At this point, her transcutaneous pacing system was inactivated. Her new pulse generator was then placed into the pocket and secured in position with a suture through the upper right-hand corner of the epoxy header. The subcutaneous tissues were approximated using a running Chromic suture and the skin was closed using rut. A dry dressing was applied and the patient was returned to the recovery room in good condition. COMPLICATIONS: No apparent complications. ESTIMATED BLOOD LOSS: 10 ml Postoperative upright chest x-ray showed no pneumothorax with good lead position. Her EKG showed consistent sinus rhythm with atrial sensing and tracking with consistent ventricular pacing, having a fairly normal axis and left bundle branch block pattern in keeping with distal septal pacing. Our plan is to monitor her overnight and she will receive an additional three doses of Ancef IV q.8h. We will plan on interrogating her device again tomorrow morning as well as obtain a followup PA with lateral chest x-ray and EKG. We are confident she will be able to be discharged tomorrow afternoon. JARRED
[2021-01-26] MEDS ORDERED: CHLO125TA PO (15:34)
[2021-01-26] MEDS ORDERED: LISI10TA22 PO (15:34)
--- NOTE | 2021-01-26 16:33 | IPN ---
CARDIOLOGY PROGRESS NOTE DATE: 01/25/2021 SUBJECTIVE: The patient claims not to have too much incisional discomfort following her pacemaker implant yesterday. Has been up to use the commode at the bedside without any further episodes of dizziness or faintness. Clearly, her paroxysmal complete heart block was responsible for her previously diagnosed "seizure disorder," not a central nervous rhythm disturbance. Denies other cardiovascular complaints at this time. OBJECTIVE: Pleasant, bright, obese, elderly lady laying comfortable with the head of the bed elevated 30 degrees. Heart rate 72 beats per minute and regular, blood pressure 132/65 on her current combination antihypertensive therapy. Respiratory rate was 18, with oxygen saturation 94% on room air. She was afebrile. Weight 309.5 pounds. Height 67 inches. Body mass index (BMI) 47.1. No pallor or cyanosis. Trachea midline. Neck veins appear to be slightly elevated, at least 3-4 cm with again, nonpitting and pitting edema, at least up to her knees bilaterally. Increased anteroposterior chest diameter with symmetrical air entry of both lung rubin and no abnormal pulmonary adventitious sounds. Apical impulse not palpable. Heart sounds distant. I changed her dressing today, which shows minimal bloody drainage with very little swelling and no erythema. A dry dressing was applied. PHARMACY INFORMATICS SPECIALIST: This shows appropriate pacer function with her underlying sinus rhythm with appropriately sensed atrial activity and it was tracked properly with consistent ventricular pacing. Her EKG shows the same, with QRS complexes showing a normal frontal axis and left bundle branch block pattern in keeping with distal right ventricular septal stimulation. Configuration is unchanged from tracing last evening immediately following device implant. CHEST X-RAY: PA and left lateral study earlier today was reviewed independently and shows at least borderline cardiomegaly, with CT ratio measuring 15.8:3.7. Slightly unfolded thoracic aorta. Pulmonary vasculature appeared to be minimally congested. Accentuated interstitial markings, I believe, are related to under-penetration with her obesity. No localized infiltrate or effusion. Her dual chamber pacemaker pulse generator is sitting in her left pectoral region and her two bipolar screw and active fixation pacing leads were positioned in the distal right ventricular septum and the high right atrial appendage, as we had seen immediately following the implant yesterday. CHEMISTRY: No blood work was obtained today. IMPRESSION/PLAN: 1. Essential hypertension: Based on serial measurements here in the hospital, there is no question she has hypertension, and I suspect this may account for her at least borderline cardiomegaly. Chief limitation is primarily orthopedic, with hip and knee arthralgia and weakness, not shortness of breath. We will plan on obtaining an echocardiogram/Doppler study as an outpatient to further define cardiac chamber sizes and function. We have emphasized the importance of following a no added salt diet as well as a low carbohydrate diet to help with weight loss. Also encouraged her to be as active as she can tolerate with her orthopedic problems. Her medications on discharge will also include lisinopril 10 mg by mouth twice a day, with chlorthalidone 5 mg tables, 1/2 tablet daily. We will plan on a clinic visit in 7-10 days, with a chemistry check the day before she comes to see us. 2. Complete heart block: Has been known to have baseline right bundle branch block for some time and I have no doubt that her supposed "seizure disorder" she has experienced the past year have been Bond-Glynn attacks related to paroxysmal complete heart block and severe bradyarrhythmia. Impressively, she was able to tolerate, at least briefly, markedly slow heart rate in the 20s at the ghislaine she came to hospital. Her permanent pacemaker implant was complicated only in light of her morbid obesity. The device is working appropriately. Incision appears to be healing well. She has excellent intracardiac electrograms and pacing thresholds. We were able to reduce her atrial pacing output to further prolong battery longevity, which is currently estimated at 10 years. When she comes for her clinic visit in 7-10 days, we will be checking her wound and removing her rut. Until then, we have requested that she perform only light activities of daily living with that left arm and avoid getting her incision wet. 3. Abnormal EKG: Despite multiple coronary risk factors, we understand recent cardiac catheterization showed no evidence of obstructive coronary disease. I suspect her conduction tissue disease was related to her age and chronic hypertension, likely aggravated by her morbid obesity and left ventricular strain. 4. Morbid obesity (body mass index (BMI) 47): According to our records from 2018, she has been known to have hypercholesterolemia with value as high as 260. At that time, HDL was 49 with ratio of 5.2. She did not show glucose intolerance. Her glycosylated hemoglobin was 5.7 at that time. We have emphasized the importance of weight loss, as every pound she loses would be expected to improve her quality and length of life. 5. Asthmatic bronchitis: She has been receiving albuterol every 4 hours here, along with her Pulmicort. We have stopped her prednisone, as her bouts of shortness of breath she has been experiencing recently, I believe, have been related to her paroxysmal complete heart block and bradyarrhythmia. I have no doubt she may have an element of cardiac asthma. Her longstanding obesity and hypertension likely have caused left ventricular diastolic dysfunction, with enlargement of her left atrium. As mentioned above, we will obtain an echocardiogram/Doppler study to more objectively define cardiac chamber sizes and function, as well as pulmonary arterial pressure. I find it hard to believe that she does not have pulmonary hypertension likely related to sleep disturbance. We will be letting her go home at this time and my office will be contacting her on Thursday with her followup appointment. We have sent her prescription for lisinopril and chlorthalidone to her pharmacy. She will continue her albuterol nebulizer therapy four times a day as needed, her Pulmicort 90 mcg per inhalation, two puffs twice a day, her aspirin at 325 mg daily, her omega 3 fatty acids 1000 mg daily, but her prednisone therapy has been discontinued.
--- NOTE | 2021-01-27 08:52 | ECGEPIP ---
[facility] Test Date: 2021-01-25 Pat Name: WOODROW CARNEY Department: Room: [place] [address] Gender: Female Telecommunications Project Manager: EDWIN COFFMAN : 1945 Requested By: Toby Rodney Order Number: [id number] Reading MD: Ze Chandra Measurements Intervals [place] Rate: 73 P: 65 MS: 192 QRS: 86 QRSD: 152 T: -22 QT: 464 QTc: 511 Interpretive Statements Atrial-sensed ventricular-paced rhythm Electronically Signed on 01-27-2021 8:52:20 EDT by Ze Chandra
--- NOTE | 2021-01-27 08:52 | ECGEPIP ---
[facility] Test Date: 2021-01-25 Pat Name: WOODROW CARNEY Department: Room: [place] [address] Gender: Female Machine Packer: constanza : 1945 Requested By: Toby Rodney Order Number: [id number] Reading MD: Ze Chandra Measurements Intervals [place] Rate: 83 P: 61 VA: 164 QRS: 95 QRSD: 180 T: -22 QT: 478 QTc: 561 Interpretive Statements Normal sinus rhythm with sinus arrhythmia Rightward axis Left bundle branch block Comparison tracing not on file Tracing shows some v-paced beats, but stebbins beats are identical- I suspect all b beats are v-paced. Repeat as clinically indicated. Electronically Signed on 01-27-2021 8:51:44 EDT by Ze Chandra
--- NOTE | 2021-01-27 09:10 | ECGEPIP ---
[facility] Test Date: 2021-01-26 Pat Name: WOODROW CARNEY Department: Room: [place] [address] Gender: Female Sample Wrapper: EDWIN COFFMAN : 1945 Requested By: Toby Rodney Order Number: [id number] Reading MD: Ze Chandra Measurements Intervals [place] Rate: 80 P: 56 [place]: 160 QRS: 94 QRSD: 148 T: -24 QT: 434 QTc: 500 Interpretive Statements Normal sinus rhythm Rightward axis Left bundle branch block This tracing shows only one captured beat - it is quite similar to tracing done a at 21:34 on 01-25-21 Electronically Signed on 01-27-2021 9:10:01 EDT by Ze Chandra
--- OUTSIDE RECORDS SUMMARY | 2021-01-28 12:38 | CCD ---
Author Author [facility] Organization [facility] Address Unknown Phone Unavailable Care Team Providers Care Coordinate Measuring Machine Technician Name Role Phone Lobato, Charles PA Unavailable Unavailable Lobato, Charles PA Unavailable Unavailable Lobato, Charles PA Unavailable Unavailable Lobato, Charles PA Unavailable Unavailable Lobato, Charles PA Unavailable Unavailable Lobato, Charles PA Unavailable Unavailable Lobato, Charles PA Unavailable Unavailable Lobato, Charles PA Unavailable Unavailable Lobato, Charlse PA Unavailable Unavailable Lobato, Charles PA Unavailable Unavailable Lobato, Charles PA Unavailable Unavailable Lobato, Charles PA Unavailable Unavailable Lobato, Charles PA Unavailable Unavailable Macsherry, Leatha SCRAP DEALER Unavailable Unavailable Macsherry, Leatha SCRAP DEALER Unavailable Unavailable Macsherry, Leatha SCRAP DEALER Unavailable Unavailable Macsherry, Leatha SCRAP DEALER Unavailable Unavailable Macsherry, Leatha SCRAP DEALER Unavailable Unavailable Macsherry, Leatha SCRAP DEALER Unavailable Unavailable Macsherry, Leatha SCRAP DEALER Unavailable Unavailable Macsherry, Leatha SCRAP DEALER Unavailable Unavailable Macsherry, Leatha SCRAP DEALER Unavailable Unavailable Macsherry, Leatha SCRAP DEALER Unavailable Unavailable Macsherry, Leatha SCRAP DEALER Unavailable Unavailable Macsherry, Leatha SCRAP DEALER Unavailable Unavailable Macsherry, Leatha SCRAP DEALER Unavailable Unavailable Macsherry, Leatha SCRAP DEALER Unavailable Unavailable Macsherry, Leatha SCRAP DEALER Unavailable Unavailable Macsherry, Leatha SCRAP DEALER Unavailable Unavailable Macsherry, Leatha SCRAP DEALER Unavailable Unavailable Macsherry, Leatha SCRAP DEALER Unavailable Unavailable Macsherry, Leatha SCRAP DEALER Unavailable Unavailable Macsherry, Leatha SCRAP DEALER Unavailable Unavailable Macsherry, Leatha SCRAP DEALER Unavailable Unavailable Macsherry, Leatha SCRAP DEALER Unavailable Unavailable Macsherry, Leatha SCRAP DEALER Unavailable Unavailable Macsherry, Leatha SCRAP DEALER Unavailable Unavailable Macsherry, Leatha SCRAP DEALER Unavailable Unavailable Rosendo Bazzi MD Unavailable Unavailable [...] Unavailable Unavailable Antonietta Rodrigueze PA Unavailable Unavailable RodriguezAntonietta Desiree PA Unavailable Unavailable Rodriguez Antonietta Desiree [...] Rodriguez, Antonietta Desiree PA Unavailable Unavailable Rodriguez, Anotnietta Desiree PA Unavailable Unavailable Rodriguez, Antonietta Desiree [...] J APOLINAR PA Unavailable Unavailable CHRISTIANA, J APOLIANR PA Unavailable Unavailable CHRISTIANA, J APOLINAR PA [...] Unavailable Unavailable Rosendo Bazzi MD Unavailable Unavailable Vigo, Sera DISTRIBUTION CLERK Unavailable Unavailable Vigo, Sera DISTRIBUTION CLERK Unavailable Unavailable Vigo, Sera DISTRIBUTION CLERK Unavailable Unavailable Vigo, Sera DISTRIBUTION CLERK Unavailable Unavailable Vigo, Sera DISTRIBUTION CLERK Unavailable Unavailable Vigo, Sera DISTRIBUTION CLERK Unavailable Unavailable Vigo, Sera DISTRIBUTION CLERK Unavailable Unavailable Vigo, Sera DISTRIBUTION CLERK Unavailable Unavailable Vigo, Sera DISTRIBUTION CLERK Unavailable Unavailable Vigo, Sera DISTRIBUTION CLERK Unavailable Unavailable Vigo, Sera DISTRIBUTION CLERK Unavailable Unavailable Vigo, Sera DISTRIBUTION CLERK Unavailable Unavailable Vigo, Srea DISTRIBUTION CLERK Unavailable Unavailable Vigo, Esra DISTRIBUTION CLERK Unavailable Unavailable Vigo, Sera DISTRIBUTION CLERK Unavailable Unavailable Vigo, Sera DISTRIBUTION CLERK Unavailable Unavailable Vigo, Sera DISTRIBUTION CLERK Unavailable Unavailable Vigo, Sera DISTRIBUTION CLERK Unavailable Unavailable Vigo, Sera DISTRIBUTION CLERK Unavailable Unavailable Vigo, Sera DISTRIBUTION CLERK Unavailable Unavailable Vigo, Sera DISTRIBUTION CLERK Unavailable Unavailable Vigo, Sera DISTRIBUTION CLERK Unavailable Unavailable Vigo, Sera DISTRIBUTION CLERK Unavailable Unavailable Vigo, Sera DISTRIBUTION CLERK Unavailable Unavailable Vigo, Sera DISTRIBUTION CLERK Unavailable Unavailable Vigo, Sera DISTRIBUTION CLERK Unavailable Unavailable Vigo, Sera DISTRIBUTION CLERK Unavailable Unavailable Vigo, Sera DISTRIBUTION CLERK Unavailable Unavailable Vigo, Sera DISTRIBUTION CLERK Unavailable Unavailable Vigo, Sera DISTRIBUTION CLERK Unavailable Unavailable Vigo, Sera DISTRIBUTION CLERK Unavailable Unavailable Vigo, Sera DISTRIBUTION CLERK Unavailable Unavailable Vigo, Inez Dooley DISTRIBUTION CLERK Unavailable Unavailable Vigo, Inez Dooley DISTRIBUTION CLERK Unavailable Unavailable Vigo, Inez Dooley DISTRIBUTION CLERK Unavailable Unavailable Vigo, Sera DISTRIBUTION CLERK Unavailable Unavailable Cristiano, M Alesha PA-C Unavailable [...] S ALEJANDRO VICENTE Unavailable Unavailable DARELL, S LAEJANDRO VICENTE Unavailable Unavailable DARELL, S ALEJANDRO VICENTE Unavailable Unavailable DARELL, S ALEJANDRO VICENTE Unavailable Unavailable DARELL, S ALEJANDRO VICENTE Unavailable Unavailable DARELL, S ALEJANDRO VICENTE Unavailable Unavailable DARELL, S ALEJANDRO VICENTE Unavailable Unavailable DARELL, S ALEJANDRO VICENTE Unavailable Unavailable DARELL S ALEJANDRO VICNETE Unavailable Unavailable DARELL, S ALEJANDRO VICENTE Unavailable Unavailable DARELL, S ALEJANDRO VICENTE Unavailable Unavailable Marian AIKEN MD Unavailable Unavailable Marian AIKEN MD Unavailable Unavailable Marian AIKEN MD Unavailable Unavailable Marian AIKEN MD Unavailable Unavailable Marian AIKEN MD Unavailable Unavailable Marian AIKEN MD Unavailable Unavailable DARELLMarian CEJA MD Unavailable Unavailable Marian AIKEN MD Unavailable Unavailable Marian AIKEN MD Unavailable Unavailable DARELLMarian CEJA MD Unavailable Unavailable DARELLMarian CEJA MD Unavailable Unavailable DARELLMarian CEJA MD Unavailable Unavailable DARELLMarian CEJA MD Unavailable Unavailable Marian AIKEN MD Unavailable Unavailable Marian AIKEN MD Unavailable Unavailable DARELLMarian CEJA MD Unavailable [...] Article 27-F of the [facility] Public Health law. If you continue you may have access to information: Regarding HIV / AIDS; Provided by facilities licensed or operated by the [facility] Office of Mental Health; or Provided by the [facility] Office for People With Developmental Disabilities. If such information is present, then the following [facility] mandated warning applies: This information has [...] law may result in a fine or longterm sentence or both. A general authorization for the release of medical or other information is NOT sufficient authorization for further disc losure. Allergies and Adverse Reactions Type Description Substance Reaction Status Data Source(s ) Propensity to adverse reactions ACETAMINOPHEN Acetaminophen Active [facility] Propensity to adverse reactions TETRACYCLINES & RELATED Tetracyc lines & Related Active [facility] Propensity to adverse reactions TETANUS TOXOIDS Tetanus Toxoids Active [facility] Propensity to adverse reactions BACITRACIN-POLYMYXIN B Bacitraci n-Polymyxin B Rash Low Active [facility] Low Propensity to adverse reactions CELECOXIB celecoxib Rash Low Acti ve [facility] Low Encounters Encounter Providers Location Date Indications Data Source(s ) Emergency Attender: Charles DUENASeferrer: Marisela Quinonez PA-C EMERGENCY ROOM-EMERGENCY ROOM 01/25/2021 04:31:00 PM EDT - 01/25/2021 04:31:00 PM [facility] Patient discharged. Outpatient Attender: Alesha Quinonez PA-C [facility] Soumya Ha [facility] Main Office 12/05/2020 01:00:00 PM EDT [facility] Outpatient Attender: Alesha Quinonez PA-C 06/07/2020 11:30 :00 AM [facility] Admission cancelled. Disregard status an d admitted date. Outpatient Attender: Alesha Stoneferrer: Alesha Quinonez PA-C 02/20/2020 11:10:00 AM [facility] - 02/20/2020 11:10:00 AM [facility] Outpatient [address] [facility] [address] 02/02/2020 12:00:00 AM EDT eCW1 ([facility]) Outpatient Attender: Rosendo Bazzi MDReferrer: LIZ LEI 02/02/2020 12:00:00 AM EDT [facility] ( [place]) [facility] Yearly [employer] Exam [address] [place] [address] 01/30/2020 12:00:00 AM EDT eCW1 ([facility]) Outpatient Attender: APOLINAR DEE [facility] 01/17/2020 03:00:00 PM EDT [facility] ([facility]) Outpatient Attender: ALEJANDRO AIKEN MDAdmitter: ALEJANDRO AGUIRRE MD [email or web address] 01/02/2020 11:21:00 AM EDT - 01/02/2020 04:20:00 PM EDT [facility] Patient discharged. Outpatient Attender: ALEJANDRO AIKEN MDReferrer: Bonnie Quinonez PA-C EMERGENCY ROOM-LAB REF 12/28/2019 07:27:00 AM EDT - 12/28/2019 07:27:00 AM [facility] Admission cancelled. Disregard status an d admitted date. Outpatient Attender: Alesha Quinonez PA-C 12/15/2019 04:30 :00 PM [facility] Outpatient Attender: Alesha LERMACReferrer: Desiree DEE EMERGENCY ROOM-LAB 12/02/2019 02:18:00 PM EDT - 12/02/2019 02:18:00 PM [facility] Outpatient Attender: APOLINAR VILLEDA PAReferrer: Tyshawn DEE EMERGENCY ROOM-LABOTHPROV 12/02/2019 02:10:00 PM EDT - 12/02/2019 02:10:00 PM [facility] Outpatient Attender: Alesha Quinonez PA-C 11/25/2019 03:00 :00 PM [facility] Outpatient Attender: Rosendo Bazzi MDConsultant: Leatha Rivera NP 11/08/2019 02:26:00 PM EDT - 11/08/2019 03:26:00 PM [facility] Patient discharged. Emergency Attender: MICHELLE Bernsteiner: Tyshawn DEE EMERGENCY ROOM-ER 05/25/2019 11:14:00 AM EST - 05/25/2019 03:31:00 PM [facility] Patient discharged. Immunizations Vaccine Date Status Description Data Source(s) COVID-19 VACCINE Moderna 07/02/2020 12:00:00 AM EDT completed [facility] Vaccine Series Complete: YESThis Data wa s Submitted to [facility] Via [employer]. COVID-19 VACCINE, MRNA-1273, LNP-S (MODERNA)/PF 07/02/2020 1 2:00:00 AM EDT completed [facility] COVID-19 VACCINE, MRNA-1273, LNP-S (MODERNA)/PF 06/07/2020 1 2:00:00 AM EST completed [facility] Medications Medication Brand Name Start Date Product Form Dose Route Admi nistrative Instructions Pharmacy Instructions Status Indications Reaction Description Data Source(s) Nystatin 292662 UNT/ML Topical Cream Nystatin 12/05/2020 12:00:00 AM [...] [facility] sodium chloride 0.9% (NS) infusion 7331-2958-45 01/02/2020 03:00:00 PM EDT 75 mL/h Intravenous active at 75 mL /hr, 75 mL/hr, Intravenous, Continuous, Starting Thu01/02/20 at 1500, For 2 hours, Post-op [facility] Medication administered onsite normal saline flush 0.9 % injection 3 mL 29678-665-58 01/02/2020 02:00:00 PM EDT 3 mL Intravenous active 3 mL , Intravenous, Every 8 hours (scheduled), First dose on Thu01/02/20 at 1400, Pre-op
Rapid push positive pressure flushing shall be performed with a 10 cc normal saline syringe to check the PATENCY of a PIV site prior to any infusion therapy initiation unless resistance is met.
[facility] Medication administered onsite normal saline flush 0.9 % injection 3 mL 85256-933-04 01/02/2020 02:00:00 PM EDT 3 mL Intravenous active 3 mL , Intravenous, PROTOCOL, First dose on Thu01/02/20 at 1400, Pre-op
flush per protocol, D/C Main IV fluid if appropriate
[facility] Medication administered onsite iopamidol (ISOVUE-370) 76 % 01847 01/02/2020 01:47:00 PM EDT active As needed, Starting Thu01/02/20 at 1347, Intra-Procedu re [facility] Medication administered onsite 1 ML heparin sodium, porcine 1000 UNT/ML Injection hep ara (porcine) injection heparin (porcine) injection 01/02/2020 01:41:31 PM EDT active As needed, Starting Thu01/02/20 at 1341, Intra-Procedure [facility] Medication administered onsite 4 ML Verapamil hydrochloride 2.5 MG/ML Injection verap akin (ISOPTIN) injection verapamil (ISOPTIN) injection 01/02/2020 01:41:22 PM EDT active As needed, Starting Thu01/02/20 at 1341, Intra-Procedure [facility] Medication administered onsite lidocaine 1 % injection 2719-5612-22 01/02/2020 01:40:38 PM EDT active As needed, Starting Thu01/02/20 at 1340, Intra-Procedure [facility] Medication administered onsite fentaNYL Citrate (PF) (SUBLIMAZE) injection 2322-5026-11 01/02/2020 01:30:55 PM EDT active As neede d, Starting Thu01/02/20 at 1330, Intra-Procedure [facility] Medication administered onsite 2 ML Midazolam 1 MG/ML Injection midazolam (VERSED) in jection midazolam (VERSED) injection 01/02/2020 01:30:41 PM EDT active As needed, Starting Thu01/02/20 at 1330, Intra-Procedure [facility] Medication administered onsite sodium chloride 0.9% (NS) infusion 4829-5630-84 01/02/2020 01:00:00 PM EDT 100 mL/h Intravenous active at 100 m L/hr, 100 mL/hr, Intravenous, Continuous, Starting Thu01/02/20 at 1300, Pre-op
Start two hours prior to scheduled start time
[facility] Medication administered onsite clopidogrel 75 MG Oral [...] days, THEN 1 tablet Two Times Daily.. [facility] clopidogrel 75 MG Oral Tablet clopidogrel (PLAVIX) 75 MG tablet clopidogrel (PLAVIX) 75 MG tablet 75 mg Oral aborted Take 75 mg by mouth daily 5 tabs pre procedure [facility] Insurance Providers Payer name Policy type / Coverage type Policy ID Covered green party ID Covered green party's relationship to potts Policy Potts Plan Information MEDICARE [id number] Christine [id number] U27 MEDICARE [id number] xxxxxxxxxxx [id number] MEDICARE A [id number] Self [id number] U27 Medicare P [id number] S [id number] A UMR [id number] Christine [id number] UMR U [id number] Self [id number] UMR [id number] xxxxxxxxx [id number] MEDICARE PART A -O/P [id number] 18 [id number] UMR -O/P [id number] 18 [id number] UMR -O/P [id number] 18 [id number] ANSI-Commercial [id number] [facility]-Medicare Part B [id number] [facility] Part B [id number] ANSI-Commercial [id number] ANSI-Commercial [id number] ANSI-Medicare Part B [id number] ANSI-Commercial [id number] ANSI-Medicare Part B [id number] ANSI-Medicare Part B [id number] ANSI-Commercial [id number] ANSI-Medicare Part B [id number] ANSI-Commercial [id number] ANSI-Commercial [id number] ANS-Medicare Part B [id number] UMR O [id number] S [id number] MEDICARE C [id number] S [id number] [employer] PPO O [id number] S [id number] MEDICARE C [id number] S [id number] A [employer] [id number] SP [id number] MEDICARE [id number] SP [id number] A Sliding Fee Scale P [id number] S [id number] [facility] [id number] SP [id number] UMR [facility] [id number] SP [id number] Sliding Fee Scale P UNAVAILABLE S UNAVAILABLE MEDICARE [id number] SP [id number] [id number] UMR [id number] S [id number] [employer] [id number] S [id number] MEDICARE - [place] [id number] S [id number] UMR [id number] S [id number] [employer] [id number] S [id number] MEDICARE [place] [id number] S [id number] Problems, Conditions, and Diagnoses Code Display Name Description Problem Type Effective Dates Data Source(s) J45.20 Mild intermittent asthma, uncomplicated MILD INTERMITTENT ASTHMA, UNCOMPLICATED Diagnosis 06/07/2020 11:30:00 AM [facility] l R06.02 Shortness of breath SHORTNESS OF BREATH Diagnosis 1 04/21/2019 11:10:00 AM [facility] Z13.220 Encounter for screening for lipoid disor ders ENCOUNTER FOR SCREENING FOR LIPOID DISOR Diagnosis 02/20/2020 11:10:00 AM [facility] l R55 Syncope and collapse Syncope and collapse Diagnosis 01/02/2020 11:21:00 AM EDT [facility] R94.39 Abnormal result of other cardiovascular function study Abnormal result of other cardiovascular Diagnosis 01/02/2020 11:21:00 AM EDT [facility] Z01.818 Encounter for other preprocedural examin ation ENCOUNTER FOR OTHER PREPROCEDURAL EXAMIN Diagnosis 12/28/2019 07:27:[facility] Venous insufficiency (chronic) (peripher al) VENOUS INSUFFICIENCY (CHRONIC) (PERIPHERAL) Diagnosis 12/15/2019 04[facility]30[facility]59 Encounter for screening for other viral diseases ENCOUNTER FOR SCREENING FOR OTHER VIRAL DISEASES Diagnosis 12/15/2019 04:30:00 PM [facility] spital G89.29 Other chronic pain OTHER CHRONIC PAIN Diagnosis 06/2019 04:30:00 PM [facility] M54.5 Low back pain LOW BACK PAIN Diagnosis 12/15/2019 04:30:00 PM [facility] E55.9 Vitamin D deficiency, unspecified VITAMIN D DEFI CIENCY, UNSPECIFIED Diagnosis 12/02/2019 02:10:00 PM [facility] Z13.29 Encounter for screening for other suspec guillermo endocrine disorder ENCOUNTER FOR SCREENING FOR OTH SUSPECTED ENDOCRIN Diagnosis 12/02/2019 02:10:00 PM [facility] E78.49 OTHER HYPERLIPIDEMIA OTHER HYPERLIPIDEMIA Diagnosis 12/02/2019 02:10:00 PM [facility] Surgeries/Procedures Procedure Description Date Indications Data Source(s) DESTRUCTION PREMALIGNANT LESION 1ST 12/05/2020 12:00:0 0 AM EDT [facility] ([facility] Nurse Practitioners) DESTRUCTION PREMALIGNANT LESION 2-14 EA 12/05/2020 12: 00:00 AM EDT [facility] ([facility] Nurse [facility]) OFFICE OUTPATIENT VISIT 25 MINUTES 12/05/2020 12:00:00 AM EDT [facility] ([facility] Practition[facility]) CARDIAC CATHETERIZATION <td>CARDIAC CATHETERIZATION</td><td>Routine</td><td>01/02/2020 1:46 PM EDT</td><td> Abnormal result of other cardiovascular function study Syncope</td><td> </td> 01/02/2020 05:46:50 PM EDT SyncopeAbnormal result of other cardiovascular functio n study [facility] Syncope Abnormal result of other cardiovascular function study ECG ROUTINE ECG W/LEAST 12 LDS TRCG ONLY W/O I&R <td>E CG 12- LEAD</td><td>Routine</td><td>01/02/2020 12:19 PM EDT</td><td></td><td></td> 01/02/2020 04:19:38 PM EDT [facility] BLOOD COUNT COMPLETE AUTOMATED <td>CBC</td><td>Routine </td><td>01/02/2020 12:00 PM EDT</td><td></td><td> </td> 01/02/2020 04:00:00 PM EDT [facility] Left Heart Cath W/Wo LV & Coronary Angiography 020 12:00:00 AM EDT [facility] ([facility]) LAB SCAN <td>LAB SCAN</td><td></td><td>12/28/2019 </td><td></td><td></td> 12/28/2019 12:00:00 AM EDT [facility] Results ID Date Data Source [id number] 01/25/2021 06:17:00 PM EDT [facility] Patient: [employer] Rep ort [facility].VisitID: [id number] [place] [address] [phone], FRegistration Date/Time: 01/25/2021 15:44 Weight:127 kg (S). Height/Length:67 inches (S). BMI:43.9 FAMILY HISTORY(non contributory). (Electronically signed by Charles Lobato PA-C 01/25/2021 17:41) Name Value Range Interpretation Code Description Data Oksana rce(s) Supporting Document(s) ID Date Data Source [id number] 01/25/2021 05:09:00 PM EDT [facility] DATE OF EXAMINATION: 01/25/2021 16:25 ED T CHEST 1 VIEW HISTORY: Chest pain TECHNIQUE: Single frontal radiograph of chest COMPARISON: 02/20/2020 FINDINGS: No evidence of focal consolidation, pneumothorax or large pleural effusion.Lungs are clear. Mediastinal structures are unremarkable. No aggressive osseouslesions. IMPRESSION: No focal consolidation. Electronically signed in PS360 by: Stephen Stern M.D. 01/25/2021 17:03 EDT Name Value Range Interpretation Code Description Data Oksana rce(s) Supporting Document(s) ID Date Data Source [id number] 01/25/2021 05:06:00 PM EDT [facility] TSYSORDER [id number] Name Value Range Interpretation Code Description Data Oksana rce(s) Supporting Document(s) COVID-19 NEGATIVE NEGATIVE [facility] Negative results should be treated as pr esumptive and, ifinconsistent with clinical signs and symptoms or necessaryfor patient management, should be tested with differentauthorized or cleared molecular tests.Negative results do not preclude SARS-CoV-2 infection andshould not be used as the sole basis for patient managementdecisions.This is a rapid molecular isothermal nucleic acidamplification technology (NAAT) in vitro diagnostic testutilizing a loop mediated isothermal amplification (LAMP)test with nicking endonuclease amplification reaction(NEAR) intended for the qualitative detection of nucleica tony from the SARS-CoV-2 viral RNA in direct nasal,nasopharyngeal or throat swabs from individuals who aresuspected of COVID-19.Results are for the indentification of SARS-CoV-2 RNA. QqbXMYF-RxM-6 RNA is generally detectable in respiratorysamples during the actue phase of infection. ID Date Data Source [id number] 01/25/2021 04:57:00 PM EDT [facility] TSYSORDER [id number] Name Value Range Interpretation Code Description Data Oksana rce(s) Supporting Document(s) MAGNESIUM 2.5 mg/dL 1.8-2.4 H [facility] ID Date Data Source [id number] 01/25/2021 04:57:00 PM EDT [facility] TSYSORDER [id number] Name Value Range Interpretation Code Description Data Oksana e(s) Supporting Document(s) TROPONIN-HIGH SENSITIVITY 17.4 ng/L 0-60.4 [facility] ID Date Data Source [id number] 01/25/2021 04:57:00 PM EDT [facility] TSYSORDER [id number] Name Value Range Interpretation Code Description Data Oksana e(s) Supporting Document(s) GLUCOSE 107 mg/dL 74-106 H [facility] BLOOD UREA NITROGEN 29 mg/dL 7-18 H [facility] ital CREATININE 1.15 mg/dl 0.55-1.02 H [facility] SODIUM 145 mmol/L 136-145 [facility] POTASSIUM 4.1 mmol/L 3.5-5.1 [facility] CHLORIDE 108 mmol/L 98-107 H [facility] CO2 26 mmol/L 21-32 [facility] CALCIUM 9.0 mg/dL 8.5-10.1 [facility] ANION GAP 11.0 mmol/L 5-12 [facility] GLOMERULAR FILTRATION RATE 46 mL/min [facility] GFR IS CALCULATED IN mL/min/1.73m2 KUNAL L FUNCTION: >90MILDLY DECREASED: 60-89MILDY TO MODERATELY DECREASED: 45-59 MODERATELY TO SEVERELY DECREASED: 30-44SEVERELY DECREASED: 15-29RENAL FAILURE: <15 AST 45 U/L 15-37 H [facility] ALT 99 U/L 14-59 H [facility] ALKALINE PHOSPHATASE 64 U/L 46-116 [facility] pital TOTAL BILIRUBIN 0.3 mg/dL 0.2-1.0 [facility] TOTAL PROTEIN 6.9 g/dL 6.4-8.2 [facility] ALBUMIN 3.4 gm/dL 3.4-5.0 [facility] ID Date Data Source [id number] 01/25/2021 04:49:00 PM EDT [facility] TSYSORDER [id number] Name Value Range Interpretation Code Description Data Oksana [facility](s) Supporting Document(s) PARTIAL THROMBOPLASTIN TIME 21.2 SECONDS 21.2-27.3 [facility] ID Date Data Source [id number] 01/25/2021 04:49:00 PM EDT [facility] T[facility] [id number] Name Value Range Interpretation Code Description Data Oksana rce(s) Supporting Document(s) PROTHROMBIN TIME (PATIENT) 10.4 SECONDS 9.1-11.6 [facility] INR 1.00 0.87-1.06 [facility] ID Date Data Source [id number] 01/25/2021 04:32:00 PM EDT [facility] TSYSORDER [id number] Name Value Range Interpretation Code Description Data Oksana rce(s) Supporting Document(s) WHITE BLOOD COUNT 14.5 K/mm3 4.0-10.0 [facility] RED BLOOD COUNT 4.06 M/mm3 4.00-5.50 [facility] HEMOGLOBIN 12.5 gm/dL 12.0-16.0 [facility] HEMATOCRIT 38.0 % 36.0-48.8 [facility] MEAN CELL VOLUME 93.6 fl 80-96 [facility] MEAN CORPUSCULAR HEMOGLOBIN 30.8 pg 27.0-31.0 [facility] MEAN CORPUSCULAR HGB CONC 32.9 g/dl 32.0-36.0 [facility] RED CELL DISTRIBUTION WIDTH 14.0 % 10.0-14.5 [facility] PLATELET COUNT 228 K/mm3 172-450 [facility] MEAN PLATELET VOLUME 11.5 fl 9.0-13.0 [facility] pital GRAN % 58.5 % 50-80.0 [facility] IG% 0.2 % 0.0-0.2 [facility] LYMPH % 32.2 % 25.0-50.0 [facility] MONO % 8.9 % 2.0-10.0 [facility] EOS % 0.1 % 0-5.0 [facility] BASO % 0.1 % 0.0-2.0 [facility] GRAN # 8.5 K/mm3 2.0-8.00 H [facility] IG# 0.0 K/mm3 0.0-0.2 [facility] LYMPH # 4.7 K/mm3 1.0-5.0 [facility] MONO # 1.3 K/mm3 0.10-1.20 H [facility] EOS # 0.0 K/mm3 0.0-0.5 [facility] BASO # 0.0 K/mm3 0.0-0.2 [facility] ID Date Data Source [id number] 02/22/2020 03:06:00 PM EST [facility] Name Value [...] sole basis to diagnose or exclude recent [id number]. ID Date Data Source [id number] 02/22/2020 03:06:00 PM EST [facility] Name Value Range Interpretation Code Description Data Oksana rce(s) Supporting Document(s) SARS-CoV-2 Antibody, IgG Negative [facility] See [employer] SARS-CoV-2 Ab, IgG ID Date Data Source [id number] 02/22/2020 03:06:00 PM EST [facility] Name Value [...] sole basis to diagnose or exclude recent [id number].This assay was performed using the [employer] Liaison(R)SARS-CoV-2 S1/S2 IgG assay. ID Date Data Source [id number] 02/22/2020 03:06:00 PM EST [facility] Name Value [...] sole basis to diagnose or exclude recent [id number]. ID Date Data Source [id number] 02/20/2020 12:13:00 PM EST [facility] [...] FOR SERVICE 01/31/2020 10:52:39 AM EDT eCW1 ([facility]) Name Value Range Interpretation Code Description Data Oksana rce(s) Supporting Document(s) Laboratory studies (set) PAP REQUEST FOR SERVICE eCW1 ([facility]) ID Date Data Source [id number] 01/31/2020 09:05:11 AM EDT eCW1 ([facility]) Name Value Range Interpretation Code Description Data Oksana rce(s) Supporting Document(s) 4.3 CA 125 [facility] ([facility]) ID Date Data Source [id number] 01/02/2020 01:54:28 PM EDT [facility] Name Value Range Interpretation Code Description Data Oksana rce(s) Supporting Document(s) &PDF [facility] [id number]/[id number]gpEwuSCURZ0sODypWICOWVZPOLK3i oRX [file] [id number] ID Date Data Source [id number] 01/02/2020 12:39:28 PM EDT [facility] Name Value Range Interpretation Code Description Data Oksana rce(s) Supporting Document(s) EKG [facility] [id number]dc3H7M9sAFqQ4GimZGee6fjA1AhI1ZxGJSrYQSPQE7AvIZk jb2 [file] RDoyMDIwMDkyMTEyMzkpIAogICAgICAgICAgICAvVG b6aHDuWU1DV1QdOFMqQJYFORXcpgNuFf0hOWHCJ4dIGoqmA6FVWIjoHGZrTCAeGPl9EBRwF6BtdbHguY BfCSLVICkyWbvnNXJihZ4zgHnlD7BsVGO8l1TqYA8SK5TuCPUrDNRDYXE2x8YyJJItcmvhloljFlEcFE IoZNPhTQRvGL5Wot6aqNVuirJkBBMTHMqbDrpfSX5n eCkqklypV4RojOKzOIQ+NxYkAY8qin6+SrSxCHDaIdd2RNIbVYqtWQTdVKJwDTBhT7fhVWBpUiSiSWPo LbZzPX1Lc2HsbDKcCl1onuKnYehCmHSpPrdpVRJzXUGdBPEmGvZODKSlIPDkNWHsIKZ6ZTYzZIAdFCek DKPjGEA5MseiXDAiERFcKS3aEqTyPGRbCTF5RLMiKI BhTYAbdcTAMQTkNBF1DnFsMTWfNRTrTNJiCOcuHQKaNIYqUGOzIIQ0KFN3HAVvCzIzQYTrDKLkJQWtWC CjWGMkkfAZOZWdZNExLMG5IKMqRHXmHPXnXCmtBOJuHDOaCAvuDNWyENIrKX0uCtKhUAFcZGAfNPvmVO AwMDAgbiAKMDAwMDAwMDQwOSAwMDAwMCBuIAowMDAw TWViQMNeHIUpGGYdRH6oSgEbLEUqCKL8PPZvITXsVBFumsFVGCKgJOHwLDg7LQBjQRRaZYHyDLaeSSBh NYNhALA2KDTuSJAyZL8wHfXcWRViSLM2KpEbNHOgCWEsaeRCNPRpPJGtTWJ9PgUkOBPuIOBiBYlhYPZo JWOvZRpqGVTpXBUzTE9hTgKcAXIdISJjPJadIQTrSE JfuaFYHYFxRCNaOMOlGgAsNUTnNPUqOFoyEDEwLCQ0IZY9SWKnRPWmVH3hLfKyBKNiCUC5FRhzHOYpOL DhgkHMUJQbKCPmJVaaNQItODUbSCUzQTvuPJFcIMVeEHY6ISVsIWPiDO6dWqYaLPHzZHJyVRLkFgV2Cw RzYvSSsXCpfVckjmj7EKieA4n1JEUiAPwaMI7gjfMi SSHtJjbfLi8ktMH0GFQrRgnZEd2Ja8IeklD4ehQaTkE8HeX6PaFuRS0F ID Date Data Source [id number] 01/02/2020 12:26:41 PM EDT [facility] INFORMATIONPatient MRN Name Date of Age Gend*PT [id number] Woodrow Urban 1945 74 years F HOPPT Location Admission Date/Time Visit ID Attending [id number] 01/02/20 1121 --- Alejandro Aiken MD([id number]) EPI ID CSN Admitting Provider [id number] Alejandro Aiken MD([id number])Updated H&PPlease see the scanned/dictated outpatient note.I have reviewed the note, clinical history and physical exam findings. Therehave been no significant changes.Plan as outlined in the outpatient note.Risk/benifit/alternative of cardiac catheterization was discussed withpatient/family. Risks included, but not limited to; [place], CVA, , renalimpairment, vascular complication, and need for emergency surgery were discussedand accepted by patient.Alejandro Aiken MD, [facility]IInterventional Commissioning Specialist Name Value Range Interpretation Code Description Data Oksana rce(s) Supporting Document(s) ID Date Data Source [id number] 01/02/2020 01:31:37 PM EDT [facility] Name Value Range Interpretation Code Description Data Oksana rce(s) Supporting Document(s) WBC 9.3 10*3/uL (4.1-11.0) [facility] [place] RBC 4.68 10*6/uL (4.00-5.40) [facility] HGB 14.2 g/dL (12.0-16.0) [facility] HCT 43.9 % (36.0-47.0) [facility] PERFORMED AT [address] [place] [address] [place] [address] MCV 93.8 fL (80.0-95.0) [facility] MCH 30.4 pg (27.0-32.0) [facility] MCHC 32.4 g/dL (32.0-36.0) [facility] RDW 14.1 % (10.5-14.5) [facility] PLT 230 10*3/uL (150-450) [facility] MPV 9.1 fL (7.1-10.7) [facility] ID Date Data Source [id number] 12/29/2019 02:05:00 PM EDT [facility] Name Value Range Interpretation Code Description Data Oksana rce(s) Supporting Document(s) SARS-CoV-2, NIXON Not Detected Not Detected [facility] This nucleic acid amplification test was developed and its performancecharacteristics determined by [facility]. Nucleic acidamplification tests include PCR and [...] in this assay. ID Date Data Source [id number] 12/28/2019 08:00:00 AM EDT [facility] Name Value Range Interpretation Code Description Data Oksana rce(s) Supporting Document(s) SARS coronavirus 2 RNA [facility] This lab was ordered by [facility] a nd reported by [facility]. ID Date Data Source [id number] 12/29/2019 02:05:00 PM EDT [facility] Name Value Range Interpretation Code Description Data Oksana rce(s) Supporting Document(s) Inpatient [facility] Received ID Date Data Source [id number] 12/29/2019 02:06:00 PM EDT [facility] Name Value Range Interpretation Code Description Data Oksana rce(s) Supporting Document(s) SARS COV2 Not Detected Not Detected [facility] This nucleic acid [...] SARS-CoV-2 virusand/or diagnosis of COVID-19 infection under (b)(1) of the Act, 21 U.S.C. 360bbb-3(b) (1), [...] in this assay. ID Date Data Source [id number] 12/03/2019 08:06:00 AM EDT [facility] Name Value Range Interpretation Code Description Data Oksana rce(s) Supporting Document(s) VITAMIN D, 25-HYDROXY 28.2 ng/mL 30.0-100.0 [facility] Vitamin D deficiency has been defined by the [place] of[place] and an Endocrine Society practice guideline as alevel of serum 25-OH vitamin D less than 20 ng/mL (1,2).The Endocrine Society went on to further define vitamin Dinsufficiency as a level between 21 and 29 ng/mL (2).1. IOM ([place] of [employer]). 2010. Dietary reference intakes for calcium and D. [place]: The National Academies Press.2. Kristie DAMON, Gaby VILLATORO, Ilia SCHMIDT, et al. Evaluation, treatment, and prevention of vitamin D deficiency: an Endocrine Society clinical practice guideline. JCEM. 2010; 96(7):1911- 30.Performed at: - [facility] [address] [id number] Director: Radha Guadalupe MD, Phone: [phone] ID Date Data Source [id number] 12/03/2019 08:06:00 AM EDT [facility] Name Value Range Interpretation Code Description Data Oksana rce(s) Supporting Document(s) Vitamin D, 25-Hydroxy 28.2 ng/mL 30.0-100.0 Below low normal [facility] Vitamin D deficiency has been defined by the [place] of[place] and an Endocrine Society practice guideline as alevel of serum 25-OH vitamin D less than 20 ng/mL (1,2).The Endocrine Society went on to further define vitamin Dinsufficiency as a level between 21 and 29 ng/mL (2).1. IOM ([place] [employer]). 2010. Dietary reference intakes for calcium and D. [place]: The National Academies Press.2. Gaby Torres, Ilia SCHMIDT, et al. Evaluation, treatment, and prevention of vitamin D deficiency: an Endocrine Society clinical practice guideline. JCEM. 2010; 96(7):191-. ID Date Data Source [id number] 12/02/2019 03:41:00 PM EDT [facility] Name Value Range Interpretation Code Description Data Oksana rce(s) Supporting Document(s) GLUCOSE 89 mg/dL 74-106 [facility] BLOOD UREA NITROGEN 16 mg/dL 7-18 [facility] ital CREATININE 0.8 mg/dL 0.6-1.0 [facility] SODIUM 141 mmol/L 136-145 [facility] POTASSIUM 4.3 mmol/L 3.5-5.1 [facility] CHLORIDE 104 mmol/L 98-107 [facility] CO2 28 mmol/L 21-32 [facility] CALCIUM 9.0 mg/dL 8.5-10.1 [facility] ANION GAP 9.0 mmol/L 5-12 [facility] GLOMERULAR FILTRATION RATE 71 mL/min [facility] GFR IS CALCULATED IN mL/min/1.73m2 KUNAL L FUNCTION: >90MILDLY DECREASED: 60-89MILDY TO MODERATELY DECREASED: 45-59 MODERATELY TO SEVERELY DECREASED: 30-44SEVERELY DECREASED: 15-29RENAL FAILURE: <15 AST 21 U/L 15-37 [facility] ALT 29 U/L 12-78 [facility] ALKALINE PHOSPHATASE 74 U/L 46-116 [facility] pital TOTAL BILIRUBIN 0.4 mg/dL 0.2-1.0 [facility] TOTAL PROTEIN 6.8 g/dl 6.4-8.2 [facility] ALBUMIN 3.6 gm/dL 3.4-5.0 [facility] ID Date Data Source [id number] 12/02/2019 03:26:00 PM EDT [facility] Name Value Range Interpretation Code Description Data Oksana rce(s) Supporting Document(s) FREE T4 1.07 ng/dL 0.76-1.46 [facility] ID Date Data Source [id number] 12/02/2019 03:26:00 PM EDT [facility] Name Value Range Interpretation Code Description Data Oksana rce(s) Supporting Document(s) TSH 1.85 uIU/mL 0.36-3.74 [facility] ID Date Data Source [id number] 12/02/2019 02:37:00 PM EDT [facility] Name Value Range Interpretation Code Description Data Oksana rce(s) Supporting Document(s) WHITE BLOOD COUNT 8.4 K/mm3 4.0-10.0 [facility] RED BLOOD COUNT 4.50 M/mm3 4.00-5.50 [facility] HEMOGLOBIN 13.6 gm/dL 12.0-16.0 [facility] HEMATOCRIT 42.0 % 36.0-48.8 [facility] MEAN CELL VOLUME 93.3 fl 80-96 [facility] MEAN CORPUSCULAR HEMOGLOBIN 30.2 pg 27.0-31.0 [facility] MEAN CORPUSCULAR HGB CONC 32.4 g/dl 32.0-36.0 [facility] RED CELL DISTRIBUTION WIDTH 13.3 % 10.0-14.5 [facility] PLATELET COUNT 236 K/mm3 172-450 [facility] ID Date Data Source [id number] 12/02/2019 03:17:00 PM EDT [facility] FAX [phone] Name Value Range Interpretation Code Description Data Oksana rce(s) Supporting Document(s) CREATINE PHOSPHOKINASE 118 U/L 26-192 [facility] ospital ID Date Data Source [id number] 12/02/2019 03:17:00 PM EDT [facility] FAX [phone] Name Value Range Interpretation Code Description Data Oksana rce(s) Supporting Document(s) CHOLESTEROL 235 mg/dL 0-200 H [facility] TRIGLYCERIDES 198 mg/dL 0-150 H [facility] LDL CHOLESTEROL 147 mg/dL 0-100 H [facility] HDL CHOLESTEROL 48 mg/dL 40-60 [facility] CHOL/HDL RATIO 4.9 0.0-5.0 [facility] Procedure Social History Code Duration Value Status Description Data Source(s ) Smoking 02/02/2020 12:00:00 AM EDT Never Smoker completed Never S [place] eCW1 ([facility]) Smoking 02/02/2020 12:00:00 AM EDT Never Smoker completed Never S [place] eCW1 ([facility]) Alcohol intake 01/02/2020 12:00:00 AM EDT Never completed [facility] Smoking 01/02/2020 12:00:00 AM EDT Never smoker completed Never s [facility] Vital Signs ID Date Data Source [id number] Name Value Range Interpretation Code Description Data Source(s) Systolic blood pressure 133 mm[Hg] 133 mm[Hg] M EDENT ([facility]) Diastolic blood pressure 62 mm[Hg] 62 mm[Hg] MEDENT ([facility]) Body weight 280.00 [lb_av] 280.00 [lb_av] MEDEN T ([facility]) Body height 67 [in_i] 67 [in_i] MEDENT ([facility]) 5'7" Body mass index (BMI) [Ratio] 43.8 kg/m2 43.8 k g/m2 MEDENT ([facility]) Body weight 281.0 [lb_av] 281.0 [lb_av] eCW1 ([facility]) Body height 65.5 [in_i] 65.5 [in_i] eCW1 ([facility]) Body mass index (BMI) [Ratio] 46.04 kg/m2 46.04 kg/m2 eCW1 ([facility]) Heart rate 72 /min 72 /min eCW1 (Count includes the [facility]) Respiratory rate 18 /min 18 /min eCW1 ([facility]) Body temperature 98.1 [degF] 98.1 [degF] eCW1 ( [facility]) Systolic blood pressure 137 mm[Hg] 137 mm[Hg] e CW1 ([facility]) Diastolic blood pressure 70 mm[Hg] 70 mm[Hg] eCW1 ([facility]) Body weight 245 [lb_av] 245 [lb_av] eCW1 ([facility]) Body weight 111.13 kg 111.13 kg eCW1 ([facility]) Body height 65.5 [in_i] 65.5 [in_i] eCW1 ([facility]) Body mass index (BMI) [Ratio] 40.15 kg/m2 40.15 kg/m2 eCW1 ([facility]) Systolic blood pressure 148 mm[Hg] 148 mm[Hg] e CW1 ([facility]) Diastolic blood pressure 78 mm[Hg] 78 mm[Hg] eCW1 ([facility]) Heart rate 83 /min 83 /min MEDENT ([facility] Systolic blood pressure 130 mm[Hg] 130 mm[Hg] M EDENT ([facility]) Diastolic blood pressure 68 mm[Hg] 68 mm[Hg] MEDENT ([facility] Body weight 270.00 [lb_av] 270.00 [lb_av] JODIEEN T ([facility] Body height 66 [in_i] 66 [in_i] MEDENT ([facility]) 5'6" Body mass index (BMI) [Ratio] 43.6 kg/m2 43.6 k g/m2 MEDENT ([facility] Oxygen saturation in Arterial blood by Pulse oximetry 98 % 98 % JODIEENT ([facility]) Body surface area Derived from formula 2.27 m2 2.27 m2 [facility] Systolic blood pressure 154 mm[Hg] 154 mm[Hg] [facility] Diastolic blood pressure 59 mm[Hg] 59 mm[Hg] [facility] Heart rate 82 /min 82 /min [facility] Body temperature 36.72 Sonya 36.72 Sonya [facility] Respiratory rate 18 /min 18 /min [facility] Oxygen saturation in Arterial blood by Pulse oximetry 97 % 97 % [facility] Body height 167.6 cm 167.6 cm [facility] Body weight 124.739 kg 124.739 kg [facility] Body mass index (BMI) [Ratio] 44.39 kg/m2 44.39 kg/m2 [facility] Patient Treatment Plan of Care Planned Activity Planned Date Details Description Data Source (s) Levetiracetam 1000 MG Oral Tablet 06/17/2019 12:00:00 AM [facility] clopidogrel 75 MG Oral Tablet [facility]
== END 2021-01-26 18:37 | disposition home or self-care (01) ==
LOC: M ED 18:44 → M SDC 18:45 → M PCU 20:10 → UNDOADMIN 20:10 → M PCU 20:10 → M SDC 01-26 18:37 → UNDODISIN 01-26 18:37
PROVIDERS: ATTEND Internal Medicine Cardiovascular Disease
DX: I44.2 Atrioventricular block, complete (principal); Z68.42 Body mass index [BMI] 45.0-49.9, adult; I10 Essential (primary) hypertension; E66.01 Morbid (severe) obesity due to excess calories; J44.9 Chronic obstructive pulmonary disease, unspecified; K21.9 Gastro-esophageal reflux disease without esophagitis; Z79.899 Other long term (current) drug therapy
CPT/HCPCS: 33208; 71045; 71046; 76000; 93005; 94640; 96365; 96366; 99284; C1785; C1898; J0690; J2250; J2405; J3010; Q9967

== ENCOUNTER → 2022-09-09 | Outpatient (CLI) | payer MEDICARE, OTHER ==
[~2022-09-09] MED LIST: ALBU2.5V10 NEB; ASPI-1 PO; CHLO125TA PO; FISH1000 PO; LIDOCAINE 1% MDV 20ML VIAL As Ordered ONE; LISI10TA22 PO; PRED10TA2 PO; PROAAER10 INH; PULM90IN INH
[2022-09-09 14:15] VITALS: BP 158/84
== END ==
LOC: M IRPRO 12:35
PROVIDERS: ATTEND Otolaryngology
DX: E04.2 Nontoxic multinodular goiter (principal)